=== PATIENT | male | born 1960 | race Caucasian/White ===

== ENCOUNTER 2016-12-08 10:52 | Observation (INO) ==
--- NOTE | 2016-12-08 11:17 | Emergency Department Note ---
Disposition Clinical Impression: Atrial fibrillation with RVR Disposition: Admitted As Inpatient Condition: Good Referrals: NO,PCP [Primary Care Provider] - Forms: ED Satisfaction Letter Time of Disposition: 13:06 Arrhythmia/Palpitations HPI - General Chief Complaint: ED Arrhythmia/Palpitations Stated Complaint: in A-Fib Time Seen by Provider: 12/08/16 11:10 Source: patient, family Limitations: no limitations Nursing Notes Reviewed: Yes Vital Signs Reviewed: Yes - History of Present Illness HPI Narrative: Patient presents emergency room with palpitations and history of A. fib. Onset of symptoms yesterday. Did not see his cryogenics engineer this morning but was unable to do so. Came in emergency room for evaluation Pt Subjective Complaint: palpitations Onset (ago): day(s) Duration: constant Severity: moderate Context: occurred during rest Arrhythmia History: atrial fibrillation Associated symptoms: Reports: denies other symptoms Treatments prior to arrival: vagal maneuvers, beta-mar - Related Data Home Medications Medication Instructions Recorded Confirmed Tamsulosin [Flomax] 0.4 mg PO DAILY 04/13/16 07/01/16 Rivaroxaban [Xarelto] 20 mg PO DAILY 06/10/16 07/01/16 Metoprolol [Lopressor] 25 mg PO BID 07/01/16 07/01/16 Previous Rx's Medication Instructions Recorded Dofetilide [Tikosyn] 0.5 mg PO Q12H capsule 07/05/16 Allergies Allergy/AdvReac Type Severity Reaction Status Date / Time No Known Allergies Allergy Verified 12/08/16 11:02 All systems ED: reviewed and negative except as stated. Constitutional: Denies: fever, chills Cardiovascular: Denies: chest pain, dyspnea on exertion Respiratory: Denies: cough, dyspnea, wheezes Musculoskeletal: Denies: back pain, neck pain Past Medical History - Past Medical History Attestation: Yes The following information was validated with the patient. Source: patient Medical history: Reports: arthritis, atrial fibrillation, cancer, cardiomyopathy , COPD, coronary artery disease, GERD, hyperlipidemia, osteoporosis Surgical history: Reports: herniorrhaphy, orthopedic, other, other Psychiatric history: Reports: no psych history - Social History Smoking Status: Former smoker Smokeless Tobacco Status: No Alcohol use: Reports: none Drug use: Reports: none Physical Exam - General Limitations: no limitations General appearance: alert, in no apparent distress - Chest Chest inspection: Present: normal inspection, symmetric chest wall rise - Respiratory Respiratory exam: Present: normal lung sounds bilaterally. Absent: respiratory distress, wheezes, accessory muscle use - Cardiovascular Cardiovascular exam: Present: tachycardia, irregular rhythm, normal heart sounds - Extremities Exam Extremities exam: Present: normal inspection, full ROM. Absent: pedal edema - Back Exam Back exam: Present: normal inspection, full ROM - Neurological Exam Neurological exam: Present: alert, oriented X3, CN II-XII intact, normal gait - Psychiatric Psychiatric exam: Present: normal affect, normal mood Course Course Narrative: Patient seen and examined the time of arrival. See history of present illness. 56-year-old male presents emergency room for evaluation of A. fib with RVR. Long-standing history of this illness. He is on several medications for. He has been cardioverted 3 times in the past by the cryogenics engineer team here at this hospital. Patient denies any chest pain shortness of breath headache vision changes nausea vomiting or diarrhea. No recent illnesses fevers or chills. Patient said that he felt onset yesterday afternoon. They attempted to be seen at the cardiology office today and not able to be evaluated. Patient came to the emergency room at that time. Patient has been appears to be A. fib RVR on the monitor. Basic cardiac evaluation be completed. Cardizem drip to be ordered. Consultation placed to the cryogenics engineer Dr. Bob on arrival here just to make sure that they are aware the patient is here. He had no other recommendations except for hospital admission and then cardiac evaluation as an inpatient. Patient is followed by Dr. Jack Blount and was told to possibly get a ablation completed if he went back into A. fib. Patient otherwise has no acute findings. Lungs are clear heart is regular but stable. Patient has normal vital signs at this time except for tachycardia. Disposition pending treatment course and medication intervention. - Reevaluation(s) Reevaluation #1: Labs are within normal limits. Troponin is negative. Chest x-ray stable. Patient started on Cardizem drip with minimal change in the heart rate. He says that he never responsive medications appropriately. Patient otherwise has no other symptoms at this time. Admission process completed. and I reviewed the patient's presentation symptoms and medical history. No other recommendations from a hospitalist at this time. Patient will be admitted for further evaluation and definitive management. Patient stable resting comfortably in the bed with appropriate intervention provided. Vision is already on Cymbalta no further anticoagulation needed at this point. Time: 13:05 Vital Signs Temperature 98.3 F 12/08/16 10:57 Pulse Rate 112 12/08/16 10:57 Respiratory Rate 20 12/08/16 10:57 Blood Pressure 138/83 12/08/16 10:57 O2 Sat by Pulse Oximetry 96 12/08/16 10:57 Temperature 98.3 F 12/08/16 10:57 Pulse Rate 138 12/08/16 12:11 Respiratory Rate 18 12/08/16 12:11 Blood Pressure 130/45 12/08/16 12:11 O2 Sat by Pulse Oximetry 96 12/08/16 12:11 Oxygen Delivery Oxygen Delivery Room Air Arrhythmia/Palpitations - MDM Narrative Medical decision making narrative: Brett cedillo RVR - Medical Records Medical records reviewed: Yes I reviewed the patient's medical records. - Lab Data Lab results reviewed: Yes I reviewed the patient's lab results. Result diagrams: 12/08/16 11:25 12/08/16 11:25 Lab Results 12/08/16 12/08/16 12/08/16 Range/Units 11:25 11:25 11:25 WBC 24.1 H (4.3-11.1) K/mcL RBC 5.12 (4.19-5.50) M/mcL Hgb 14.2 (12.9-16.9) g/dL Hct 43.6 (37.5-50.1) % MCV 85.2 (83.0-100.0) fL MCH 27.7 L (28.0-33.3) pg MCHC 32.6 (31.6-35.5) g/dL RDW 13.4 (11.5-14.5) % Plt Count 259 (140-400) K/mcL MPV 10.3 (9.4-12.4) fL Immature Gran % 0.2 (0-4) % Seg Neutrophils % 19.7 % Lymphocytes % 75.1 % Monocytes % 3.0 % Eosinophils % 1.6 % Basophils % 0.4 % Neutrophils # 4.8 (1.6-8.9) K/mcL Lymphocytes # 18.1 H (0.6-4.6) K/mcL Monocytes # 0.7 (0.0-1.3) K/mcL Eosinophils # 0.4 (0.0-0.6) K/mcL Basophils # 0.1 (0.0-0.2) K/mcL Smudge Cells Present A (Not Present) Platelet Estimate Normal (Normal) PT (9.4-12.1) Seconds INR APTT (26.0-36.0) Seconds Sodium 142 (136-145) mEq/L Potassium 4.0 (3.5-4.5) mEq/L Chloride 109 (98-109) mEq/L Carbon Dioxide 22 (19-29) mEq/L BUN 18 (8-26) mg/dL Creatinine 0.92 (0.72-1.25) mg/dL Est GFR ( Amer) > 60 (> 60) Est GFR (Non-Af Amer) > 60 (> 60) BUN/Creatinine Ratio 20 (6-26) Glucose 144 H (70-99) mg/dL Calculated Osmolality 298 (280-300) Calcium 9.5 (8.6-10.8) mg/dL Troponin I 0.00 (0-0.03) ng/mL 12/08/16 Range/Units 11:25 WBC (4.3-11.1) K/mcL RBC (4.19-5.50) M/mcL Hgb (12.9-16.9) g/dL Hct (37.5-50.1) % MCV (83.0-100.0) fL MCH (28.0-33.3) pg MCHC (31.6-35.5) g/dL RDW (11.5-14.5) % Plt Count (140-400) K/mcL MPV (9.4-12.4) fL Immature Gran % (0-4) % Seg Neutrophils % % Lymphocytes % % Monocytes % % Eosinophils % % Basophils % % Neutrophils # (1.6-8.9) K/mcL Lymphocytes # (0.6-4.6) K/mcL Monocytes # (0.0-1.3) K/mcL Eosinophils # (0.0-0.6) K/mcL Basophils # (0.0-0.2) K/mcL Smudge Cells (Not Present) Platelet Estimate (Normal) PT 20.3 H (9.4-12.1) Seconds INR 1.8 APTT 40.9 H (26.0-36.0) Seconds Sodium (136-145) mEq/L Potassium (3.5-4.5) mEq/L Chloride (98-109) mEq/L Carbon Dioxide (19-29) mEq/L BUN (8-26) mg/dL Creatinine (0.72-1.25) mg/dL Est GFR ( Amer) (> 60) Est GFR (Non-Af Amer) (> 60) BUN/Creatinine Ratio (6-26) Glucose (70-99) mg/dL Calculated Osmolality (280-300) Calcium (8.6-10.8) mg/dL Troponin I (0-0.03) ng/mL - Radiology Data Radiology results reviewed: Yes I reviewed the patient's radiology results. Chest x-ray stable - EKG Data EKG attestation: Yes I reviewed and interpreted this EKG. Rate: tachycardia Rhythm: A.Fib Critical Care Time Critical Care Time: Yes Total Critical Care Time: 35 Attestation: Independent of procedures and medical intervention Attestation Statement - Attestation Attestation: I examined this patient and my medical decision-making was reviewed with the PHARMACY ORDER ENTRY TECHNICIAN/PA/Advanced Practice Nurse/Resident Physician. I agree with the documented findings, disposition and treatment plan as described except to the extent set forth below. Patient to the emergency department with a chief complaint of A. fib. He states his palpitations started yesterday. He tried to go to the cardiology office but there was not a cryogenics engineer in to see him. History of the same. Recently placed on Tikacin and has done well on that until this point. Patient states he was told he needed an ablation of happened again. On examination is awake alert no acute distress. Lungs clear. Heart tachycardia and irregularly irregular. Heart rate running 140s to 150s. Plan. Cardizem, cardiac workup, cardiac consultation and admission. Patient is anticoagulated on Xarelto.
[2016-12-08 11:39] LABS: Basophils # 0.1 K/mcL (0.0-0.2); Basophils % 0.4 %; Eosinophils # 0.4 K/mcL (0.0-0.6); Eosinophils % 1.6 %; Hematocrit 43.6 % (37.5-50.1); Hemoglobin 14.2 g/dL (12.9-16.9); Immature Granulocytes % 0.2 % (0-4); Lymphocytes # 18.1 K/mcL (0.6-4.6); Lymphocytes % 75.1 %; Mean Corpuscular HGB Conc 32.6 g/dL (31.6-35.5); Mean Corpuscular Hemoglobin 27.7 pg (28.0-33.3); Mean Corpuscular Volume 85.2 fL (83.0-100.0); Mean Platelet Volume 10.3 fL (9.4-12.4); Monocytes # 0.7 K/mcL (0.0-1.3); Platelet Count 259 K/mcL (140-400); Red Blood Count 5.12 M/mcL (4.19-5.50); Red Cell Distribution Width 13.4 % (11.5-14.5); Segmented Neutrophils % 19.7 %
[2016-12-08 11:43] LABS: Neutrophils # 4.8 K/mcL (1.6-8.9)
[2016-12-08 11:46] LABS: BUN/Creatinine Ratio 20 (6-26); Blood Urea Nitrogen 18 mg/dL (8-26); Calcium 9.5 mg/dL (8.6-10.8); Carbon Dioxide 22 mEq/L (19-29); Chloride 109 mEq/L (98-109); Glucose 144 mg/dL (70-99); Osmolality,Calculated 298 (280-300); Sodium 142 mEq/L (136-145); eGFR For African Americans > 60 (> 60); eGFR For Non-African Americans > 60 (> 60)
[2016-12-08 11:55] LABS: INR 1.8; Prothrombin Time 20.3 Seconds (9.4-12.1)
[2016-12-08 11:57] LABS: Activated Partial Thrombo Time 40.9 Seconds (26.0-36.0)
[2016-12-08 12:02] LABS: Platelet Estimate Normal (Normal); Smudge Cells Present (Not Present)
[2016-12-08 12:31] LABS: Thyroid Stimulating Hormone 1.636 mcIU/mL (0.350-4.840)
--- NOTE | 2016-12-08 13:58 | Cardiology Consult Note ---
Date of Encounter: 12/08/16 Time of Encounter: 13:55 Assessment and Plan (1) Atrial fibrillation with RVR Current Visit: No Status: Acute Per cardiology: -Known history of atrial fibrillation, had been controlled with tikosyn. -Presented today with a.fib RVR. Of note, patient's metoprolol had recently been stopped in outpatient setting for concerns of shortness of breath and fatigue. -On tikosyn, xarelto. Denies missed doses of xarelto. -Denies bleeding of blood loss. -Started on cardizem drip in ER. Titrate to keep HR less than 100 beats/min and BP greater than 100 systolic. -Per review of old records, it appears patient has had multiple cardioversions. -Mg 1.9. TSH within normal limits. -Recommend titration of cardizen drip as above for rate control. Continue Xarelto. -Will discuss with Dr. Bob regarding continuing current tikosyn dose ( anticipate may need to stop with failed therapy) and resuming BB. -Will make patient NPO after midnight-- will discuss with Dr. Jack Blount tomorrow potential need for ablation. -Will continue to monitor. (ESVIN) (2) Nonischemic cardiomyopathy Current Visit: No Status: Chronic Per cardiology: -Known history of [id number] cardiomyopathy. -Most recent echo 03/20/16 with LVEF 60%. -ANDIE 02/11/2016 with LVEF 30%. -Beta mar recently stopped. -Patient states 40 pound weight gain since June. -Weight June 236lbs, 239lbs July, and 253.2lbs November. -Chest x-ray with no acute process. Mild pedal edema that states about baseline. Otherwise, euvolemic on exam. -Will check echocardiogram for history of cardiomyopathy. -Will continue to monitor. (ESVIN) (3) Chronic lymphocytic leukemia Current Visit: No Status: Chronic Per cardiology: -KNown CLL. -WBC today 24.51. -WBC June 2016. -Management per primary service. (ESVIN) Discussion w patient/family: The assessment and plan as outlined above was discussed with the patient and/or family members who expressed understanding and agreement. All questions were answered. Thank you for involving us in the care of your patient. Please call with any questions. Patient seen and examined with CANDACE Jarquin Discussed and reviewed with Dr. Bob. History of Present Illness Consult date: 12/08/16 Requesting physician: Rylan Cantor Consult reason: a.fib RVR Chief complaint: a.fib History of present illness: Mr. Smith is a 56 year old male with a relevant past medical history of VIDA with CPAP, CLL, atrial fibrillation status post multiple cardioversions, non- ischemic cardiomyopathy, CHF. Patient has long standing history of atrial fibrillation with RVR. Patient states he felt ok until yesterday afternoon when he could tell he was out of rhythm again. Patient denies recent illness. Patient admits to gaining 40 pounds since June. Patient states was blaming weight gain on metoprolol so it was discontinued approximately 2 weeks ago. Patient states that mentioned possible a.fib ablation. Patient presented to our office, requesting ECG, however there were no providers in office today so patient decided to come to ER. Patient was noted to be in a.fib with RVR and cardiology was consulted. Patient reports compliance with Tikosyn and has not missed any doses. Also compliance with Xarelto and has not missed any doses and denies any active bleeding or blood loss. (ESVIN) Past Med Surg Social Fam HX - Past Medical History Attestation: Yes The following information was validated with the patient. Source: patient, old records reviewed, obtained from family Medical history: arthritis, atrial fibrillation, cancer, cardiomyopathy, COPD, coronary artery disease, GERD, hyperlipidemia, osteoporosis Psychiatric history: no psych history - Past Surgical History Surgical History: herniorrhaphy, orthopedic, other, other - Social History Smoking Status: Former smoker Smokeless Tobacco Status: No Alcohol use: none Drug use: none - Family History Mother Family Member Ethnicity: Non- Living Status: Hx Family Cardiac Disorders: Yes (CABG) Hx Family Respiratory Disorders: Yes (COPD) Hx Family Cancer: No Hx Family Endocrine Disorder: Yes (renal diease) Father Family Member Ethnicity: Non- Living Status: Still Living Hx Family Cardiac Disorders: Yes (bad valve, aneysum heart stents, [place]) Hx Family Respiratory Disorders: No Medications and Allergies Tamsulosin [Flomax] 0.4 mg PO DAILY 04/13/16 [History] Rivaroxaban [Xarelto] 20 mg PO DAILY 06/10/16 [History] Metoprolol [Lopressor] 25 mg PO BID 07/01/16 [History] Dofetilide [Tikosyn] 0.5 mg PO Q12H capsule 07/05/16 [Rx] Allergies No Known Allergies Allergy (Verified 12/08/16 13:31) All Systems Review: A 10-system review of systems was performed and is negative for pertinent findings except as documented above in the HPI. - Constitutional Constitutional: weight gain - Cardiovascular Cardiovascular: as per HPI, rapid heart rate Physical Examination Vital Signs, Last 4 Hours Temp Pulse Resp BP Pulse Ox 12/08/16 13:50 98.3 F 87 18 119/69 98 12/08/16 13:30 18 125/70 12/08/16 13:08 106 18 125/70 97 General: Conversant, No Apparent Distress HEENT: Atraumatic, Normocephaly, Mucus Membranes Moist Neck: No JVD, Normal carotid pulses Cardiac: Other (Irregularly, irregular. Tachycardic. ) Lungs: Normal Breath Sounds, No Wheeze, Rales, Rhonchi Neuro: Alert and responsive, No focal deficits noted Abdomen: Soft, Non-Tender Skin: No rashes noted on visualized skin Musculoskeletal: No Chest Wall Tenderness Extremities: No Clubbing, No Cyanosis, Normal Pulses, Other (Mild non-pitting pedal edema. ) Results 12/08/16 11:25 12/08/16 11:25 Impressions Chest X-Ray 12/08/16 11:24 IMPRESSION: No evidence of acute cardiopulmonary disease. D/ / Duncan Gould MD / Duncan Gould MD Interpreting Provider: Duncan Gould MD Active Medications Diltiazem HCl 125 mg/ Dextrose 125 mls @ 5 mls/hr IVC .Q24H SHIREEN; 5 MG/HR PRN Reason: Protocol Stop: 06/09/17 11:46 Last Admin: 12/08/16 12:11 Dose: 5 mg/hr, 5 mls/hr Laboratory Tests 06/10/16 06/19/16 07/04/16 11:27 00:38 09:08 WBC 24.5 H 21.5 H 23.0 H Potassium Creatinine Troponin I TSH 12/08/16 12/08/16 12/08/16 11:25 11:25 11:25 WBC 24.1 H Potassium 4.0 Creatinine 0.92 Troponin I 0.00 TSH 1.636 - Imaging and Cardiology Echo: report reviewed Cardiac cath: report reviewed - EKG Interpretation EKG results cardiology: personally reviewed (ECG with atrial fibrillation with RVR, HR 145. QT319, QTC 403.), other (Telemetry reviewed and currently atrial fibrillation RVR with HR 120s.) Consult Discharge Plan - Plan Referrals: Becky Davis MD [Primary Care Provider] -
[2016-12-08 14:27] LABS: Magnesium 1.9 mg/dL (1.6-2.6)
[2016-12-08] MEDS ORDERED: Acetaminophen 325 MG TABLET PO ONE (15:50)
[2016-12-08] MEDS ORDERED: Acetaminophen 325 MG TABLET PO PRN (16:08)
--- NOTE | 2016-12-08 16:16 | Internal Med History&Physical ---
Date of Encounter: 12/08/16 Time of Encounter: 16:14 Assessment and Plan (1) Atrial fibrillation with RVR Current visit: No Status: Acute We will restart Cardizem drip and titrate to maintain heart rate between 80 and 110 as long as blood pressure tolerates. Cardiology was consulted. 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 Trend troponin to rule out ACS. Continue with Xarelto, hold tikosyn for now - we will discuss with cardiology. He is at high risk for morbidity and complications due to IV Cardizem which requires continuous intensive cardiac monitoring and titration. (2) DVT prophylaxis Current visit: No Status: Acute on Xarelto (3) Cardiomyopathy Current visit: No Status: Acute No evidence of exacerbation. We will monitor for fluid overload Qualifiers: Cardiomyopathy type: unspecified Qualified Code(s): I42.9 - Cardiomyopathy , unspecified (4) BPH (benign prostatic hyperplasia) Current visit: No Status: Chronic Continue with Flomax. Qualifiers: Prostatic enlargement morphology: unspecified morphology Lower urinary tract symptom presence: symptoms absent Qualified Code(s): N40.0 - Benign prostatic hyperplasia without lower urinary tract symptoms (5) Obesity (BMI 30-39.9) Current visit: No Status: Chronic Outpatient follow-up. Outpatient weight loss regimen. (6) Chronic lymphocytic leukemia Current visit: No Status: Chronic We will monitor white blood cell count. He is not currently receiving treatment. Being monitored by PCP. Internal Medicine - H&P: HPI Chief complaint: Palpitations Admitted From: Emergency Dept Plans for Post Hospital Care: Home History of present illness: Mr. Smith is a 56 year old male with past medical history of paroxysmal atrial fibrillation and nonischemic cardiomyopathy, and multiple cardioversions for recurrent bouts of atrial ablation with rapid ventricular response. He presented to the hospital for palpitations that started last night and felt as fluttering in the middle of the chest, continuous through the night, with no aggravating or alleviating factors. Denies associated chest pain. Reports some dyspnea on exertion. In the emergency department he was found to be in atrial fibrillation with rapid ventricular response. He was started on IV diltiazem drip. A 10 point review of systems was negative except as above. Past Med Surg Social Fam HX - Past Medical History Medical history: arthritis, atrial fibrillation, cancer, cardiomyopathy, COPD, coronary artery disease, GERD, hyperlipidemia, osteoporosis Psychiatric history: no psych history - Past Surgical History Surgical History: herniorrhaphy, orthopedic, other, other - Social History Smoking Status: Former smoker Smokeless Tobacco Status: No Alcohol use: none Drug use: none - Family History Mother Family Member Ethnicity: Non- Living Status: Hx Family Cardiac Disorders: Yes (CABG) Hx Family Respiratory Disorders: Yes (COPD) Hx Family Cancer: No Hx Family Endocrine Disorder: Yes (renal diease) Father Family Member Ethnicity: Non- Living Status: Still Living Hx Family Cardiac Disorders: Yes (bad valve, aneysum heart stents, [place]) Hx Family Respiratory Disorders: No Internal Medicine - H&P: Meds Tamsulosin [Flomax] 0.4 mg PO DAILY 04/13/16 [History] Rivaroxaban [Xarelto] 20 mg PO DAILY 06/10/16 [History] Metoprolol [Lopressor] 25 mg PO BID 07/01/16 [History] Dofetilide [Tikosyn] 0.5 mg PO Q12H capsule 07/05/16 [Rx] Allergies No Known Allergies Allergy (Verified 12/08/16 13:31) All Systems PM: A 10-system review of systems was performed and is negative for pertinent findings except as documented above in the HPI. - Constitutional Vitals: Temp Pulse Resp BP Pulse Ox 98.4 F 120 16 121/85 94 12/08/16 15:31 12/08/16 15:31 12/08/16 15:31 12/08/16 15:31 12/08/16 15:31 General appearance: Present: A&O X 3 - Eye Eye exam: Present: PERRL, conjuntiva pink, sclera anicteric Pupils: Present: PERRL - Respiratory Respiratory exam: Present: CTAB. Absent: accessory muscle use, rales, rhonchi, wheezes - Cardiovascular Cardiovascular exam: Present: irregular rhythm, +S1, +S2, tachycardia. Absent: diastolic murmur, gallop, rubs, systolic murmur - GI/Abdominal GI/Abdominal exam: Present: normal bowel sounds, soft, no peritoneal signs. Absent: distended, tenderness - Extremities Exam Extremities exam: Present: warm, radial pulses palpable and symetrical. Absent : calf tenderness, cyanotic, pedal edema - Neurological Exam Neurological exam: Present: CN II-XII intact, oriented X3, no focal deficits. Absent: pronater drift, facial droop, speech deficit - Skin Skin exam: Present: dry, intact Internal Med - H&P Results - Labs CBC & Chem 7: 12/08/16 11:25 12/08/16 11:25 - EKG Data -: EKG Interpreted by Myself (Brett cedillo with RVR 145 bpm.)
--- NOTE | 2016-12-08 16:28 | Event Note ---
Date of Encounter: 12/08/16 Time of Encounter: 16:30 - Cardiology Event Note Discussed and reviewed with Dr. Bob, will resume home Tikosyn 0.5mg every 12 hrs (Dr. Arndt to order), continue Xarelto. NPO for possible DCCV in am ( will discuss with Dr. Jack Blount in am possible ablation).
--- NOTE | 2016-12-08 16:46 | Electrocardiograph Report ---
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
[2016-12-08] MEDS ORDERED: 0.9 % Sodium Chloride 1,000 ML ONE (19:53)
[2016-12-08] MEDS ORDERED: 0.9 % Sodium Chloride 1,000 ML IVC SCH (20:15)
[2016-12-09 01:44] LABS: Hematocrit 38.4 % (37.5-50.1); Hemoglobin 12.8 g/dL (12.9-16.9); Mean Corpuscular HGB Conc 33.3 g/dL (31.6-35.5); Mean Corpuscular Hemoglobin 28.6 pg (28.0-33.3); Mean Corpuscular Volume 85.9 fL (83.0-100.0); Mean Platelet Volume 10.6 fL (9.4-12.4); Platelet Count 242 K/mcL (140-400); Red Blood Count 4.47 M/mcL (4.19-5.50); Red Cell Distribution Width 13.6 % (11.5-14.5)
[2016-12-09 02:00] LABS: BUN/Creatinine Ratio 21 (6-26); Blood Urea Nitrogen 18 mg/dL (8-26); Carbon Dioxide 22 mEq/L (19-29); Chloride 109 mEq/L (98-109); Glucose 129 mg/dL (70-99); Osmolality,Calculated 298 (280-300); Potassium 3.7 mEq/L (3.5-4.5); Sodium 142 mEq/L (136-145); eGFR For African Americans > 60 (> 60); eGFR For Non-African Americans > 60 (> 60)
[2016-12-09 02:26] LABS: Eosinophils # 0.9 K/mcL (0.0-0.6); Monocytes # 1.3 K/mcL (0.0-1.3); Neutrophils # 2.1 K/mcL (1.6-8.9); Smudge Cells Present (Not Present)
[2016-12-09 02:27] LABS: Platelet Estimate Normal (Normal); Reactive Lymphocytes Present (Not Present)
[2016-12-09] MEDS ORDERED: *HR* Rivaroxaban 10 MG TABLET PO SCH (09:00)
--- NOTE | 2016-12-09 09:54 | ECHO - Doppler Report ---
Echocardiogram Name: Masood Smith Date of Study: 12/09/2016 Date: 1960 Ht: 70.0 in Medical Record#: [id number] Age: 56 Wt: 250.0 lb Gender: Male BSA: 2.29 Order #: [id number] Location: [facility] Room #: [id number] Reading Physician: Jose Arndt MD, [facility] Crusher Loader Operator: Jorge Souza RN Ordering Physician: Mikayla Arevalo CNP Primary Physician: Becky Davis MD Indications: Arrhythmia Impressions: Normal LV systolic function, LVEF 60%. Normal left ventricular diastolic function. Normal right ventricular size and function. Moderately dilated left atrium. Mild aortic regurgitation. Mild mitral regurgitation. Mild pulmonic regurgitation. No evidence of pulmonary hypertension. Left Ventricular Wall Motion: Rest Echo Findings All wall segments showed normal motion. Findings: Study Quality * Technically adequate exam. ECG Findings * Normal sinus rhythm. Left Ventricle * Normal LV systolic function, LVEF 60%. * Normal LV chamber size and wall thickness. * Normal left ventricular diastolic function. Right Ventricle * Normal right ventricular size and function. Left Atrium * Moderately dilated left atrium. Right Atrium * Mildly dilated right atrium. Aorta * Normally sized aortic root. Pericardium * There is no pericardial effusion present. IVC * The IVC is mildly dilated with normal inspiratory collapse. Aortic Valve * Trileaflet aortic valve. * Mildly sclerotic aortic valve leaflets. * No aortic stenosis. * Mild aortic regurgitation. Mitral Valve * Normal mitral valve structure. * No mitral stenosis. * Mild mitral regurgitation. Tricuspid Valve * Normal tricuspid valve structure. * No tricuspid stenosis. * Trace tricuspid regurgitation. * No evidence of pulmonary hypertension. Pulmonic Valve * Pulmonic valve not well visualized. * No pulmonic stenosis. * Mild pulmonic regurgitation. History Family History of CAD 03/20/2016 a Previous Echo was performed. Measurements: BP: 121/ 75 2D Normal Values RVIDd: 3.00 cm IVSd: .80 cm 0.6 - 1.0 cm LVIDd: 5.10 cm 3.7 - 5.6 cm LVPWd: .80 cm 0.6 - 1.1 cm LVIDs: 3.00 cm 1.5 - 3.6 cm AO: 3.00 cm < 4.0 cm %FS: 41.20 cm >25 % LA volume: 90 Mitral Valve Peak E:.99 m/sec Peak A:.78 m/sec E/A Ratio:1.3 Peak E' Lat Tolu:11.9 cm/s Peak E' Med Tolu:9.55 cm/s E/E' Lat Ratio:8.3 E/E' Med Ratio:10.4 Aortic Valve AI pressure Half-time: 625.00 msec Tricuspid Valve TV Regurg Peak Grad: 26.00mmHg TV Regurg Peak Tolu: 2.55m/sec Updated by Jose Arndt MD, [facility] on 12/09/2016 9:49:57 AM electronically signed on 12/09/2016 9:50:27 AM with status of Final Wall Motion Alanis: 1=Normal, 2=Hypokinesis, 3=Akinesis, 4=Dyskinesis, 5=Aneurysmal, 6=Hyperkinetic, X=Not Visualized (Blank)=Missing
[2016-12-09] MEDS ORDERED: Diltiazem CD (24hr) 120 MG CAPSULE PO SCH (10:15)
[2016-12-09 10:39] VITALS: BP 136/84
--- NOTE | 2016-12-09 10:39 | Cardiology Progress Note ---
Date of Encounter: 12/09/16 Time of Encounter: 08:30 Assessment and Plan (1) Atrial fibrillation with RVR Current Visit: No Status: Acute Per cardiology: -Known history of atrial fibrillation, had been controlled with tikosyn. -Presented yesterday with sally RVR. Of note, patient's metoprolol had recently been stopped in outpatient setting for concerns of shortness of breath and fatigue. -On tikosyn, xarelto, and cardizem drip. Denies missed doses of xarelto. Patient and family educated on importance of medication compliance. Patient and family state understanding. -Denies bleeding or blood loss. -Per review of old records, it appears patient has had multiple cardioversions. -Mg 1.9. TSH within normal limits. -Patient converted to SR at 2322. Patient currently SR with HR 63. -Echo 12/09/16 with LVEF 60%, moderately dilated left atrium, mild aortic regurgiatation, mild mitral regurgitation, mild pulmonic regurgitation, no evidence of pulmonary hypertension, all wall segments with normal motion. -ECG today with sinus rhythm, HR 64. Qt 439ms, Qtc 448ms, QRS 97ms. Baseline ECG with Qt 468, Qtc 485. -Will start cardizem CD 120mg po daily. Continue Tikosyn-- kidney fxn stable. -Will discontinue cardizem drip. -Will start cardiac diet. -Cardiology will sign off and will set up follow up appointment with Dr.John Blount. -Will schedule patient for nurse visit in cardiology office on Thursday for ECG to check Qt/Qtc with addition of CCB to Tikosyn (per discussion with Dr. Bob ). -Patient and state understanding and agree with plan. (ESVIN) (2) Nonischemic cardiomyopathy Current Visit: No Status: Chronic Per cardiology: -Known history of non-ischemic cardiomyopathy. -Previous echo 03/20/16 with LVEF 60%. -ANDIE 02/11/2016 with LVEF 30%. -Beta mar recently stopped. -Patient states 40 pound weight gain since June. -Weight June 236lbs, 239lbs July, and 253.2lbs November. -Chest x-ray with no acute process. No edema and euvolemic on exam. -Echo 12/09/16 with LVEF 60%. -Will continue to monitor in outpatient setting. (ESVIN) (3) Chronic lymphocytic leukemia Current Visit: No Status: Chronic Per cardiology: -Known history of CLL. -WBC about baseline. -Has been seen by oncology previously. -Afebrile -Management per primary service. (ESVIN) Discussion w patient/family: The assessment and plan as outlined above was discussed with the patient and/or family members who expressed understanding and agreement. All questions were answered. Thank you for involving us in the care of your patient. Please call with any questions. Patient seen and examined with CANDACE Jarquin Discussed and reviewed with Dr. Bob. Subjective Principal diagnosis: atrial fibrillation Interval history: Patient states he feels he is back in sinus rhythm now. Again, has not missed any doses of xarelto or tikosyn. Patient states he would like to go home today. (ESVIN) Objective Vital Signs Temp Pulse Resp BP Pulse Ox 12/09/16 06:24 98.3 F 65 15 121/75 97 12/09/16 04:13 98 F 73 18 102/61 99 12/09/16 00:00 97.6 F 62 18 107/71 98 12/08/16 22:37 85 109/82 12/08/16 22:00 120 104/74 12/08/16 21:30 97 114/87 12/08/16 21:15 117 129/74 12/08/16 21:00 119 112/57 12/08/16 19:15 97.6 F 107 16 125/94 95 12/08/16 18:00 128 122/95 12/08/16 17:45 86 115/89 12/08/16 17:30 115 141/88 12/08/16 17:15 126 116/94 12/08/16 17:00 140 135/82 12/08/16 15:31 98.4 F 120 16 121/85 94 12/08/16 13:51 98 12/08/16 13:50 98.3 F 87 18 119/69 98 12/08/16 13:30 18 125/70 12/08/16 13:08 106 18 125/70 97 12/08/16 12:11 138 18 130/45 96 12/08/16 11:32 95 12/08/16 11:10 127 18 118/67 95 12/08/16 10:57 98.3 F 112 20 138/83 96 General: Conversant, No Apparent Distress HEENT: Atraumatic, Normocephaly, Mucus Membranes Moist Neck: No JVD, Normal carotid pulses Cardiac: Reg Rate and Rhythm, Normal S1 and S2, No Murmur Lungs: Normal Breath Sounds, No Wheeze, Rales, Rhonchi Neuro: Alert and responsive, No focal deficits noted Abdomen: Soft, Non-Tender Skin: No rashes noted on visualized skin Musculoskeletal: No Chest Wall Tenderness Extremities: No Clubbing, No Cyanosis, No Edema, Normal Pulses Results 12/09/16 00:46 12/09/16 00:46 Lab Results Impressions Chest X-Ray 12/08/16 11:24 IMPRESSION: No evidence of acute cardiopulmonary disease. D/ / Duncan Gould MD / Duncan Gould MD Interpreting Provider: Duncan Gould MD Active Medications Acetaminophen (Tylenol) 650 mg PO Q6HR PRN PRN Reason: Mild Pain (1-3) Stop: 06/09/17 16:09 Diltiazem HCl (Cardizem Cd) 120 mg PO DAILY SHIREEN Stop: 06/10/17 10:16 Last Admin: 12/09/16 10:31 Dose: 120 mg Dofetilide (Tikosyn) 0.5 mg PO BID SHIREEN PRN Reason: Protocol Stop: 06/09/17 21:01 Last Admin: 12/09/16 09:29 Dose: 0.5 mg Diltiazem HCl 125 mg/ Dextrose 125 mls @ 5 mls/hr IVC .Q24H SHIREEN; 5 MG/HR PRN Reason: Protocol Stop: 06/09/17 11:46 Last Titration: 12/08/16 16:04 Dose: 7.5 mg/hr, 7.5 mls/hr Rivaroxaban (Xarelto) 20 mg PO DAILY SHIREEN Stop: 06/10/17 09:01 Last Admin: 12/09/16 09:25 Dose: 20 mg Tamsulosin HCl (Flomax) 0.4 mg PO HS SHIREEN PRN Reason: Protocol Stop: 06/09/17 21:01 Last Admin: 12/08/16 19:57 Dose: 0.4 mg Laboratory Tests 12/08/16 12/08/16 12/08/16 11:25 11:25 11:25 WBC 24.1 H Hgb Potassium 4.0 Creatinine Magnesium 1.9 Troponin I 0.00 TSH 1.636 12/08/16 12/09/16 12/09/16 17:29 00:46 00:46 WBC 21.3 H Hgb 12.8 L Potassium Creatinine Magnesium Troponin I 0.00 0.00 TSH 12/09/16 00:46 WBC Hgb Potassium 3.7 Creatinine 0.86 Magnesium Troponin I TSH - Imaging and Cardiology Chest Xray: report reviewed Echo: report reviewed - EKG Interpretation EKG results cardiology: personally reviewed (ECG today with SR, HR 64. Qt 439ms , Qtc 448ms, QRS 97ms.), other (Telemetry reviewed. Pateint converted to sinus rhythm around 2322. Patient currently SR with HR 63. Longest pause noted to be 2.1 seconds. Occasional PVCs.) Consult Discharge Plan - Plan Referrals: Becky Davis MD [Primary Care Provider] -
--- NOTE | 2016-12-09 14:28 | Discharge Summary ---
Date of Encounter: 12/09/16 Time of Encounter: 14:25 - Discharge Diagnosis (1) Atrial fibrillation with RVR Priority: Primary Status: Acute (2) Nonischemic cardiomyopathy Priority: Secondary Status: Chronic (3) Chronic lymphocytic leukemia Priority: Secondary Status: Chronic - Discharge Medications Prescriptions: Diltiazem CD (24hr) [Cardizem CD] 120 mg PO DAILY #120 cap.er.24h Home Medications: Tamsulosin [Flomax] 0.4 mg PO DAILY 04/13/16 [History] Rivaroxaban [Xarelto] 20 mg PO DAILY 06/10/16 [History] Metoprolol [Lopressor] 25 mg PO BID 07/01/16 [History] Dofetilide [Tikosyn] 0.5 mg PO Q12H capsule 07/05/16 [Rx] Diltiazem CD (24hr) [Cardizem CD] 120 mg PO DAILY #120 cap.er.24h 12/09/16 [Rx] Allergies/Adverse Reactions: Allergies No Known Allergies Allergy (Verified 12/08/16 13:31) Procedures/tests Complete & Pending: Procedures Performed prior 72 hours Category Date Time Status EKG [ECG 12 lead ECG] [ECG] AM 0600 Y 12/09/16 06:00 Completed Date of admission: 12/08/16 16:09 Primary care physician: Becky Kaur Discharging clinician: Tarik Laguna - Patient Status Disposition: Home, Self-Care Condition: Good Overall status at discharge: patient is progressing back to baseline - Discharge Instructions Instructions: Diltiazem (By mouth), Dofetilide (By mouth), Atrial Fibrillation (DC) Follow Up With: Becky Davis MD [Primary Care Provider] - Jack Blount MD [Partnered Physician] - 12/30/16 9:45 am (you will have a EKG on 12/11 @9am in the cardio office) - Diet and Activity Activity: increase activity as tolerated Diet: low fat, low cholesterol, low salt diet Interval History: Mr. Smith is a 56 year old male with past medical history of paroxysmal atrial fibrillation and nonischemic cardiomyopathy, and multiple cardioversions for recurrent bouts of atrial ablation with rapid ventricular response. He presented to the hospital for palpitations that started last night and felt as fluttering in the middle of the chest, continuous through the night, with no aggravating or alleviating factors. Denies associated chest pain. Reports some dyspnea on exertion. In the emergency department he was found to be in atrial fibrillation with rapid ventricular response. He was started on IV diltiazem drip. Hospital course: cardiology was consulted. Plan was to get a cardioversion this morning. patient was converted to sinus rhythum. Cardiology recommended Cardizem extended release 120 mg every day. I am copying a part of cardiology progress note. This will help to understand the thought process during the follow-up. This is a copy and paste part of a progress report only for purposes of better understanding of her thought processes of cardiology. "Per cardiology: -Known history of atrial fibrillation, had been controlled with tikosyn. -Presented yesterday with sally YAÑEZ. Of note, patient's metoprolol had recently been stopped in outpatient setting for concerns of shortness of breath and fatigue. -On tikosyn, xarelto, and cardizem drip. Denies missed doses of xarelto. Patient and family educated on importance of medication compliance. Patient and family state understanding. -Denies bleeding or blood loss. -Per review of old records, it appears patient has had multiple cardioversions. -Mg 1.9. TSH within normal limits. -Patient converted to SR at 2322. Patient currently SR with HR 63. -Echo 12/09/16 with LVEF 60%, moderately dilated left atrium, mild aortic regurgiatation, mild mitral regurgitation, mild pulmonic regurgitation, no evidence of pulmonary hypertension, all wall segments with normal motion. -ECG today with sinus rhythm, HR 64. Qt 439ms, Qtc 448ms, QRS 97ms. Baseline ECG with Qt 468, Qtc 485. -Will start cardizem CD 120mg po daily. Continue Tikosyn-- kidney fxn stable. -Will discontinue cardizem drip. -Will start cardiac diet. -Cardiology will sign off and will set up follow up appointment with Dr.John Blount. -Will schedule patient for nurse visit in cardiology office on Thursday for ECG to check Qt/Qtc with addition of CCB to Tikosyn (per discussion with Dr. Bob ). -Patient and state understanding and agree with plan." Plan: Patient can go home today. Cardiology will provide prescription for controlled medication which his antiarrhythmic drug. Patient can follow up with primary care doctor in 1-2 weeks. Patient will follow up with cardiology in 1-2 weeks. QUESTIONS answered. - Time Spent with Patient Total time spent providing and/or coordinating discharge services: - Constitutional Vitals: Temp Pulse Resp BP Pulse Ox 97.9 F 73 14 136/84 96 12/09/16 10:34 12/09/16 10:34 12/09/16 10:34 12/09/16 10:34 12/09/16 10:34 General appearance: Present: A&O X 3 - Head Head exam: Present: atraumatic, normocephalic - Eye Eye exam: Present: PERRL, conjuntiva pink, sclera anicteric Pupils: Present: PERRL - Neck Neck exam general surgery: Present: supple, trachea midline. Absent: lymphadenopathy - Respiratory Respiratory exam: Present: CTAB. Absent: accessory muscle use, rales, rhonchi, wheezes - Cardiovascular Cardiovascular exam: Present: RRR, +S1, +S2. Absent: diastolic murmur, gallop, rubs, systolic murmur - GI/Abdominal GI/Abdominal exam: Present: normal bowel sounds, soft, no peritoneal signs. Absent: distended, tenderness - Extremities Exam Extremities exam: Present: warm, radial pulses palpable and symetrical. Absent : calf tenderness, cyanotic, pedal edema - Neurological Exam Neurological exam: Present: CN II-XII intact, oriented X3, no focal deficits. Absent: pronater drift, facial droop, speech deficit - Skin Skin exam: Present: dry, intact
--- NOTE | 2016-12-09 17:38 | Electrocardiograph Report ---
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
== END 2016-12-09 15:30 | disposition home or self-care (01) | DRG 309 ==
LOC: EMEROO 10:52 → 2NENU 10:52
PROVIDERS: ADMIT Internal Medicine; ATTEND Internal Medicine

== ENCOUNTER 2016-12-18 22:44 | Inpatient (IN) ==
--- NOTE | 2016-12-18 23:08 | Emergency Department Note ---
Disposition Clinical Impression: Atrial fibrillation with RVR, Chronic lymphocytic leukemia Disposition: Admitted As Inpatient Condition: Good Referrals: NO,PCP [Primary Care Provider] - Forms: ED Satisfaction Letter Time of Disposition: 00:59 Arrhythmia/Palpitations HPI - General Chief Complaint: ED Arrhythmia/Palpitations Stated Complaint: afib Time Seen by Provider: 12/18/16 22:52 Source: patient Mode of arrival: ambulatory Limitations: no limitations Nursing Notes Reviewed: Yes Vital Signs Reviewed: Yes - History of Present Illness HPI Narrative: 56-year-old male presenting with palpitations. Patient has a long-standing history of atrial fibrillation. He has been cardioverted 7 times. Reports that he was admitted to the hospital here last week and was going to be cardioverted but converted back to normal sinus rhythm on Cardizem. Was placed on by mouth Cardizem and discharged home. Patient reports that at approximately 9:00 this morning, he started noticing palpitations again. He also felt some difficulty breathing and developed a headache which is typical for his atrial fibrillation. He denies any changes in vision, chest pain, abdominal pain, nausea, vomiting, diarrhea, rash, fever, pain or swelling in his legs. No history of DVT or PE. He is on Xarelto for anticoagulation. He takes diltiazem and Tikosyn . After failing multiple other antiarrhythmics. He mainly sees Dr. Blount, however, is followed by most of the cardiology team. They have discussed ablation at length that patient was wanting to wait until he retired soon and is actually scheduled for consultation in the month. - Related Data Home Medications Medication Instructions Recorded Confirmed Tamsulosin [Flomax] 0.4 mg PO DAILY 04/13/16 12/08/16 Rivaroxaban [Xarelto] 20 mg PO DAILY 06/10/16 12/08/16 Metoprolol [Lopressor] 25 mg PO BID 07/01/16 12/08/16 Previous Rx's Medication Instructions Recorded Dofetilide [Tikosyn] 0.5 mg PO Q12H capsule 07/05/16 Diltiazem CD (24hr) [Cardizem CD] 120 mg PO DAILY #120 cap.er.24h 12/09/16 Allergies Allergy/AdvReac Type Severity Reaction Status Date / Time No Known Allergies Allergy Verified 12/18/16 22:58 All systems ED: reviewed and negative except as stated. Eyes: Denies: vision change Cardiovascular: Reports: palpitations, dyspnea on exertion. Denies: chest pain , syncope Respiratory: Reports: dyspnea. Denies: cough, sputum production Gastrointestinal: Denies: abdominal pain, nausea, vomiting Musculoskeletal: Denies: neck pain Integumentary: Denies: rash Neurological: Reports: headache. Denies: weakness, numbness, paresthesias, confusion, abnormal gait, vertigo Endocrine: Reports: fatigue Hematological/Lymphatic: Reports: easy bruising Past Medical History - Past Medical History Attestation: Yes The following information was validated with the patient. Source: patient Medical history: Reports: arthritis, atrial fibrillation, cancer, cardiomyopathy , COPD, coronary artery disease, GERD, hyperlipidemia, osteoporosis Surgical history: Reports: herniorrhaphy, orthopedic, other, other Psychiatric history: Reports: no psych history - Social History Smoking Status: Former smoker Smokeless Tobacco Status: No Alcohol use: Reports: none Drug use: Reports: none Physical Exam - General Limitations: no limitations General appearance: alert, in no apparent distress - Head Head exam: atraumatic, normocephalic, normal inspection - Eye Eye exam: Present: normal appearance, PERRL, EOMI - ENT ENT exam: normal exam, normal oropharynx, mucous membranes moist - Neck Neck exam: Present: normal inspection, full ROM, trachea midline - Chest Chest inspection: Present: normal inspection, symmetric chest wall rise - Respiratory Respiratory exam: Present: normal lung sounds bilaterally. Absent: respiratory distress - Cardiovascular Cardiovascular exam: Present: tachycardia, irregular rhythm, systolic murmur ( very faint murmur) - Abdominal Exam Abdominal exam: Present: soft, Non-Tender. Absent: tenderness, distention, guarding, rebound, rigidity - Extremities Exam Extremities exam: Present: normal inspection, full ROM, normal capillary refill. Absent: tenderness, pedal edema, calf tenderness - Neurological Exam Neurological exam: Present: alert, oriented X3 - Psychiatric Psychiatric exam: Present: normal affect, normal mood - Skin Skin exam: Present: warm, dry, intact, normal color Course Course Narrative: 56 male male presenting with A. fib with RVR. Extensive history of A. fib with multiple cardioversions. Seen by cardiology here. He is on antiarrhythmic anticoagulation and Cardizem. Will get CBC, BMP, troponin, coags, chest x-ray, EKG, Cardizem bolus, Cardizem drip and admit. Patient does report that he missed a dose of his Tikosyn this morning, so he took it at noon and was going to take it again at 11 PM, but decided to come in to be evaluated. - Reevaluation(s) Reevaluation #1: Labs within normal limits for patient's baseline, however, does have new onset renal insufficiency. Rate is coming down after starting Cardizem drip. We will admit for A. fib and new renal insufficiency. Patient is agreeable. chest pain-free. Symptoms improving. Vital Signs Temperature 98.5 F 12/18/16 22:56 Pulse Rate 148 12/18/16 22:56 Respiratory Rate 18 12/18/16 22:56 Blood Pressure 123/110 12/18/16 22:56 O2 Sat by Pulse Oximetry 97 12/18/16 22:56 Temperature 98.5 F 12/18/16 22:56 Pulse Rate 104 12/19/16 00:52 Respiratory Rate 16 12/19/16 00:52 Blood Pressure 104/81 12/19/16 00:52 O2 Sat by Pulse Oximetry 97 12/19/16 00:52 Oxygen Delivery Oxygen Delivery Room Air Arrhythmia/Palpitations - Medical Records Medical records reviewed: Yes I reviewed the patient's medical records. - Lab Data Lab results reviewed: Yes I reviewed the patient's lab results. Result diagrams: 12/18/16 23:14 12/18/16 23:14 Lab Results 12/18/16 12/18/16 12/18/16 Range/Units 23:14 23:14 23:14 WBC 22.2 H (4.3-11.1) K/mcL RBC 4.70 (4.19-5.50) M/mcL Hgb 13.6 (12.9-16.9) g/dL Hct 40.0 (37.5-50.1) % MCV 85.1 (83.0-100.0) fL MCH 28.9 (28.0-33.3) pg MCHC 34.0 (31.6-35.5) g/dL RDW 13.4 (11.5-14.5) % Plt Count 228 (140-400) K/mcL MPV 10.1 (9.4-12.4) fL Immature Gran % 0.3 (0-4) % Seg Neutrophils % 19.7 % Lymphocytes % 73.0 % Monocytes % 4.3 % Eosinophils % 2.2 % Basophils % 0.5 % Neutrophils # 4.4 (1.6-8.9) K/mcL Lymphocytes # 16.2 H (0.6-4.6) K/mcL Monocytes # 1.0 (0.0-1.3) K/mcL Eosinophils # 0.5 (0.0-0.6) K/mcL Basophils # 0.1 (0.0-0.2) K/mcL Smudge Cells Present A (Not Present) Platelet Estimate Normal (Normal) PT 17.6 H (9.4-12.1) Seconds INR 1.6 APTT 41.3 H (26.0-36.0) Seconds Sodium 140 (136-145) mEq/L Potassium 3.8 (3.5-4.5) mEq/L Chloride 108 (98-109) mEq/L Carbon Dioxide 25 (19-29) mEq/L BUN 13 (8-26) mg/dL Creatinine 1.35 H (0.72-1.25) mg/dL Est GFR ( Amer) > 60 (> 60) Est GFR (Non-Af Amer) 54 L (> 60) BUN/Creatinine Ratio 10 (6-26) Glucose 122 H (70-99) mg/dL Calculated Osmolality 291 (280-300) Calcium 8.9 (8.6-10.8) mg/dL Magnesium 2.2 (1.6-2.6) mg/dL Troponin I (0-0.03) ng/mL Urine Color (Yellow) Urine Clarity (Clear) Urine pH (5.0-8.0) pH Units Ur Specific [place] (1.010-1.025) Urine Protein (Neg-Trace) mg/dL Urine Glucose (UA) (Normal) mg/dL Urine Ketones (Negative) mg/dL Urine Blood (Negative) Urine Nitrite (Negative) Urine Bilirubin (Negative) Urine Urobilinogen (Normal) mg/dL Ur Leukocyte Esterase (Negative) Urine Microscopic RBC (0-3) per hpf Urine Microscopic WBC (0-3) per hpf Ur Squamous Epith Cells (None-Few) per lpf Urine Bacteria (None-Few) per hpf Hyaline Casts (None-Few) per lpf Ur Culture Indicated? (NO) 12/18/16 12/19/16 Range/Units 23:14 00:15 WBC (4.3-11.1) K/mcL RBC (4.19-5.50) M/mcL Hgb (12.9-16.9) g/dL Hct (37.5-50.1) % MCV (83.0-100.0) fL MCH (28.0-33.3) pg MCHC (31.6-35.5) g/dL RDW (11.5-14.5) % Plt Count (140-400) K/mcL MPV (9.4-12.4) fL Immature Gran % (0-4) % Seg Neutrophils % % Lymphocytes % % Monocytes % % Eosinophils % % Basophils % % Neutrophils # (1.6-8.9) K/mcL Lymphocytes # (0.6-4.6) K/mcL Monocytes # (0.0-1.3) K/mcL Eosinophils # (0.0-0.6) K/mcL Basophils # (0.0-0.2) K/mcL Smudge Cells (Not Present) Platelet Estimate (Normal) PT (9.4-12.1) Seconds INR APTT (26.0-36.0) Seconds Sodium (136-145) mEq/L Potassium (3.5-4.5) mEq/L Chloride (98-109) mEq/L Carbon Dioxide (19-29) mEq/L BUN (8-26) mg/dL Creatinine (0.72-1.25) mg/dL Est GFR ( Amer) (> 60) Est GFR (Non-Af Amer) (> 60) BUN/Creatinine Ratio (6-26) Glucose (70-99) mg/dL Calculated Osmolality (280-300) Calcium (8.6-10.8) mg/dL Magnesium (1.6-2.6) mg/dL Troponin I 0.00 (0-0.03) ng/mL Urine Color Yellow (Yellow) Urine Clarity Cloudy A (Clear) Urine pH 6.5 (5.0-8.0) pH Units Ur Specific [place] 1.019 (1.010-1.025) Urine Protein Negative (Neg-Trace) mg/dL Urine Glucose (UA) Normal (Normal) mg/dL Urine Ketones Negative (Negative) mg/dL Urine Blood Negative (Negative) Urine Nitrite Negative (Negative) Urine Bilirubin Negative (Negative) Urine Urobilinogen Normal (Normal) mg/dL Ur Leukocyte Esterase Negative (Negative) Urine Microscopic RBC 0-3 (0-3) per hpf Urine Microscopic WBC 0-3 (0-3) per hpf Ur Squamous Epith Cells Moderate H (None-Few) per lpf Urine Bacteria None Seen (None-Few) per hpf Hyaline Casts None Seen (None-Few) per lpf Ur Culture Indicated? NO (NO) - Radiology Data Radiology results reviewed: Yes I reviewed the patient's radiology results. - EKG Data EKG attestation: Yes I reviewed and interpreted this EKG. EKG results narrative: A. fib with RVR, rate 147, QTC 379, normal axis, nonspecific ST-T wave changes, no acute ischemic changes Critical Care Time Critical Care Time: Yes Total Critical Care Time: 45 Attestation: Critical care performed: Time is exclusive of separately billable procedures. Time includes: direct patient care, patient reassessment, coordination of patient care, interpretation of data (laboratory data, radiology data, and respiratory data), review of patient's medical records, medical consultation and documentation of patient care. Procedures included in critical care time: Procedures excluded from critical care time: S.B.A.Yelitza. - S.B.AFallon Situation: Demographics, MOA Background: Presenting Complaint, Relevant PMH, Meds, & Allergies Assessment: Vital Signs, Course and respsone to treatment, Exam Concerns, Patient/Family Expectation, Pertinant Lab Results, Outstanding Labs Recommendation: Recommendation based on pending studies, treatments, or consults S.B.A.RDeshaun Report Given to: Dr. Aaron Nguyen Repor Time: 00:59 Attestation Statement - Attestation Attestation: I, Dandy Evans MD, personally performed a history and physical exam of the patient and discussed their management with the resident. I reviewed the resident's note and agree with the documented findings, medical decision making , and plan of care. 56-year-old male presented to the emergency department with a complaint of atrial fibrillation with RVR which started about 9:30 this evening. He complains of palpitations with some mild shortness of breath and feels a little weak. No chest pain. He has had multiple recurrent episodes and been on multiple medications for his atrial fibrillation. He is currently on Xarelto. On arrival here the patient is in atrial fibrillation with RVR with a heart rate in the 130s to 140s. On examination patient is a well-developed obese male in no acute distress. He is alert and oriented 3. There is no cyanosis or diaphoresis. Chest is nontender to palpation. Breath sounds are clear and equal bilaterally. Heart is tachycardic and irregularly irregular. Abdomen soft and nontender with normal bowel sounds. EKG shows atrial fibrillation with RVR. The chest x-ray negative. Labs reviewed. The patient received a Cardizem bolus and placed on a Cardizem infusion. Heart rate improved but continues atrial fib with RVR. The hospitalist, Dr. Walker, was consulted and accepted admission of the patient.
[2016-12-18 23:21] LABS: Basophils # 0.1 K/mcL (0.0-0.2); Basophils % 0.5 %; Eosinophils # 0.5 K/mcL (0.0-0.6); Eosinophils % 2.2 %; Hemoglobin 13.6 g/dL (12.9-16.9); Immature Granulocytes % 0.3 % (0-4); Lymphocytes # 16.2 K/mcL (0.6-4.6); Mean Corpuscular Hemoglobin 28.9 pg (28.0-33.3); Mean Corpuscular Volume 85.1 fL (83.0-100.0); Mean Platelet Volume 10.1 fL (9.4-12.4); Monocytes % 4.3 %; Neutrophils # 4.4 K/mcL (1.6-8.9); Platelet Count 228 K/mcL (140-400); Red Cell Distribution Width 13.4 % (11.5-14.5); Segmented Neutrophils % 19.7 %
[2016-12-18 23:26] LABS: INR 1.6; Prothrombin Time 17.6 Seconds (9.4-12.1)
[2016-12-18 23:29] LABS: Activated Partial Thrombo Time 41.3 Seconds (26.0-36.0)
[2016-12-18 23:34] LABS: BUN/Creatinine Ratio 10 (6-26); Blood Urea Nitrogen 13 mg/dL (8-26); Calcium 8.9 mg/dL (8.6-10.8); Carbon Dioxide 25 mEq/L (19-29); Chloride 108 mEq/L (98-109); Glucose 122 mg/dL (70-99); Magnesium 2.2 mg/dL (1.6-2.6); Osmolality,Calculated 291 (280-300); Potassium 3.8 mEq/L (3.5-4.5); Sodium 140 mEq/L (136-145); eGFR For African Americans > 60 (> 60); eGFR For Non-African Americans 54 (> 60)
[2016-12-18] MEDS ORDERED: 0.9 % Sodium Chloride 500 ML ONE (23:35)
[2016-12-19 00:18] LABS: Platelet Estimate Normal (Normal); Smudge Cells Present (Not Present)
[2016-12-19 00:43] LABS: Bilirubin,Urine Negative (Negative); Blood,Urine Negative (Negative); Clarity,Urine Cloudy (Clear); Color,Urine Yellow (Yellow); Glucose,Urine (UA) Normal (Normal); Ketones,Urine Negative (Negative); Leukocyte Esterase,Urine Negative (Negative); Nitrite,Urine Negative (Negative); PH,Urine 6.5 pH Units (5.0-8.0); Protein,Urine Negative (Neg-Trace); Specific Gravity,Urine 1.019 (1.010-1.025); Urobilinogen,Urine Normal (Normal)
[2016-12-19 00:45] LABS: Bacteria,Urine None Seen per hpf (None-Few); Hyaline Casts,Urine None Seen per lpf (None-Few); RBC,Urine 0-3 per hpf (0-3); Squamous Epithelial Cell,Urine Moderate per lpf (None-Few); WBC,Urine 0-3 per hpf (0-3)
[2016-12-19] MEDS ORDERED: Naloxone 0.4 MG/ML INJ IVP PRN (01:31)
--- NOTE | 2016-12-19 02:11 | Internal Med History&Physical ---
Date of Encounter: 12/19/16 Time of Encounter: 01:50 Assessment and Plan (1) Atrial fibrillation with RVR Current visit: Yes Status: Acute patient has a history of paroxysmal AFIB for which he has had 3 prior cardioversions, he was started on Tikosyn in June last year wIth good results and has already been planned for atrial ablation consideration, he has an appt with his welt sole layer Dr Blount on 01/02/17 for discussion concerning the procedure, he was here about 2 weeks ago with same condition but spontaneously converted ths avoiding a cardioversion, he is already on systemic anticoagulation, we will consult cardiology for consideration of cardioversion as patient is unable to tolerate his symptoms when in RVR (2) ANTON (acute kidney injury) Current visit: Yes Status: Acute his creatinine is almost twice his baseline, this could be related to his medications vs dehydration, we will avoid nephrotoxins, encourage oral intake of fluids, renallly dose all medications and follow BMP (3) Chronic lymphocytic leukemia Current visit: Yes Status: Chronic we will defer to outpatient management with oncologist (4) COPD (chronic obstructive pulmonary disease) Current visit: Yes Status: Chronic not in exacerbation, we will do PRN nebs Qualifiers: COPD type: chronic bronchitis Chronic bronchitis type: simple Qualified Code(s): J41.0 - Simple chronic bronchitis (5) Obesity (BMI 30-39.9) Current visit: Yes Status: Chronic will need diet education (6) Obstructive sleep apnea Current visit: Yes Status: Chronic he uses CPAP at night, reports compliance, Internal Medicine - H&P: HPI Chief complaint: heart racing Admitted From: Emergency Dept Plans for Post Hospital Care: Home History of present illness: Mr. Smith is a 56 year old male patient with a history of paroxysmal AFIB on systemic anticoagulation and an antiarrhythmic comes in with sensation of heart racing. He reports that he missed his morning dose of Tikosyn on 12/18/16 and remembered to take it in the afternoon. In the evening at around 9:30pm whilst he was preparing to go to bed he had sudden onset sensation of heart racing, this was associated with shortness of breath, easy fatigability when he moved around his room. He also had diaphoresis, lightheadedness and dyspnea on exertion. He quickly popped the evening dose of his Tikosyn into his mouth but his symptoms persisted so he called EMS and was brought to the ER of [place]. Of note he had AFIB RVR about 2 weeks ago and was seen here but he spontaneously converted. He was started on Tikosyn in June last year with good response until recently. In the ER of [place] his EKG reported AFIB with RVR of 147, so he was started on cardizem drip and is being admitted for cardiology consideration of cardioversion, he has had 3 prior cardioversions so far and about 7 admissions for AFIB RVRV. Past Med Surg Social Fam HX - Past Medical History Medical history: arthritis, atrial fibrillation, cancer, cardiomyopathy, COPD, coronary artery disease, GERD, hyperlipidemia, other (VIDA on CPAP, leukemia) Psychiatric history: no psych history - Past Surgical History Surgical History: herniorrhaphy, orthopedic, other, other - Social History Smoking Status: Former smoker Smokeless Tobacco Status: No Alcohol use: none Drug use: none - Family History Brother Living Status: Still Living Hx Family Cardiac Disorders: No Hx Family Respiratory Disorders: No Hx Family Cancer: Yes (CLL) Hx Family GI Disorders: No Hx Family Genitourinary Disorders: No Hx Family Endocrine Disorder: No Hx Family Musculoskeletal Disorders: No Hx Family Neuromuscular Disorders: No Hx Family Neurologic Disorders: No Hx Family HEENT Disorders: No Hx Family Autoimmune Disorders: No Hx Family Reproductive Disorders: No Hx Family Psychosocial Disorders: No Hx Family Medical Disorders: No Mother Family Member Ethnicity: Non- Living Status: Hx Family Cardiac Disorders: Yes (CABG, AFIB) Hx Family Respiratory Disorders: Yes (COPD) Hx Family Cancer: No Hx Family GI Disorders: No Hx Family Genitourinary Disorders: No Hx Family Endocrine Disorder: Yes (renal diease) Hx Family Musculoskeletal Disorders: No Hx Family Neuromuscular Disorders: No Hx Family Neurologic Disorders: No Hx Family HEENT Disorders: No Hx Family Autoimmune Disorders: No Hx Family Reproductive Disorders: No Hx Family Psychosocial Disorders: No Hx Family Medical Disorders: No Father Family Member Ethnicity: Non- Living Status: Still Living Hx Family Cardiac Disorders: Yes (bad valve, aneysum heart stents, [place]) Hx Family Respiratory Disorders: No Hx Family Cancer: No Hx Family GI Disorders: No Hx Family Genitourinary Disorders: No Hx Family Endocrine Disorder: No Hx Family Musculoskeletal Disorders: No Hx Family Neuromuscular Disorders: No Hx Family Neurologic Disorders: No Hx Family HEENT Disorders: No Hx Family Autoimmune Disorders: No Hx Family Reproductive Disorders: No Hx Family Psychosocial Disorders: No Hx Family Medical Disorders: No Internal Medicine - H&P: Meds Tamsulosin [Flomax] 0.4 mg PO DAILY 04/13/16 [History] Rivaroxaban [Xarelto] 20 mg PO DAILY 06/10/16 [History] Metoprolol [Lopressor] 25 mg PO BID 07/01/16 [History] Dofetilide [Tikosyn] 0.5 mg PO Q12H capsule 07/05/16 [Rx] Diltiazem CD (24hr) [Cardizem CD] 120 mg PO DAILY #120 cap.er.24h 12/09/16 [Rx] Allergies No Known Allergies Allergy (Verified 12/18/16 22:58) All Systems PM: A 10-system review of systems was performed and is negative for pertinent findings except as documented above in the HPI. - Constitutional Vitals: Temp Pulse Resp BP Pulse Ox 97.5 F L 112 18 117/89 97 12/19/16 01:32 12/19/16 01:32 12/19/16 01:32 12/19/16 01:32 12/19/16 01:32 - General General appearance: Adult male, sitting up in bed with no sign of distress, alert, - Head Head exam: atraumatic, normocephalic, normal inspection - Eye Eye exam: normal appearance, PERRL, EOMI, anicteric sclera, normal conjunctiva - ENT ENT exam: normal exam, normal oropharynx, mucous membranes moist - Neck Neck exam: Present: normal inspection, full ROM, trachea midline - Chest Chest inspection: Present: normal inspection, symmetric chest wall rise - Respiratory Respiratory exam: Present: normal lung sounds bilaterally. Absent: respiratory distress - Cardiovascular Cardiovascular exam: Present: tachycardia, irregularly irregular rhythm, systolic murmur (very faint murmur), no ankle edema - Abdominal Exam Abdominal exam: Present: soft, Non-Tender. Absent: tenderness, distention, guarding, rebound, rigidity - Extremities Exam Extremities exam: Present: normal inspection, full ROM, normal capillary refill. Absent: tenderness, pedal edema, calf tenderness - Neurological Exam Neurological exam: Present: alert, oriented X3, CN 2-12 grossly intact with no gross motor or sensory deficits - Psychiatric Psychiatric exam: Present: normal affect, normal mood - Skin Skin exam: Present: warm, dry, intact, normal color Internal Med - H&P Results - Labs CBC & Chem 7: 12/18/16 23:14 12/18/16 23:14 - EKG Data -: EKG Interpreted by Myself (AFIB with RVR of 147) - Diagnostic Studies Chest x-ray Status: image reviewed by me
[2016-12-19 05:44] LABS: BUN/Creatinine Ratio 14 (6-26); Blood Urea Nitrogen 14 mg/dL (8-26); Calcium 8.6 mg/dL (8.6-10.8); Carbon Dioxide 24 mEq/L (19-29); Chloride 108 mEq/L (98-109); Glucose 117 mg/dL (70-99); Magnesium 1.9 mg/dL (1.6-2.6); Osmolality,Calculated 292 (280-300); Phosphorous 3.4 mg/dL (2.3-4.7); Potassium 3.9 mEq/L (3.5-4.5); Sodium 140 mEq/L (136-145); eGFR For African Americans > 60 (> 60); eGFR For Non-African Americans > 60 (> 60)
--- NOTE | 2016-12-19 08:36 | Cardiology Consult Note ---
Date of Encounter: 12/19/16 Time of Encounter: 09:00 Assessment and Plan (1) ANTON (acute kidney injury) Current Visit: Yes Status: Acute Per Cardiology: Presented with mild ANTON with creat 1.35 and GFR 54, no hx of CKD. Patient reports he did not drink much fluids yesterday upon review Improved. (2) Atrial fibrillation with RVR Current Visit: Yes Status: Acute Per Cardiology: Known history of paroxysmal atrial fibrillation with current medical regimen of Tikosyn 0.5 mg by mouth every 12 hours and Cardizem CD 120 mg by mouth daily. Remains A. fib with RVR 90s to 100s currently. On IV Cardizem drip. Discussed and reviewed to Dr. Lim, will attempt to wean off IV Cardizem drip, will give cardizem 60mg x 1, increase cardizem CD 180mg PO daily, plans for DC Cardioversion today around 1pm, and continue with current Tikosyn regimen-- dose may need adjusted if kidney function continues to fluctuate. 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 Left heart catheterization from February 2016 showed mild nonobstructive CAD. (3) Chronic lymphocytic leukemia Current Visit: Yes Status: Chronic Per Cardiology: Has CLL, follows as outpatient. Discussion w patient/family: The assessment and plan as outlined above was discussed with the patient and/or family members who expressed understanding and agreement. All questions were answered. Thank you for involving us in the care of your patient. Please call with any questions. History of Present Illness Consult date: 12/19/16 Requesting physician: Rick Walker Consult reason: Afib Chief complaint: Afib, Palps History of present illness: Mr. Smith is a 56 year old male with a relevant past medical history of obstructive sleep apnea with CPAP compliance, CLL, atrial fibrillation with history of multiple cardioversions and failed antiarrhythmic therapy currently on Tikosyn and Xarelto for anticoagulation, history of nonischemic cardiopathy. Patient well known to cardiology. Patient reports compliance with medications other than yesterday morning he did take his Tikosyn morning dose a few hours late. He denies any change in his medical condition with no recent fever, chills, cough or infectious process. Reports yesterday evening awakened with palpitations and racing heart rate. Past Med Surg Social Fam HX - Past Medical History Attestation: Yes The following information was validated with the patient. Source: patient, old records reviewed, obtained from family Medical history: arthritis, atrial fibrillation, cancer, cardiomyopathy, COPD, coronary artery disease, GERD, hyperlipidemia, other (VIDA on CPAP, leukemia) Psychiatric history: no psych history - Past Surgical History Surgical History: herniorrhaphy, orthopedic, other, other - Social History Smoking Status: Former smoker Smokeless Tobacco Status: No Alcohol use: none Drug use: none - Family History Brother Living Status: Still Living Hx Family Cardiac Disorders: No Hx Family Respiratory Disorders: No Hx Family Cancer: Yes (CLL) Hx Family GI Disorders: No Hx Family Genitourinary Disorders: No Hx Family Endocrine Disorder: No Hx Family Musculoskeletal Disorders: No Hx Family Neuromuscular Disorders: No Hx Family Neurologic Disorders: No Hx Family HEENT Disorders: No Hx Family Autoimmune Disorders: No Hx Family Reproductive Disorders: No Hx Family Psychosocial Disorders: No Hx Family Medical Disorders: No Mother Family Member Ethnicity: Non- Living Status: Hx Family Cardiac Disorders: Yes (CABG, AFIB) Hx Family Respiratory Disorders: Yes (COPD) Hx Family Cancer: No Hx Family GI Disorders: No Hx Family Genitourinary Disorders: No Hx Family Endocrine Disorder: Yes (renal diease) Hx Family Musculoskeletal Disorders: No Hx Family Neuromuscular Disorders: No Hx Family Neurologic Disorders: No Hx Family HEENT Disorders: No Hx Family Autoimmune Disorders: No Hx Family Reproductive Disorders: No Hx Family Psychosocial Disorders: No Hx Family Medical Disorders: No Father Family Member Ethnicity: Non- Living Status: Still Living Hx Family Cardiac Disorders: Yes (bad valve, aneysum heart stents, [place]) Hx Family Respiratory Disorders: No Hx Family Cancer: No Hx Family GI Disorders: No Hx Family Genitourinary Disorders: No Hx Family Endocrine Disorder: No Hx Family Musculoskeletal Disorders: No Hx Family Neuromuscular Disorders: No Hx Family Neurologic Disorders: No Hx Family HEENT Disorders: No Hx Family Autoimmune Disorders: No Hx Family Reproductive Disorders: No Hx Family Psychosocial Disorders: No Hx Family Medical Disorders: No Medications and Allergies Tamsulosin [Flomax] 0.4 mg PO DAILY 04/13/16 [History] Rivaroxaban [Xarelto] 20 mg PO DAILY 06/10/16 [History] Metoprolol [Lopressor] 25 mg PO BID 07/01/16 [History] Dofetilide [Tikosyn] 0.5 mg PO Q12H capsule 07/05/16 [Rx] Diltiazem CD (24hr) [Cardizem CD] 120 mg PO DAILY #120 cap.er.24h 12/09/16 [Rx] Allergies No Known Allergies Allergy (Verified 12/18/16 22:58) All Systems Review: A 10-system review of systems was performed and is negative for pertinent findings except as documented above in the HPI. - Cardiovascular Cardiovascular: as per HPI, palpitations, rapid heart rate Physical Examination Vital Signs, Last 4 Hours Temp Pulse Resp BP Pulse Ox 12/19/16 07:00 97.5 F L 68 15 116/99 98 12/19/16 05:04 97.7 F 86 15 126/87 97 General: Conversant, No Apparent Distress HEENT: Atraumatic, Normocephaly, Mucus Membranes Moist Cardiac: No Murmur, Other (Irregularly irregular) Lungs: Normal Breath Sounds, No Wheeze, Rales, Rhonchi Neuro: Alert and responsive, No focal deficits noted Abdomen: Non-Tender Skin: No rashes noted on visualized skin Musculoskeletal: No Chest Wall Tenderness Extremities: No Edema, Normal Pulses Results 12/18/16 23:14 12/19/16 04:32 Lab Results Laboratory Tests 12/09/16 12/18/16 12/18/16 00:46 23:14 23:14 WBC 22.2 H INR 1.6 Creatinine 0.86 Est GFR (Non-Af Amer) > 60 Magnesium Troponin I 12/18/16 12/18/16 12/19/16 23:14 23:14 04:32 WBC INR Creatinine 1.35 H 0.97 Est GFR (Non-Af Amer) 54 L > 60 Magnesium 2.2 1.9 Troponin I 0.00 12/19/16 04:32 WBC INR Creatinine Est GFR (Non-Af Amer) Magnesium Troponin I 0.00 ITS Impressions Chest X-Ray 12/18/16 23:00 IMPRESSION: No acute cardiopulmonary process. D/ / Ritu Maldonado MD / Ritu Maldonado MD Interpreting Provider: Ritu Maldonado MD Active Medications Diltiazem HCl (Cardizem Cd) 120 mg PO DAILY [facility] Stop: 06/20/17 09:01 Dofetilide (Tikosyn) 0.5 mg PO Q12H SHIREEN PRN Reason: Protocol Stop: 06/20/17 09:01 Diltiazem HCl 125 mg/ Dextrose 125 mls @ 0 mls/hr IVC .Q0M SHIREEN PRN Reason: Per Protocol Stop: 06/20/17 04:16 Naloxone HCl (Narcan) 0.4 mg IVP Q2MIN PRN PRN Reason: Opioid Reversal Stop: 06/20/17 01:32 Rivaroxaban (Xarelto) 20 mg PO DAILY [facility] Stop: 06/20/17 09:01 Tamsulosin HCl (Flomax) 0.4 mg PO DAILY SHIREEN PRN Reason: Protocol Stop: 06/20/17 09:01 - Imaging and Cardiology Chest Xray: report reviewed - EKG Interpretation EKG results cardiology: personally reviewed (atrial fibrillation with RVR in the 140s), other (24 hour telemetry reviewed with average heart rate 96, atrial fibrillation, episodes of nonsustained VT with longest being 4 beats) Consult Discharge Plan - Plan Referrals: Becky Davis MD [Primary Care Provider] -
[2016-12-19] MEDS ORDERED: Diltiazem CD (24hr) 120 MG CAPSULE PO SCH (09:00)
--- NOTE | 2016-12-19 09:30 | Internal Med Progress Note ---
<Shereen Tang - Last Filed: 12/19/16 15:47> Date of Encounter: 12/19/16 Time of Encounter: 09:00 - Assessment and plan (1) Atrial fibrillation with RVR Current Visit: Yes Status: Acute Assessment and plan: Documented pAF with multiple prior cardioversions. Has been on cardizem, tikosyn therapy. Xarelto for A/C. He was scheduled to have ablation therapy to be done as outpatient. He reports compliance with medication regimen. Currently on cardizem gtt, hemodynamically stable. Patient would undergo DC Cardioversion in the afternoon, resulting EKG disclosing junctional rhythm 50's. Update by Cardiology team, to lower cardizem PO dose and monitor overnight. Patient is agreeable. (2) ANTON (acute kidney injury) Current Visit: Yes Status: Acute Assessment and plan: Likely 2* Afib per above, improved to baseline, from 1.38 to 1. (3) Chronic lymphocytic leukemia Current Visit: Yes Status: Chronic Assessment and plan: With baseline leukocytosis 20,000. Denies any infectious prodrome. Cont to monitor. (4) Obstructive sleep apnea Current Visit: Yes Status: Chronic Assessment and plan: Cont CPAP QHS - Subjective Interval history: Pt seen/eval, briefly history of pAF, was on tikosyn, cardizem for rate/rhythm control, Xarelto for A/C. History CLL, with leukocytosis 20,[address] Nieto. He affirms events prompting hospitalization, spouse at bedside. Episode of AF last night with sensation of palpitations, flushing. No visual changes/lightheadedness. Denies fever, chills, dyspnea, sick contacts. Remote night sweats over 1 year ago, none recently. - Constitutional Vitals: Temp Pulse Resp BP Pulse Ox 97.5 F L 68 15 116/99 98 12/19/16 07:00 12/19/16 07:00 12/19/16 07:00 12/19/16 07:00 12/19/16 07:00 General appearance: Present: A&O X 3, obese, answers questions appropriately - Head Head exam: Present: atraumatic, normocephalic - Eye Eye exam: Present: EOMI, sclera anicteric - ENT ENT exam: Present: mucous membranes moist - Neck Neck exam general surgery: Present: supple, trachea midline - Respiratory Respiratory exam: Absent: rhonchi, tachypnea - Cardiovascular Cardiovascular exam: Present: irregular rhythm (c/w AF), +S1, +S2 - GI/Abdominal GI/Abdominal exam: Present: soft, no peritoneal signs. Absent: tenderness - Extremities Exam Extremities exam: Present: warm, radial pulses palpable and symetrical. Absent : pedal edema Internal Medicine: Result - Labs CBC & Chem 7: 12/18/16 23:14 12/19/16 04:32 Labs: BMP 12/19/16 04:32 Sodium 140 Potassium 3.9 Chloride 108 Carbon Dioxide 24 BUN 14 Creatinine 0.97 Glucose 117 H Calcium 8.6 Cardiac Enzymes 12/19/16 Range/Units 04:32 Troponin I 0.00 (0-0.03) ng/mL - ABG Interpretation ABG results: PT/INR, D-dimer PT 17.6 Seconds (9.4-12.1) H 12/18/16 23:14 Consult Discharge Plan - Plan Referrals: Becky Davsi MD [Primary Care Provider] - <Geo Clayton - Last Filed: 12/19/16 19:37> Date of Encounter: 12/19/16 - Assessment and plan (1) Paroxysmal atrial fibrillation Current Visit: Yes Status: Acute (2) COPD (chronic obstructive pulmonary disease) Current Visit: Yes Status: Chronic Qualifiers: COPD type: chronic bronchitis Chronic bronchitis type: simple Qualified Code(s): J41.0 - Simple chronic bronchitis (3) Chronic lymphocytic leukemia Current Visit: Yes Status: Chronic (4) Obstructive sleep apnea Current Visit: Yes Status: Chronic - Constitutional Vitals: Temp Pulse Resp BP Pulse Ox 97.5 F L 76 20 102/85 98 12/19/16 07:00 12/19/16 15:25 12/19/16 15:25 12/19/16 15:25 12/19/16 07:00 Internal Medicine: Result - Labs CBC & Chem 7: 12/18/16 23:14 12/19/16 04:32 Labs: BMP 12/19/16 04:32 Sodium 140 Potassium 3.9 Chloride 108 Carbon Dioxide 24 BUN 14 Creatinine 0.97 Glucose 117 H Calcium 8.6 Cardiac Enzymes 12/19/16 Range/Units 04:32 Troponin I 0.00 (0-0.03) ng/mL - ABG Interpretation ABG results: PT/INR, D-dimer PT 17.6 Seconds (9.4-12.1) H 12/18/16 23:14 - Attending Attestation I examined this patient and my medical decision-making was reviewed with the Resident Physician on 12/19/16. I agree with the documented findings, disposition and treatment plan as described except to the extent set forth below. Mr. Smith is currently admitted for parox a fib. He is moderate to high risk due to potential for worsening cardiac status. Mr. Smith is awaiting cardioversion. He has no other acute issues or complaints. Exam Alert Comfortable Heart irreg Lungs clear I/P 1. Parox a fib Further diagnoses and plan as above.
[2016-12-19] MEDS: *HR* Rivaroxaban 10 MG TABLET PO SCH (11:01)
--- NOTE | 2016-12-19 11:42 | Electrocardiograph Report ---
[place] [address] Test Date: 2016-12-18 Pat Name: Masood Smith Department: 104 Room: 2N6 Gender: M Driver/Guide: [facility] : 1960 Requested By: Tee Mercado Order Number: [id number] Reading MD: Maksim Lim MD Measurements Intervals [place] Rate: 147 P: ME: 0 QRS: 22 QRSD: 98 T: -7 QT: 295 QTc: 379 Interpretive Statements ATRIAL FIBRILLATION WITH RAPID VENTRICULAR RESPONSE Electronically Signed On 12-19-2016 11:41:01 EDT by Maksim Lim MD
[2016-12-19] MEDS ORDERED: *HR* FentaNYL (PF) 100 MCG/2 ML VIAL ONE (14:31)
[2016-12-19] MEDS ORDERED: 0.9 % Sodium Chloride 1,000 ML ONE (15:21)
[2016-12-19] MEDS: *HR* Midazolam HCl 2 MG/2 ML VIAL ONE ×2 (15:27→15:30)
[2016-12-19] MEDS ORDERED: 0.9 % Sodium Chloride 1,000 ML IVC SCH (15:30)
--- NOTE | 2016-12-19 15:53 | Event Note ---
Date of Encounter: 12/19/16 Time of Encounter: 15:30 - Cardiology Event Note Status post synchronized DC cardioversion at [address] Lim at bedside with conversion to junctional rhythm in the 50's. Cardizem drip now off. Discussed with Dr. Lim with recommendations to discontinue long-acting Cardizem and converted to Cardizem 30 mg every 6 hours. Continue Tikosyn. Recommend patient to remain inpatient overnight for monitoring. Cardiology will continue to follow. Patient and agreeable to plan. Primary service notified.
--- NOTE | 2016-12-19 16:58 | Pre-Sedation Evaluation ---
Pre-sedation evaluation - Pre-sedation checklist Date of procedure: 12/19/16 Procedure: Cardioversion Recent Vitals: Last Vital Signs Temp 97.5 F L 12/19/16 07:00 Pulse 76 12/19/16 15:25 Resp 20 12/19/16 15:25 BP 102/85 12/19/16 15:25 Pulse Ox 98 12/19/16 07:00 H&P (including ROS) documented in medical record: Yes Previous reaction to sedatives/anesthetics: No Dietary Status: NPO after Midnight Dentition: No loose teeth or bridges ASA Classification *see protocol: CLASS II-Mild systemic disease Plan of Care: Pt appropriate candidate for procedure/moderate/conscious sedation , Risks/benefits of procedure/sedation discussed w/ patient/family
--- NOTE | 2016-12-19 17:01 | Procedure Note ---
Date of procedure: 12/19/16 Pre-op diagnosis: af Post-op diagnosis: same Procedure: Elective cardioversion for atrial fibrillation. Patient conscious sedation with 4mg versed 100mcg fentanyl. Pads placed in the AP position. 200 J of synchronized energy was successful in cardioverting him from AF to junctional rhythm of HR high 50s with normal BP. Anesthesia: IV sedation Surgeon: Maksim Lim Estimated blood loss (cc): 0 Pathology: none sent Condition: stable Disposition: no change
[2016-12-20 07:26] VITALS: BP 115/76
--- NOTE | 2016-12-20 08:47 | Discharge Summary ---
<Letty Cornejo - Last Filed: 12/20/16 09:47> Date of Encounter: 12/20/16 Time of Encounter: 09:47 - Discharge Diagnosis (1) Atrial fibrillation with RVR Priority: Primary Status: Resolved (2) ANTON (acute kidney injury) Priority: Primary Status: Resolved (3) Chronic lymphocytic leukemia Priority: Secondary Status: Chronic (4) Obstructive sleep apnea Priority: Secondary Status: Chronic - Discharge Medications Prescriptions: Diltiazem [Cardizem] 30 mg PO Q6HR #120 tablet Diltiazem CD (24hr) [Cardizem CD] 180 mg PO DAILY #30 cap.er.24h Home Medications: Tamsulosin [Flomax] 0.4 mg PO DAILY 04/13/16 [History] Rivaroxaban [Xarelto] 20 mg PO DAILY 06/10/16 [History] Metoprolol [Lopressor] 25 mg PO BID 07/01/16 [History] Dofetilide [Tikosyn] 0.5 mg PO Q12H capsule 07/05/16 [Rx] Diltiazem CD (24hr) [Cardizem CD] 180 mg PO DAILY #30 cap.er.24h 12/20/16 [Rx] Diltiazem [Cardizem] 30 mg PO Q6HR #120 tablet 12/20/16 [Rx] Allergies/Adverse Reactions: Allergies No Known Allergies Allergy (Verified 12/18/16 22:58) Procedures/tests Complete & Pending: Procedures Performed prior 72 hours Category Date Time Status EV cardioversion Routine Y 12/19/16 11:21 Completed Date of admission: 12/19/16 01:31 Primary care physician: Becky Kuar Consults: 12/19/16 02:12 Consult to Cardiology [CONS] Routine Comment: Consulting Provider: Cardiology Abigail Reason for Consult: pls assist in managing this pt with AFIB RVR for cardioversion consideration, he is well known to Dr Blount and Lisbeth,thanks Call Completed: No Discharging clinician: Letty Cornejo Anticipated date of discharge: 12/20/16 - Patient Status Disposition: Home, Self-Care Condition: Good Functional capacity at discharge: independent ambulation Overall status at discharge: patient is back to baseline - Discharge Instructions Instructions: Diltiazem (By mouth), Atrial Fibrillation (DC), Sleep Apnea Syndrome (DC), Sleep Apnea Syndrome (GEN), Acute Kidney Injury (DC), Acute Kidney Injury (GEN), Chronic Obstructive Pulmonary Disease (DC), Sleep Apnea Syndrome, Glove Cutter (GEN), Acute Kidney Injury, Glove Cutter (GEN) Follow Up With: Becky Davis MD [Primary Care Provider] - (Appt has been requested. Please make sure follow up is within 7-10days of discharge. ) Carlos Bob DO [Partnered Physician] - (THE OFFICE WILL CALL YOU WITH THE TIME AND DATE FOR YOUR APPOINTMENT) Forms: Work/School Release - Diet and Activity Diet: low fat, low cholesterol Interval History: Patient seen and examined. Denies chest pain, shortness of breath, nausea. Ready for discharge. Hospital course: Mr. Smith is a 56 year old male with past medical history of recurrent A. fib RVR. He has previously had 3 prior cardioversions and 7 admissions for A. fib RVR. He missed his morning dose of Tikosyn on 12/18 remember to take it in the afternoon. At around 9:30 PM he had sudden onset of heart racing associated with shortness of breath, easy fatigability, diaphoresis, lightheadedness, and dyspnea on exertion. He took his evening dose of Tikosyn but his symptoms persisted so he came to the ER and was subsequently admitted for A. fib RVR. Patient was started on a Cardizem drip in the ER this was converted to oral Cardizem and then discontinued prior to cardioversion. The patient was cardioverted and status post cardioversion was in a junctional rhythm with a heart rate in the 50s. The patient remained inpatient overnight to allow his heart to come into normal sinus rhythm. On the day of discharge his heart is in normal sinus rhythm with heart rate in low 60s. He denies chest pain, palpitations, shortness of breath, nausea. He is agreeable to the discharge plan. - Time Spent with Patient Total time spent providing and/or coordinating discharge services: - Constitutional Vitals: Temp Pulse Resp BP Pulse Ox 97.8 F 64 14 115/76 97 12/20/16 07:21 12/20/16 07:21 12/20/16 07:21 12/20/16 07:21 12/20/16 04:07 General appearance: Present: A&O X 3, obese, answers questions appropriately - Head Head exam: Present: atraumatic, normocephalic - Eye Eye exam: Present: PERRL, conjuntiva pink, sclera anicteric Pupils: Present: PERRL - Neck Neck exam general surgery: Present: supple - Respiratory Respiratory exam: Present: CTAB. Absent: accessory muscle use, rales, rhonchi, wheezes - Cardiovascular Cardiovascular exam: Present: RRR, +S1, +S2. Absent: diastolic murmur, gallop, rubs, systolic murmur - GI/Abdominal GI/Abdominal exam: Present: normal bowel sounds, soft, no peritoneal signs. Absent: distended, tenderness - Extremities Exam Extremities exam: Present: warm. Absent: calf tenderness, cyanotic, pedal edema - Neurological Exam Neurological exam: Present: CN II-XII intact, oriented X3, no focal deficits. Absent: pronater drift, facial droop, speech deficit - Skin Skin exam: Present: dry, intact <Geo Clayton - Last Filed: 12/20/16 16:54> Date of Encounter: 12/20/16 - Discharge Diagnosis (1) Paroxysmal atrial fibrillation Priority: Primary Status: Acute (2) COPD (chronic obstructive pulmonary disease) Priority: Secondary Status: Chronic Qualifiers: COPD type: chronic bronchitis Chronic bronchitis type: simple Qualified Code(s): J41.0 - Simple chronic bronchitis (3) Chronic lymphocytic leukemia Status: Chronic (4) Obstructive sleep apnea Status: Chronic Procedures/tests Complete & Pending: Procedures Performed prior 72 hours Category Date Time Status EV cardioversion Routine Y 12/19/16 11:21 Completed Date of admission: 12/19/16 01:31 Primary care physician: Becky Pantoja[facility] Consults: 12/19/16 02:12 Consult to Cardiology [CONS] Routine Comment: Consulting Provider: Cardiology Abigail Reason for Consult: pls assist in managing this pt with AFIB RVR for cardioversion consideration, he is well known to Dr Blount and Lisbeth,thanks Call Completed: No Hospital course: Mr. Smith is a 56 year old male - Time Spent with Patient Total time spent providing and/or coordinating discharge services: 22min - Constitutional Vitals: Temp Pulse Resp BP Pulse Ox 97.8 F 64 14 115/76 97 04/15/17 07:21 12/20/16 07:21 12/20/16 07:21 12/20/16 07:21 12/20/16 09:20 - Attending Attestation I examined this patient and my medical decision-making was reviewed with the Resident Physician on 12/20/16. I agree with the documented findings, disposition and treatment plan as described except to the extent set forth below. Mr. Smith feels OK today. He is in normal sinus rhythm at this time. Vitals are stable and he is afebrile. He is ready for discharge. Exam Alert. Comfortable Heart reg No wheeze Plan D/C today Return to work Thursday.
[2016-12-20] MEDS ORDERED: Diltiazem CD (24hr) 180 MG CAPSULE PO SCH ×2 (09:00→10:15)
[2016-12-20] MEDS: *HR* Rivaroxaban 10 MG TABLET PO SCH (09:17)
--- NOTE | 2016-12-20 10:08 | Event Note ---
Date of Encounter: 12/20/16 Time of Encounter: 10:06 - Cardiology Event Note S/P DCCV yesterday, was initially junctional with HR 50s, now SR, HR 60s. No acute complaints this AM. 12 hour tele AVG HR 63, SR, no evidence of A-Fib. ANTON resolved. Transition to long acting Cardizem 180mg daily. Continue Tikosyn. Pst DCCV EKG QRS 90, QT/QTc 465/461ms. Anticoagulated on Xarelto. Cardiology signing off. Pt already being discharged. Follow-up as outpt this week.
--- NOTE | 2016-12-20 10:17 | ECHO - Doppler Report ---
Cardioversion Name: Masood Smith Date of Study: 12/19/2016 Date: 1960 Ht: 60.0in Medical Record#: [id number] Age: 56 Wt: 252.0lb Gender: Male BSA: 2.06 Order #: [id number] Location: [facility] Room #: 2NE26 Reading Physician: Maksim Lim MD, [facility] Trailhead Maintenance Worker: Ordering Physician: Bernardo Murray CNP Primary Physician: Becky Davis MD Indications: Arrhythmia Impression: Uncomplicated cardioversion Plan: Continue chronic anticoagulation and referral to EP for further evaluation of ablation Medication Given: Time Medication Dose Units Route Medication per floor RN Following informed consent , the patient was sedated with . After adequate sedation was achieved, cardioversion in the AP approach was using 200 Joules of biphasic energy. Normal sinus rhythm was restored after 1 attempt(s). The patient was monitored for the standard 30 minutes post procedure. History: Years 40 Packs 1 Family History of CAD Previous Echo12/09/2016 BP 111 / 78 Updated by Maksim Lim MD, [facility] on 12/20/2016 10:12:06 AM electronically signed on 12/20/2016 10:12:52 AM with status of [employer] Alanis: 1=Normal, 2=Hypokinesis, 3=Akinesis, 4=Dyskinesis, 5=Aneurysmal, 6=Hyperkinetic, X=Not Visualized (Blank)=Missing
--- NOTE | 2016-12-22 19:45 | Electrocardiograph Report ---
[address] [place], [place] [address] Test Date: 2016-12-19 Pat Name: Masood Smith Department: 111 Room: 2N6 Gender: M [employer]: : 1960 Requested By: Geo Clayton Order Number: [id number] Reading MD: Maksim Lim MD Measurements Intervals [place] Rate: 58 P: NM: 0 QRS: 23 QRSD: 90 T: 55 QT: 465 QTc: 461 Interpretive Statements JUNCTIONAL RHYTHM PROLONGED QT INTERVAL Electronically Signed On 12-22-2016 19:44:07 EDT by Maksim Lim MD
== END 2016-12-20 11:22 | disposition home or self-care (01) | DRG 309 ==
LOC: EMEROO 22:44 → 2NENU 22:44
PROVIDERS: ADMIT Internal Medicine; ATTEND Internal Medicine

== ENCOUNTER 2017-11-27 18:11 | Inpatient (IN) ==
[2017-11-27] MEDS ORDERED: 0.9 % Sodium Chloride 1,000 ML IVC ONE (18:31)
[2017-11-27] MEDS ORDERED: Aspirin 325 MG TABLET PO ONE (18:31)
--- NOTE | 2017-11-27 19:14 | Emergency Department Note ---
Disposition Clinical Impression: Atrial fibrillation with RVR, Diverticulitis Disposition: Admitted As Inpatient Condition: Good Time of Disposition: 20:26 Arrhythmia/Palpitations HPI - General Chief Complaint: ED Arrhythmia/Palpitations Stated Complaint: A-fib Time Seen by Provider: 11/27/17 18:26 Source: patient Mode of arrival: ambulatory Limitations: no limitations Nursing Notes Reviewed: Yes Vital Signs Reviewed: Yes - History of Present Illness HPI Narrative: 57-year-old male presents emergency Department with concerns of palpitations. Patient has a history of paroxysmal intrafibrillation. He states he felt his heart racing last night at 10 PM. He woke this morning and had continuation of his symptoms. He called his balance screwhead polisher, Dr. Jack Blount, who advised taking an extra dose of his Cardizem and then waiting for reevaluation. Patient took the medication however he did not have improvement of his palpitations and thus reported to the emergency department for further evaluation. Patient takes Xarelto for anticoagulation and denies recent trauma, fever, chills, nausea, vomiting, diarrhea. He does however report mild left lower quadrant abdominal pain and has a history of diverticulitis associated with his A. fib with RVR in the past. - Related Data Home Medications Medication Instructions Recorded Confirmed Tamsulosin [Flomax] 0.4 mg PO DAILY 04/13/16 11/27/17 Rivaroxaban [Xarelto] 20 mg PO DAILY 06/10/16 11/27/17 Diltiazem CD (24hr) [Cardizem CD] 120 mg PO DAILY 05/15/17 11/27/17 Gabapentin [Neurontin] 600 mg PO BID 11/13/17 11/27/17 Previous Rx's Medication Instructions Recorded Dofetilide [Tikosyn] 0.5 mg PO Q12H capsule 07/05/16 Allergies Allergy/AdvReac Type Severity Reaction Status Date / Time No Known Allergies Allergy Verified 11/13/17 10:20 All systems ED: reviewed and negative except as stated. Review of Systems: As Per HPI Constitutional: Denies: fever, chills, weakness ENT ED: Denies: ear pain, throat pain Cardiovascular: Denies: chest pain, palpitations Respiratory: Denies: cough, dyspnea, wheezes Gastrointestinal: Reports: abdominal pain. Denies: nausea, vomiting, diarrhea Genitourinary: Denies: urgency, dysuria Musculoskeletal: Denies: back pain, neck pain Past Medical History - Past Medical History Attestation: Yes The following information was validated with the patient. Source: patient Medical history: Reports: arthritis, atrial fibrillation, cancer, cardiomyopathy , COPD, coronary artery disease, hyperlipidemia, other Surgical history: Reports: herniorrhaphy, orthopedic, other, other Psychiatric history: Reports: no psych history - Social History Smoking Status: Former smoker Smokeless Tobacco Status: No Alcohol use: Reports: none Drug use: Reports: none Physical Exam General: Alert and in no acute distress Skin: Warm, dry, intact Head: Normocephalic and atraumatic Neck: Supple, trachea midline and no tenderness Cardiovascular: Tachycardic, irregularly irregular rhythm, no murmur, normal perfusion Respiratory: CTAB, no wheezing, cough, or respiratory distress Musculoskeletal: Normal strength, no tenderness, swelling or deformity GI: Soft, mild tenderness to palpation of the left lower quadrant without evidence of rigidity, guarding, or rebound. nondistended. Bowel sounds present Neuro: A&O to person, place, time and situation. No focal deficits noted on exam Psychiatric: cooperative and appropriate mood and affect. - General Limitations: no limitations General appearance: alert Course Vital Signs Temperature 98.5 F 11/27/17 18:15 Pulse Rate 111 11/27/17 18:15 Respiratory Rate 18 11/27/17 18:15 Blood Pressure 125/86 11/27/17 18:15 O2 Sat by Pulse Oximetry 98 11/27/17 18:15 Temperature 98.4 F 11/28/17 11:22 Pulse Rate 75 11/28/17 11:23 Respiratory Rate 16 11/28/17 07:47 Blood Pressure 115/82 11/28/17 11:22 O2 Sat by Pulse Oximetry 94 11/28/17 07:47 Oxygen Delivery Oxygen Delivery Room Air Arrhythmia/Palpitations - MDM Narrative Medical decision making narrative: Patient CT of the abdomen and pelvis returned with evidence of diverticulitis. Patient started on antibiotics in the emergency department and admitted to the hospitalist. - Medical Records Medical records reviewed: Yes I reviewed the patient's medical records. - Lab Data Lab results reviewed: Yes I reviewed the patient's lab results. Result diagrams: 11/28/17 05:37 11/28/17 05:37 Lab Results 11/27/17 11/27/17 11/27/17 Range/Units 18:43 18:43 18:43 WBC 28.4 H (4.3-11.1) K/mcL RBC 5.18 (4.19-5.50) M/mcL Hgb 14.5 (12.9-16.9) g/dL Hct 43.6 (37.5-50.1) % MCV 84.2 (83.0-100.0) fL MCH 28.0 (28.0-33.3) pg MCHC 33.3 (31.6-35.5) g/dL RDW 13.6 (11.5-14.5) % Plt Count 209 (140-400) K/mcL MPV 10.2 (9.4-12.4) fL Immature Gran % 0.3 (0-4) % Seg Neutrophils % 29.9 % Lymphocytes % 64.8 % Monocytes % 3.3 % Eosinophils % 1.3 % Basophils % 0.4 % Neutrophils # 8.5 (1.6-8.9) K/mcL Lymphocytes # 18.4 H (0.6-4.6) K/mcL Monocytes # 0.9 (0.0-1.3) K/mcL Eosinophils # 0.4 (0.0-0.6) K/mcL Basophils # 0.1 (0.0-0.2) K/mcL Nucleated RBCs/100 WBC 0.3 H (0) /100 WBC Reactive Lymphocytes Present A (Not Present) Platelet Estimate Normal (Normal) PT 15.1 H (9.4-12.1) Seconds INR 1.4 APTT 36.4 H (26.0-36.0) Seconds Sodium 141 (136-145) mEq/L Potassium 3.9 (3.5-5.1) mEq/L Chloride 109 H (98-107) mEq/L Carbon Dioxide 24 (23-29) mEq/L BUN 19 (6-20) mg/dL Creatinine 0.86 (0.70-1.30) mg/dL Est GFR ( Amer) > 60 (> 60) Est GFR (Non-Af Amer) > 60 (> 60) BUN/Creatinine Ratio 22 (6-26) Glucose 137 H (70-105) mg/dL Calculated Osmolality 296 (280-300) Calcium 9.0 (8.6-10.3) mg/dL Magnesium 1.8 (1.6-2.6) mg/dL Troponin I < 0.03 (< 0.04) ng/mL TSH 1.416 (0.340-5.600) mcIU/mL - Radiology Data Radiology results reviewed: Yes I reviewed the patient's radiology results. - EKG Data EKG attestation: Yes I reviewed and interpreted this EKG. EKG results narrative: Atrial fibrillation with a rapid ventricular response with a ventricular rate of 146 without evidence of STEMI. Critical Care Time Critical Care Time: Yes Total Critical Care Time: 35 Attestation: The high probability of a clinically significant, sudden or life threatening deterioration of the avascular system(s) required my full and direct attention, intervention and personal management. The aggregate critical care time was 35 minutes. This time is in addition to time spent performing reported procedures but includes the following: x Data Review and interpretation x Patient assessment and monitoring of vital signs x Documentation x Medication orders and management
[2017-11-27 19:36] LABS: Hemoglobin 14.5 g/dL (12.9-16.9)
[2017-11-27 19:38] LABS: Basophils # 0.1 K/mcL (0.0-0.2); Basophils % 0.4 %; Eosinophils # 0.4 K/mcL (0.0-0.6); Eosinophils % 1.3 %; Hematocrit 43.6 % (37.5-50.1); Immature Granulocytes % 0.3 % (0-4); Lymphocytes # 18.4 K/mcL (0.6-4.6); Lymphocytes % 64.8 %; Mean Corpuscular HGB Conc 33.3 g/dL (31.6-35.5); Mean Corpuscular Volume 84.2 fL (83.0-100.0); Mean Platelet Volume 10.2 fL (9.4-12.4); Monocytes # 0.9 K/mcL (0.0-1.3); Monocytes % 3.3 %; Neutrophils # 8.5 K/mcL (1.6-8.9); Nucleated Red Blood Cells 0.3 /100 WBC (0); Platelet Count 209 K/mcL (140-400); Red Blood Count 5.18 M/mcL (4.19-5.50); Red Cell Distribution Width 13.6 % (11.5-14.5); Segmented Neutrophils % 29.9 %
[2017-11-27 19:42] LABS: INR 1.4; Prothrombin Time 15.1 Seconds (9.4-12.1)
[2017-11-27 19:44] LABS: Activated Partial Thrombo Time 36.4 Seconds (26.0-36.0)
[2017-11-27 19:54] LABS: Platelet Estimate Normal (Normal)
[2017-11-27 19:55] LABS: Reactive Lymphocytes Present (Not Present)
[2017-11-27 19:58] LABS: BUN/Creatinine Ratio 22 (6-26); Blood Urea Nitrogen 19 mg/dL (6-20); Carbon Dioxide 24 mEq/L (23-29); Chloride 109 mEq/L (98-107); Glucose 137 mg/dL (70-105); Magnesium 1.8 mg/dL (1.6-2.6); Osmolality,Calculated 296 (280-300); Potassium 3.9 mEq/L (3.5-5.1); Sodium 141 mEq/L (136-145); Troponin I < 0.03 ng/mL (< 0.04); eGFR For African Americans > 60 (> 60); eGFR For Non-African Americans > 60 (> 60)
[2017-11-27 20:12] LABS: Thyroid Stimulating Hormone 1.416 mcIU/mL (0.340-5.600)
[2017-11-27] MEDS ORDERED: MetroNIDAZOLE 500 MG/100 ML 500 MG/100 ML BAG IVPB ONE (20:28)
[2017-11-27] MEDS ORDERED: Naloxone 0.4 MG/ML INJ IVP PRN (21:25)
--- NOTE | 2017-11-27 21:32 | Internal Med History&Physical ---
Date of Encounter: 11/27/17 Time of Encounter: 21:30 Assessment and Plan (1) Atrial fibrillation with RVR Current visit: Yes Status: Acute On Cardizem drip, telemetry, replace magnesium, check electrolytes, consult cardiology who is known to patient when rate better control would start by mouth Cardizem tomorrow And tikosyn Possibly provoked by early diverticulitis (2) Diverticulitis Current visit: No Status: Acute IV Zosyn for now Monitor symptoms clear diet for now Qualifiers: Diverticulitis site: large intestine Diverticulitis bleeding: without bleeding Qualified Code(s): K57.32 - Diverticulitis of large intestine without perforation or abscess without bleeding (3) Obesity (BMI 30-39.9) Current visit: No Status: Chronic Internal Medicine - H&P: HPI Chief complaint: Side abdominal pain, symptomatically atrial fibrillation History of present illness: Mr. Smith is a 57 year old male with history of P. atrial fibrillation on xarelto who presents with A. fib RVR and symptoms of acute early diverticulitis. Patient is under the care of Dr. Jack Blount and develops a dramatic A. fib since 10 PM last night's with symptoms of palpitations, depression and neck, headache. He has a history of ablation last March and had gone into proximal A. fib about 7 times since. Due to his recurrent atrial fibrillation he contacted Dr. Blount this morning in and was recommended to take extra dose of Cardizem and if did not get better presented to the ER for admission. He suspect that this A. fib could be provoked to early onset left lower quadrant diverticulitis where he had some pain rate 8 out of 10, no diarrhea, no fevers and chills. He reports that his atrial fibrillation may have been provoked by acute diverticulitis which he had prior. EKG personally reviewed with rate of 146, atrial fibrillation irregularly irregular, RVR CT/CT abd pelvis w iv no oral IMPRESSION: 1. Uncomplicated diverticulitis of the distal descending colon 2. Cholelithiasis XR/XR chest 1V portable IMPRESSION: No acute cardiopulmonary disease. Past Med Surg Social Fam HX - Past Medical History Medical history: arthritis, atrial fibrillation, cancer, cardiomyopathy, COPD, coronary artery disease, hyperlipidemia, other Psychiatric history: no psych history - Past Surgical History Surgical History: herniorrhaphy, orthopedic, other, other - Social History Smoking Status: Former smoker Smokeless Tobacco Status: No Alcohol use: none Drug use: none - Family History Brother Living Status: Still Living Hx Family Cardiac Disorders: No Hx Family Respiratory Disorders: No Hx Family Cancer: Yes (CLL) Hx Family GI Disorders: No Hx Family Endocrine Disorder: No Hx Family Neuromuscular Disorders: No Hx Family Neurologic Disorders: No Hx Family HEENT Disorders: No Hx Family Autoimmune Disorders: No Mother Family Member Ethnicity: Non- Living Status: Hx Family Cardiac Disorders: Yes (CABG, AFIB) Hx Family Respiratory Disorders: Yes (COPD) Hx Family Cancer: No Hx Family GI Disorders: No Hx Family Endocrine Disorder: Yes (renal diease) Hx Family Neuromuscular Disorders: No Hx Family Neurologic Disorders: No Hx Family HEENT Disorders: No Hx Family Autoimmune Disorders: No Father Family Member Ethnicity: Non- Living Status: Still Living Hx Family Cardiac Disorders: Yes (bad valve, aneysum heart stents, [place]) Hx Family Respiratory Disorders: No Hx Family Cancer: No Hx Family GI Disorders: No Hx Family Endocrine Disorder: No Hx Family Neuromuscular Disorders: No Hx Family Neurologic Disorders: No Hx Family HEENT Disorders: No Hx Family Autoimmune Disorders: No Internal Medicine - H&P: Meds Tamsulosin [Flomax] 0.4 mg PO DAILY 04/13/16 [History] Rivaroxaban [Xarelto] 20 mg PO DAILY 06/10/16 [History] Dofetilide [Tikosyn] 0.5 mg PO Q12H capsule 07/05/16 [Rx] Diltiazem CD (24hr) [Cardizem CD] 120 mg PO DAILY 05/15/17 [History] Gabapentin [Neurontin] 600 mg PO BID 11/13/17 [History] 3 Allergy/AdvReac Type Severity Reaction Status Date / Time No Known Allergies Allergy Verified 11/13/17 10:20 All Systems PM: A 10-system review of systems was performed and is negative for pertinent findings except as documented above in the HPI. Review of systems: ROS 14 point review of systems reviewed as best as possible given presentation. Pertinent positive or negative as per HPI or otherwise reviewed as negative - Constitutional Vitals: Temp Pulse Resp BP Pulse Ox 98.4 F 100 16 136/94 96 11/27/17 21:22 11/27/17 21:22 11/27/17 21:22 11/27/17 21:22 11/27/17 21:22 Exam: General - AAO x 3 Psych - Appropriate affect/speech. No agitation Eyes - JOSE. Eye lids intact. No scleral icterus Heart - irregularly irregular. S1 and S2 present. No added HS/murmurs appreciated. No elevated JVD appreciated. Lung - Adequate air entry b/l, No crackles/wheezes appreciated GI - left lower quadrant pain, Soft, non-tender, no guarding or rigidity, No hepatosplenomegaly/ascites. BS+ - No CVA/suprapubic tenderness or palpable bladder distension Skin - Intact. No rash/petechiae/ecchymosis. Trace bilateral edema Internal Med - H&P Results - Labs CBC & Chem 7: 11/27/17 18:43 11/27/17 18:43
[2017-11-27] MEDS: Piperacillin/Tazobactam 3.375 GM in 0.9 % Sodium Chloride Mini Bag 100 ML IVPB SCH (23:18)
[2017-11-28 05:58] LABS: Eosinophils % 1.3 %; Hemoglobin 13.9 g/dL (12.9-16.9)
[2017-11-28 05:59] LABS: Basophils # 0.1 K/mcL (0.0-0.2); Basophils % 0.4 %; Hematocrit 41.5 % (37.5-50.1); Immature Granulocytes % 0.3 % (0-4); Lymphocytes # 18.3 K/mcL (0.6-4.6); Lymphocytes % 68.5 %; Mean Corpuscular HGB Conc 33.5 g/dL (31.6-35.5); Mean Corpuscular Volume 83.7 fL (83.0-100.0); Monocytes # 0.9 K/mcL (0.0-1.3); Monocytes % 3.3 %; Platelet Count 192 K/mcL (140-400); Red Blood Count 4.96 M/mcL (4.19-5.50); Red Cell Distribution Width 13.7 % (11.5-14.5); Segmented Neutrophils % 26.2 %
[2017-11-28 06:01] LABS: Eosinophils # 0.4 K/mcL (0.0-0.6)
[2017-11-28 06:15] LABS: Platelet Estimate Normal (Normal)
[2017-11-28 06:16] LABS: Anisocytosis 1+ (Not Present); Reactive Lymphocytes Present (Not Present)
[2017-11-28 06:17] LABS: BUN/Creatinine Ratio 20 (6-26); Blood Urea Nitrogen 15 mg/dL (6-20); Calcium 8.8 mg/dL (8.6-10.3); Carbon Dioxide 24 mEq/L (23-29); Chloride 108 mEq/L (98-107); Glucose 132 mg/dL (70-105); Magnesium 1.8 mg/dL (1.6-2.6); Osmolality,Calculated 289 (280-300); Potassium 3.8 mEq/L (3.5-5.1); Sodium 138 mEq/L (136-145); eGFR For African Americans > 60 (> 60); eGFR For Non-African Americans > 60 (> 60)
[2017-11-28 06:18] LABS: Albumin 3.9 g/dL (3.5-5.7); Albumin/Globulin Ratio 1.5 (1.1-2.2); Bilirubin,Direct 0.1 mg/dL (0.0-0.2); Bilirubin,Indirect 0.8 mg/dL (0.0-1.2); Bilirubin,Total 0.9 mg/dL (0.3-1.0); Globulin 2.6 g/dL (2.4-3.5); Total Protein 6.5 g/dL (6.4-8.9)
[2017-11-28] MEDS: Piperacillin/Tazobactam 3.375 GM in 0.9 % Sodium Chloride Mini Bag 100 ML IVPB SCH (07:54)
[2017-11-28] MEDS: Gabapentin 300 MG CAPSULE PO SCH ×2 (07:54→21:51)
[2017-11-28] MEDS: *HR* Rivaroxaban 10 MG TABLET PO SCH (07:54)
[2017-11-28] MEDS ORDERED: *HR* OxyCODONE Immed Rel 5 MG TABLET PO PRN (08:17)
[2017-11-28] MEDS: *HR* OxyCODONE Immed Rel 5 MG TABLET PO PRN ×2 (09:32→21:54)
--- NOTE | 2017-11-28 10:34 | Internal Med Progress Note ---
Date of Encounter: 11/28/17 Time of Encounter: 10:33 - Assessment and plan (1) Sepsis Current Visit: Yes Status: Acute Assessment and plan: Sepsis secondary to acute diverticulitis Stop Zosyn Restart Rocephin and Flagyl IV Clear liquids, nothing by mouth if worse, continue IV fluids Protonix IV CT scan of the abdomen showed acute diverticulitis in the descending colon Qualifiers: Sepsis type: sepsis due to unspecified organism Qualified Code(s): A41.9 - Sepsis, unspecified organism (2) Acute diverticulitis Current Visit: Yes Status: Acute (3) Atrial fibrillation with RVR Current Visit: Yes Status: Acute Assessment and plan: A. fib with RVR triggered by sepsis due to acute diverticulitis Continue Tikosyn Continue Cardizem drip and titrate The patient requested to see his manager er, Dr. Blount Continue xarelto (4) Obstructive sleep apnea Current Visit: No Status: Chronic (5) Chronic lymphocytic leukemia Current Visit: No Status: Chronic Assessment and plan: Follow up as an outpatient (6) COPD (chronic obstructive pulmonary disease) Current Visit: No Status: Chronic Assessment and plan: No exacerbation Qualifiers: COPD type: chronic bronchitis Chronic bronchitis type: simple Qualified Code(s): J41.0 - Simple chronic bronchitis (7) S/P ablation of atrial fibrillation Current Visit: No Status: Acute - Subjective Interval history: Complains of persistent left-sided abdominal pain, heart rate is very irregular , denies any chest pain or shortness of breath, no dysuria or diarrhea, no fevers - Constitutional Vitals: Temp Pulse Resp BP Pulse Ox 97.8 F 59 16 156/80 94 11/28/17 07:47 11/28/17 10:21 11/28/17 07:47 11/28/17 07:47 11/28/17 07:47 General appearance: Present: A&O X 3 - Head Head exam: Present: atraumatic, normocephalic - Eye Eye exam: Present: PERRL, conjuntiva pink, sclera anicteric Pupils: Present: PERRL - Neck Neck exam general surgery: Present: supple, trachea midline. Absent: lymphadenopathy - Respiratory Respiratory exam: Present: CTAB. Absent: accessory muscle use, rales, rhonchi, wheezes - Cardiovascular Cardiovascular exam: Present: irregular rhythm, RRR, +S1, +S2. Absent: diastolic murmur, gallop, rubs, systolic murmur - GI/Abdominal GI/Abdominal exam: Present: normal bowel sounds, soft, tenderness (Left hemiabdomen tenderness), no peritoneal signs. Absent: distended - Extremities Exam Extremities exam: Present: warm, radial pulses palpable and symmetrical. Absent : calf tenderness, cyanotic, pedal edema - Neurological Exam Neurological exam: Present: CN II-XII intact, oriented X3, no focal deficits. Absent: pronater drift, facial droop, speech deficit - Skin Skin exam: Present: dry, intact Internal Medicine: Result - Labs CBC & Chem 7: 11/28/17 05:37 11/28/17 05:37 Labs: Short CBC 11/28/17 Range/Units 05:37 WBC 26.7 H (4.3-11.1) K/mcL Hgb 13.9 (12.9-16.9) g/dL Hct 41.5 (37.5-50.1) % Plt Count 192 (140-400) K/mcL Neutrophils # 7.0 (1.6-8.9) K/mcL BMP 11/28/17 05:37 Sodium 138 Potassium 3.8 Chloride 108 H Carbon Dioxide 24 BUN 15 Creatinine 0.75 Glucose 132 H Calcium 8.8 Liver Function 11/28/17 Range/Units 05:37 Total Bilirubin 0.9 (0.3-1.0) mg/dL Direct Bilirubin 0.1 (0.0-0.2) mg/dL AST 22 (13-39) Units/L ALT 43 (7-52) Units/L Alkaline Phosphatase 70 (34-104) Units/L Albumin 3.9 (3.5-5.7) g/dL - ABG Interpretation ABG results: PT/INR, D-dimer PT 15.1 Seconds (9.4-12.1) H 11/27/17 18:43 Consult Discharge Plan - Plan Referrals: Becky Davis MD [Primary Care Provider] -
[2017-11-28] MEDS ORDERED: cefTRIAXone 1,000 MG in Water for inj. (sterile) 20 ML 10 ML IVP SCH (11:00)
[2017-11-28] MEDS: MetroNIDAZOLE 500 MG/100 ML 500 MG/100 ML BAG IVPB SCH ×2 (11:26→17:42)
--- NOTE | 2017-11-28 15:45 | Cardiology Consult Note ---
Date of Encounter: 11/28/17 Time of Encounter: 14:30 Assessment and Plan (1) Acute diverticulitis Current Visit: Yes Status: Acute Per cardiology: -Being treated for acute diverticulitis per primary service. -May be contributing to a.fib RVR> -Management per primary service. (2) Atrial fibrillation with RVR Current Visit: Yes Status: Chronic Per cardiology: -Known history of a.fib s/p ablation 06/2017. -Now with recurrence of a.fib. -On cardizem drip at 5mg/hour. -On tikosyn 500mcg Q12 hours and cardizem cd 120mg daily at home. -Now in SR, HR 60s. -Will start cardizem CD 180mg daily. -Wean off cardizem drip after oral cardizem given. -Anticipate cardiology sign off. -WIll set up outpatient follow up. Discussion w patient/family: The assessment and plan as outlined above was discussed with the patient and/or family members who expressed understanding and agreement. All questions were answered. Thank you for involving us in the care of your patient. Please call with any questions. Discussed and reviewed with . History of Present Illness Consult date: 11/27/17 Requesting physician: Kelly Joy Consult reason: a.fib Chief complaint: a.fib History of present illness: Mr. Smith is a 57 year old male with a relevant past medical history of CLL, PAF s/p ablation 06/2017, diverticulitis. Patient presented to [facility] with complaints of a.fib. Patient states she can tell when he is in a.fib with fluttering. Patient was advised to come to ER per primary store protection specialist, Dr.John Blount. Patient reports he feels like he is in sinus rhythm now. Denies chest pain, shortness of breath. Past Med Surg Social Fam HX - Past Medical History Attestation: Yes The following information was validated with the patient. Source: patient, old records reviewed, obtained from family Medical history: arthritis, atrial fibrillation, cancer, cardiomyopathy, COPD, coronary artery disease, hyperlipidemia, other Psychiatric history: no psych history - Past Surgical History Surgical History: herniorrhaphy, orthopedic, other, other - Social History Smoking Status: Former smoker Smokeless Tobacco Status: No Alcohol use: none Drug use: none - Family History Brother Living Status: Still Living Hx Family Cardiac Disorders: No Hx Family Respiratory Disorders: No Hx Family Cancer: Yes (CLL) Hx Family GI Disorders: No Hx Family Endocrine Disorder: No Hx Family Neuromuscular Disorders: No Hx Family Neurologic Disorders: No Hx Family HEENT Disorders: No Hx Family Autoimmune Disorders: No Mother Family Member Ethnicity: Non- Living Status: Hx Family Cardiac Disorders: Yes (CABG, AFIB) Hx Family Respiratory Disorders: Yes (COPD) Hx Family Cancer: No Hx Family GI Disorders: No Hx Family Endocrine Disorder: Yes (renal diease) Hx Family Neuromuscular Disorders: No Hx Family Neurologic Disorders: No Hx Family HEENT Disorders: No Hx Family Autoimmune Disorders: No Father Family Member Ethnicity: Non- Living Status: Still Living Hx Family Cardiac Disorders: Yes (bad valve, aneysum heart stents, [place]) Hx Family Respiratory Disorders: No Hx Family Cancer: No Hx Family GI Disorders: No Hx Family Endocrine Disorder: No Hx Family Neuromuscular Disorders: No Hx Family Neurologic Disorders: No Hx Family HEENT Disorders: No Hx Family Autoimmune Disorders: No Medications and Allergies Tamsulosin [Flomax] 0.4 mg PO DAILY 04/13/16 [History] Rivaroxaban [Xarelto] 20 mg PO DAILY 06/10/16 [History] Dofetilide [Tikosyn] 0.5 mg PO Q12H capsule 07/05/16 [Rx] Diltiazem CD (24hr) [Cardizem CD] 120 mg PO DAILY 05/15/17 [History] Gabapentin [Neurontin] 600 mg PO BID 11/13/17 [History] 3 Allergy/AdvReac Type Severity Reaction Status Date / Time No Known Allergies Allergy Verified 11/13/17 10:20 All Systems Review: The remainder of the systems were reviewed and are negative - Cardiovascular Cardiovascular: as per HPI, palpitations Physical Examination Vital Signs Temperature 98.5 F 11/27/17 18:15 Pulse Rate 111 11/27/17 18:15 Respiratory Rate 18 11/27/17 18:15 Blood Pressure 125/86 11/27/17 18:15 O2 Sat by Pulse Oximetry 98 11/27/17 18:15 Temperature 98.4 F 11/28/17 11:22 Pulse Rate 75 11/28/17 11:23 Respiratory Rate 16 11/28/17 07:47 Blood Pressure 115/82 11/28/17 11:22 O2 Sat by Pulse Oximetry 94 11/28/17 07:47 Oxygen Delivery Oxygen Delivery Room Air General: Conversant, No Apparent Distress HEENT: Atraumatic, Normocephaly, Mucus Membranes Moist Neck: No JVD, Normal carotid pulses Cardiac: Reg Rate and Rhythm, Normal S1 and S2, No Murmur Lungs: Normal Breath Sounds, No Wheeze, Rales, Rhonchi Neuro: Alert and responsive, No focal deficits noted Abdomen: Soft, Non-Tender Skin: No rashes noted on visualized skin Musculoskeletal: No Chest Wall Tenderness Extremities: No Clubbing, No Cyanosis, Normal Pulses, Other (Mild bilateral non- pitting edema. ) Results 11/28/17 05:37 11/28/17 05:37 Lab Results Impressions Chest X-Ray 11/27/17 18:31 IMPRESSION: No acute cardiopulmonary disease. D/ / Saravanan Brito MD / Saravanan Brito MD Interpreting Provider: Saravanan Brito MD Abdomen/Pelvis CT 11/27/17 18:33 IMPRESSION: 1. Uncomplicated diverticulitis of the distal descending colon 2. Cholelithiasis D/ / Jon Alexander MD / Jon Alexander MD Interpreting Provider: Jon Alexander MD Active Medications Diltiazem HCl (Cardizem Cd) 180 mg PO DAILY [facility]IREEN Stop: 05/30/18 15:31 Dofetilide (Tikosyn) 0.5 mg PO Q12H [facility]EN Stop: 05/29/18 21:31 Last Admin: 11/28/17 09:32 Dose: 0.5 mg Gabapentin (Neurontin) 600 mg PO BID [facility]IREEN Stop: 05/30/18 09:01 Last Admin: 11/28/17 07:54 Dose: 600 mg Diltiazem HCl 125 mg/ Sodium (Chloride) 125 mls @ 5 mls/hr IVC .Q24H [facility]IREEN PRN Reason: 5 MG/HR Stop: 05/29/18 18:46 Last Infusion: 11/28/17 11:28 Dose: 5 mg/hr, 5 mls/hr Magnesium Sulfate (Magnesium Sulfate Premix 2gm/50ml) 2 gm in 50 mls @ 50 mls/ hr IVPB Q5H PRN PRN Reason: Magnesium less than 2.4 Stop: 05/29/18 21:28 Metronidazole (Flagyl Premix 500 Mg/100 Ml) 500 mg in 100 mls @ 100 mls/hr IVPB Q8HR [facility] Stop: 05/30/18 10:34 Last Infusion: 11/28/17 14:39 Dose: Infused Ceftriaxone Sodium 1,000 mg/ (Sterile Water) 10 mls @ 300 mls/hr IVP DAILY [facility] Stop: 05/30/18 11:01 Last Infusion: 11/28/17 11:34 Dose: Infused Naloxone HCl (Narcan) 0.4 mg IVP Q2MIN PRN PRN Reason: SEE COMMENTS Stop: 05/29/18 21:26 Omeprazole (Prilosec) 40 mg PO DAILY@0630 [facility] PRN Reason: Protocol Stop: 05/31/18 06:31 Oxycodone HCl (Roxicodone) 5 mg PO Q6HR PRN; Protocol PRN Reason: Pain Stop: 05/30/18 08:18 Oxycodone HCl (Roxicodone) 10 mg PO Q6HR PRN; Protocol PRN Reason: Severe Pain Stop: 05/30/18 08:18 Last Admin: 11/28/17 09:32 Dose: 10 mg Rivaroxaban (Xarelto) 20 mg PO DAILY [facility] Stop: 05/30/18 09:01 Last Admin: 11/28/17 07:54 Dose: 20 mg Tamsulosin HCl (Flomax) 0.4 mg PO HS [facility] PRN Reason: Protocol Stop: 05/30/18 21:01 Laboratory Tests 11/27/17 11/28/17 11/28/17 18:43 05:37 05:37 WBC 26.7 H Hgb 13.9 Potassium 3.8 Creatinine 0.75 Magnesium 1.8 Troponin I < 0.03 TSH 1.416 - Imaging and Cardiology Chest Xray: report reviewed Echo: report reviewed - EKG Interpretation EKG results cardiology: personally reviewed (ECG with sally RVR, HR 146.), other (Telemetry reviewed with average HR previous 12 hours noted to be 104. However, patient is now in SR, HR 60s.) Consult Discharge Plan - Plan Referrals: Becky Davis MD [Primary Care Provider] -
[2017-11-28] MEDS: Diltiazem CD (24hr) 180 MG CAPSULE PO SCH (15:46)
[2017-11-28] MEDS ORDERED: DILTIAZEM HCL 100 MG IVC SCH (16:00)
[2017-11-29] MEDS: MetroNIDAZOLE 500 MG/100 ML 500 MG/100 ML BAG IVPB SCH ×2 (00:14→08:50)
[2017-11-29 05:22] LABS: Hematocrit 41.4 % (37.5-50.1); Hemoglobin 13.5 g/dL (12.9-16.9); Mean Corpuscular HGB Conc 32.6 g/dL (31.6-35.5); Mean Corpuscular Hemoglobin 27.6 pg (28.0-33.3); Mean Corpuscular Volume 84.7 fL (83.0-100.0); Platelet Count 200 K/mcL (140-400); Red Blood Count 4.89 M/mcL (4.19-5.50); Red Cell Distribution Width 13.5 % (11.5-14.5)
[2017-11-29 06:25] LABS: BUN/Creatinine Ratio 15 (6-26); Blood Urea Nitrogen 15 mg/dL (6-20); Calcium 8.9 mg/dL (8.6-10.3); Carbon Dioxide 23 mEq/L (23-29); Chloride 106 mEq/L (98-107); Glucose 132 mg/dL (70-105); Osmolality,Calculated 287 (280-300); Potassium 3.7 mEq/L (3.5-5.1); Sodium 137 mEq/L (136-145); eGFR For African Americans > 60 (> 60); eGFR For Non-African Americans > 60 (> 60)
[2017-11-29 06:55] VITALS: BP 116/74
--- NOTE | 2017-11-29 08:26 | Discharge Summary ---
- NOTES TO OUTPATIENT PROVIDER Notes to Outpatient Provider: Follow-up with primary care physician within the next 7 days. Increase Cardizem dose up to 180 milligrams a day. Continue cefdinir and Flagyl for 6 more days. Follow-up with cardiology within the next 3 weeks Orders not resulted at time of discharge: Pending orders 11/30/17 04:00 Basic Metabolic Panel AM 0400 Complete Blood Count w/o Diff [HEME] AM 0400 Lactic Acid AM 0400 Date of Encounter: 11/29/17 Time of Encounter: 08:21 - Discharge Diagnosis (1) Sepsis Priority: Primary Status: Acute Comments: Sepsis secondary to acute diverticulitis Qualifiers: Sepsis type: sepsis due to unspecified organism Qualified Code(s): A41.9 - Sepsis, unspecified organism (2) Acute diverticulitis Priority: Primary Status: Acute (3) Atrial fibrillation with RVR Priority: Primary Status: Chronic Comments: A. fib with RVR triggered by sepsis due to acute diverticulitis (4) Obstructive sleep apnea Priority: Secondary Status: Chronic (5) Chronic lymphocytic leukemia Priority: Secondary Status: Chronic (6) COPD (chronic obstructive pulmonary disease) Priority: Secondary Status: Chronic Qualifiers: COPD type: chronic bronchitis Chronic bronchitis type: simple Qualified Code(s): J41.0 - Simple chronic bronchitis (7) S/P ablation of atrial fibrillation Priority: Secondary Status: Acute Hospital course: Mr. Smith is a 57 year old male with history of P. atrial fibrillation on xarelto, tikosyn and cardizem, CLL , acute diverticulitis, COPD not oxygen dependent, obstructive sleep apnea, history of ablation, percentage to the hospital with A. fib RVR and symptoms of acute early diverticulitis. Patient is under the care of Dr. Jack Blount, developed A. fib with RVR at 10 PM with symptoms of palpitations, chest pain, neck pain, headache. He has a history of ablation last March and had gone into proximal A. fib about 7 times since. Due to his recurrent atrial fibrillation he contacted Dr. Blount and was recommended to take extra dose of Cardizem and if did not get better presented to the ER for admission. Complained of abdominal pain rated 8 out of 10, no diarrhea, no fevers and chills. He reports that his atrial fibrillation may have been provoked by acute diverticulitis in the past. CT scan of the abdomen showed diverticulitis in the distal descending colon and cholelithiasis His white blood cell count has come down to 21.2 which is close to his baseline , on the day of his admission it was 28.4. Was started on a Cardizem drip, cardiology was consulted. His dose of Cardizem was increased to 180 mg daily. Initially, he received Zosyn and then switched to Rocephin and Flagyl. The patient feeling much better today, the abdominal pain is 1/10 and is requesting to be discharged. The patient is tolerating the clear liquid diet very well. He was given the option to stay another day but prefers to go home after having lunch and making sure he is tolerating the diet. - Time Spent with Patient Total time spent providing and/or coordinating discharge services: Greater than 30 minutes (40 min) - Discharge Medications Prescriptions: OxyCODONE Immed Rel [Roxicodone 5 MG] 5 mg PO Q6HR PRN 5 Days #20 tablet PRN Reason: Pain Cefdinir [Omnicef] 300 mg PO BID #12 capsule Diltiazem CD (24hr) [Cardizem CD] 180 mg PO DAILY #30 cap.er.24h metroNIDAZOLE [Flagyl] 500 mg PO TID #18 tablet Omeprazole [PriLOSEC] 40 mg PO DAILY@0630 #30 capsule. Home Medications: Tamsulosin [Flomax] 0.4 mg PO DAILY 04/13/16 [History] Rivaroxaban [Xarelto] 20 mg PO DAILY 06/10/16 [History] Dofetilide [Tikosyn] 0.5 mg PO Q12H capsule 07/05/16 [Rx] Gabapentin [Neurontin] 600 mg PO BID 11/13/17 [History] Cefdinir [Omnicef] 300 mg PO BID #12 capsule 11/29/17 [Rx] Diltiazem CD (24hr) [Cardizem CD] 180 mg PO DAILY #30 cap.er.24h 11/29/17 [Rx] Omeprazole [PriLOSEC] 40 mg PO DAILY@0630 #30 capsule. 11/29/17 [Rx] OxyCODONE Immed Rel [Roxicodone 5 MG] 5 mg PO Q6HR PRN 5 Days #20 tablet [Rx] metroNIDAZOLE [Flagyl] 500 mg PO TID #18 tablet 11/29/17 [Rx] Allergies/Adverse Reactions: 3 Allergy/AdvReac Type Severity Reaction Status Date / Time No Known Allergies Allergy Verified 11/13/17 10:20 Date of admission: 11/27/17 21:25 Primary care physician: Becky Kaur Consults: 11/27/17 21:27 Consult to Cardiology [CONS] Routine Comment: Consulting Provider: [facility] [place] Reason for Consult: afib Call Completed: No - Constitutional Vitals: Temp Pulse Resp BP Pulse Ox 97.5 F L 67 16 116/74 94 11/29/17 06:54 11/29/17 06:54 11/29/17 06:54 11/29/17 06:54 11/29/17 06:54 General appearance: Present: A&O X 3 - Head Head exam: Present: atraumatic, normocephalic - Eye Eye exam: Present: PERRL, conjuntiva pink, sclera anicteric Pupils: Present: PERRL - Neck Neck exam general surgery: Present: supple, trachea midline. Absent: lymphadenopathy - Respiratory Respiratory exam: Present: CTAB. Absent: accessory muscle use, rales, rhonchi, wheezes - Cardiovascular Cardiovascular exam: Present: RRR, +S1, +S2. Absent: diastolic murmur, gallop, rubs, systolic murmur - GI/Abdominal GI/Abdominal exam: Present: normal bowel sounds, soft, no peritoneal signs. Absent: distended, tenderness - Extremities Exam Extremities exam: Present: warm, radial pulses palpable and symmetrical. Absent : calf tenderness, cyanotic, pedal edema - Neurological Exam Neurological exam: Present: CN II-XII intact, oriented X3, no focal deficits. Absent: pronater drift, facial droop, speech deficit - Skin Skin exam: Present: dry, intact - Patient Status Disposition: Home, Self-Care Condition: Good Overall status at discharge: patient is back to baseline - Discharge Instructions Follow Up With: Becky Davis MD [Primary Care Provider] - Additional Instructions: Follow-up with primary care physician within the next 7 days. Increase Cardizem dose up to 180 milligrams a day. Continue cefdinir and Flagyl for 6 more days. Follow-up with cardiology within the next 3 weeks - Diet and Activity Activity: increase activity as tolerated Diet: low fat, low cholesterol
[2017-11-29] MEDS ORDERED: cefTRIAXone 1,000 MG in Water for inj. (sterile) 20 ML 10 ML IVP SCH (08:30)
[2017-11-29] MEDS: Gabapentin 300 MG CAPSULE PO SCH (08:51)
[2017-11-29] MEDS: Diltiazem CD (24hr) 180 MG CAPSULE PO SCH (08:51)
[2017-11-29] MEDS: *HR* Rivaroxaban 10 MG TABLET PO SCH (08:51)
--- NOTE | 2017-12-01 06:42 | Electrocardiograph Report ---
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
== END 2017-11-29 13:27 | disposition home or self-care (01) | DRG 872 ==
LOC: EMEROO 18:11 → 3BNU 18:11
PROVIDERS: ADMIT Internal Medicine Hematology & Oncology; ATTEND Internal Medicine

== ENCOUNTER 2019-01-31 08:43 | Inpatient (IN) ==
[2019-01-31] MEDS ORDERED: Ondansetron 4 MG/2 ML VIAL IVP ONE (08:58)
[2019-01-31] MEDS ORDERED: Isovue-370 500 ML BOTTLE IVP ONE (09:00)
[2019-01-31] MEDS ORDERED: *HR* FentaNYL (PF) 100 MCG/2 ML VIAL IVP ONE (09:00)
[2019-01-31] MEDS ORDERED: 0.9 % Sodium Chloride 1,000 ML IVC ONE (09:03)
--- NOTE | 2019-01-31 09:05 | Emergency Department Note ---
Disposition Clinical Impression: Acute cholecystitis, CLL (chronic lymphocytic leukemia) Chest pain Qualifiers: Chest pain type: unspecified Qualified Code(s): R07.9 - Chest pain, unspecified Disposition: Admitted As Inpatient Condition: Fair Time of Disposition: 12:50 General Adult HPI - General Chief complaint: ED Chest Pain Stated complaint: CP, N/V Time Seen by Provider: 01/31/19 08:58 Source: patient Mode of arrival: ambulatory Limitations: no limitations Nursing Notes Reviewed: Yes Vital Signs Reviewed: Yes - History of Present Illness HPI Narrative: 58-year-old male history of CAD, CHF and A. fib, CLL presents for evaluation of chest pain nausea vomiting. Patient is at his gallbladder is acting up. Patient's onset of symptoms was upon waking up this morning around 7:00. Patient notes anterior epigastric chest pain rating to his back. States is similar to his prior gallbladder attacks. Notes nausea vomiting and diaphoresis. Patient denies any notable aggravating or alleviating symptoms. Patient denies any fevers or cough. States he does have known gallstones. Patient also has a prior history of A. fib on Xarelto. Pain Scale: 10 - Related Data Home Medications Medication Instructions Recorded Confirmed Tamsulosin [Flomax] 0.4 mg PO DAILY 04/13/16 01/31/19 Rivaroxaban [Xarelto] 20 mg PO DAILY 06/10/16 01/31/19 Diltiazem CD (24hr) [Cardizem CD] 120 mg PO DAILY 05/17/18 01/31/19 Dofetilide [Tikosyn] 500 mcg PO BID 06/24/18 01/31/19 Allergies Allergy/AdvReac Type Severity Reaction Status Date / Time No Known Allergies Allergy Verified 11/15/18 11:20 All systems ED: reviewed and negative except as stated. Constitutional: Denies: fever Cardiovascular: Reports: chest pain Respiratory: Denies: cough, dyspnea Gastrointestinal: Reports: abdominal pain, nausea, vomiting Past Medical History - Past Medical History Source: patient Medical history: Reports: arthritis, atrial fibrillation, cancer, cardiomyopathy, COPD, coronary artery disease, hyperlipidemia, other Surgical history: Reports: herniorrhaphy, orthopedic, other, other Psychiatric history: Reports: no psych history - Social History Smoking Status: Former smoker Smokeless Tobacco Status: No Alcohol use: Reports: none Drug use: Reports: none Physical Exam - General Limitations: no limitations General appearance: alert, in distress - Head Head exam: atraumatic, normocephalic, normal inspection - Eye Eye exam: Present: normal appearance, PERRL, EOMI - ENT ENT exam: normal exam, normal oropharynx, mucous membranes moist - Neck Neck exam: Present: normal inspection - Chest Chest inspection: Present: normal inspection, symmetric chest wall rise - Respiratory Respiratory exam: Present: normal lung sounds bilaterally - Cardiovascular Cardiovascular exam: Present: regular rate, normal rhythm. Absent: normal heart sounds - Abdominal Exam Abdominal exam: Present: soft, tenderness (Epigastric). Absent: guarding, rebound - Extremities Exam Extremities exam: Present: normal inspection. Absent: pedal edema - Back Exam Back exam: Present: normal inspection - Neurological Exam Neurological exam: Present: alert, oriented X3, CN II-XII intact - Skin Skin exam: Present: warm, dry, intact, normal color Course Course Narrative: Patient will get basic cardiopulmonary screening labs. Patient also get CT of the chest and pelvis given the patient's location with concerns of pain in his back. - Reevaluation(s) Reevaluation #1: Patient still complaining of some pain. Patient CT report does not reveal any dissection. Will obtain color ultrasound given the amount of discomfort. Erik tapiant also be given a nitroglycerin to see if his pain is more cardiac related. Time: 10:23 Reevaluation #2: Patient did not get significant relief with the nitroglycerin. Patient will be given additional pain medicine. Time: 11:04 Reevaluation #3: Patient seen and examined. Patient's ED course discussed at bedside. Concerns for early cholecystitis. Time: 12:48 - Consultations Consultation #1: Discuss the ED course presentation and concerns for early cholecystitis with the on-call surgeon. Patient will be made nothing by mouth and be admitted. Antibiotics ordered in the ED. Surgery will consult the patient the patient will be admitted to the hospitalist. Time: 12:49 Vital Signs Temperature 97.7 F 01/31/19 08:45 Pulse Rate 85 01/31/19 08:45 Respiratory Rate 16 01/31/19 08:45 Blood Pressure 139/86 01/31/19 08:45 O2 Sat by Pulse Oximetry 98 01/31/19 08:45 Temperature 97.7 F 01/31/19 08:45 Pulse Rate 62 01/31/19 12:47 Respiratory Rate 16 01/31/19 12:47 Blood Pressure 153/88 01/31/19 12:47 O2 Sat by Pulse Oximetry 99 01/31/19 12:47 Oxygen Delivery Oxygen Delivery Room Air Medical Decision Making - MDM Narrative Medical decision making narrative: Patient seen and examined. Patient presented looking uncomfortable concerns initially for aortic dissection given his discomfort. Patient CT dissection study showed a normal aorta. Patient color ultrasound shows likely early cholecystitis patient does have known cholelithiasis. Patient does have a known history of CLL. Patient does have reversible tenderness the right upper quad rant. Discussed the case with the surgeon who recommends antibiotics nothing by mouth and admission. Patient will be admitted the hospital service given his comorbid condition as well as been on Xarelto. Surgery was consultED. - Lab Data Lab results reviewed: Yes I reviewed the patient's lab results. Result diagrams: 01/31/19 09:01 01/31/19 09:01 Lab Results 01/31/19 01/31/19 01/31/19 Range/Units 09:01 09:01 09:01 WBC 48.3 H* (4.3-11.1) K/mcL RBC 5.07 (4.19-5.50) M/mcL Hgb 14.1 (12.9-16.9) g/dL Hct 44.1 (37.5-50.1) % MCV 87.0 (83.0-100.0) fL MCH 27.8 L (28.0-33.3) pg MCHC 32.0 (31.6-35.5) g/dL RDW 13.9 (11.5-14.5) % Plt Count 231 (140-400) K/mcL MPV 9.8 (9.4-12.4) fL Immature Gran % 0.3 (0-4) % Seg Neutrophils % 14.3 % Lymphocytes % 83.6 % Monocytes % 1.2 % Eosinophils % 0.3 % Basophils % 0.3 % Neutrophils # 6.9 (1.6-8.9) K/mcL Lymphocytes # 40.4 H (0.6-4.6) K/mcL Monocytes # 0.6 (0.0-1.3) K/mcL Eosinophils # 0.1 (0.0-0.6) K/mcL Basophils # 0.1 (0.0-0.2) K/mcL PT 15.7 H (9.4-12.1) Seconds INR 1.4 APTT 40.3 H (26.0-36.0) Seconds Sodium 139 (136-145) mEq/L Potassium 4.2 (3.5-5.1) mEq/L Chloride 105 (98-107) mEq/L Carbon Dioxide 23 (23-29) mEq/L BUN 17 (6-20) mg/dL Creatinine 0.93 (0.70-1.30) mg/dL Est GFR ( Amer) > 60 (> 60) Est GFR (Non-Af Amer) > 60 (> 60) BUN/Creatinine Ratio 18 (6-26) Glucose 164 H (70-105) mg/dL Calculated Osmolality 293 (280-300) Calcium 9.3 (8.6-10.3) mg/dL Total Bilirubin 0.5 (0.3-1.0) mg/dL Direct Bilirubin 0.1 (0.0-0.2) mg/dL Indirect Bilirubin 0.4 (0.0-1.2) mg/dL AST 24 (13-39) Units/L ALT 34 (7-52) Units/L Alkaline Phosphatase 82 (34-104) Units/L Troponin I < 0.03 (< 0.04) ng/mL Serum Total Protein 7.4 (6.4-8.9) g/dL Albumin 4.6 (3.5-5.7) g/dL Globulin 2.8 (2.4-3.5) g/dL Albumin/Globulin Ratio 1.6 (1.1-2.2) Lipase 15 (11-82) Units/L - Radiology Data Radiology results reviewed: Yes I reviewed the patient's radiology results. Chest X-Ray 01/31/19 08:58 IMPRESSION: 1. No acute cardiopulmonary process. 2. Indeterminate nodular density involving the right upper lobe appears new or increased in size from prior exam. Chest CT correlation recommended. D/ / 01/31/2019 09:25:56 Rajesh Thomas MD / Maame Steele Interpreting Provider: Rajesh Thomas MD CT Dissection 01/31/19 09:00 IMPRESSION: No dissection identified in the chest abdomen or pelvis. A few very tiny punctate pulmonary nodules appear unchanged compared to prior Cholelithiasis and diverticulosis D/ / Emanuel Guerrero MD / Emanuel Guerrero MD Interpreting Provider: Emanuel Guerrero MD Chest X-Ray 01/31/19 08:58 IMPRESSION: 1. No acute cardiopulmonary process. 2. Indeterminate nodular density involving the right upper lobe appears new or increased in size from prior exam. Chest CT correlation recommended. D/ / 01/31/2019 09:25:56 Rajesh Thomas MD / Maame Steele Interpreting Provider: Rajesh Thomas MD CT Dissection 01/31/19 09:00 IMPRESSION: No dissection identified in the chest abdomen or pelvis. A few very tiny punctate pulmonary nodules appear unchanged compared to prior Cholelithiasis and diverticulosis D/ / Emanuel Guerrero MD / Emanuel Guerrero MD Interpreting Provider: Emanuel Guerrero MD Gallbladder Ultrasound 01/31/19 10:10 IMPRESSION: Cholelithiasis. There is equivocal trace pericholecystic fluid, and the patient was tender on sonographic exam of the gallbladder, raising the question of early cholecystitis Fatty liver D/ / Emanuel Guerrero MD / Emanuel Guerrero MD Interpreting Provider: Emanuel Guerrero MD - EKG Data EKG #1 EKG attestation: Yes I reviewed and interpreted this EKG. EKG shows normal: sinus rhythm Rate: bradycardia Rhythm: NSR [place]/QRS: normal T wave inversions noted in: aVR Interpretation: no acute changes Attestation Statement - Attestation Attestation: Patient was seen with resident physician. I reviewed the history, physical, assessment and plan, and agree with the findings. I also personally evaluated this patient and had [id number] time with this patient. 58-year-old male presents emergency Department with what he says is a gallbladder attack. Patient states around 7 AM he was woke with pain in his midepigastric right upper quadrant area. He said was similar to his last gallbladder attack. He recently had studies demonstrating gallstones. He had some nausea vomiting and diaphoresis with this which ultimately prompted his visit. He says the pain is not improved. Also radiates up into the lower portion of the chest as well as the back. Denies other symptoms. Review of systems as above remainder negative. Physical exam. Initial vital signs are stable. ENT is unremarkable. Heart regular rate. Lungs clear. Abdomen obese. Tender in the midepigastric area. No guarding rigidity. Extremity is unremarkable. Neurologically intact pre-and skin no rashes. Psych normal. ED course. We will do a cardiac and abdominal pain workup. Include CTAs of the chest abdomen and pelvis. He has no gallstones if this scan is negative for acute cholecystitis we will likely add an ultrasound to the testing. CT did not reveal any acute dissection. We did order an ultrasound which was indicative of early cholecystitis. Labs showed elevated white cell count not entirely inconsistent with his medical history. However with the findings of the ultrasound we wanted patient to be evaluated by surgery. Because the patient's on blood thinners they preferred the patient be admitted to the hospitalist service with surgical consultation. We spoke with the hospitalist and agreed to accept the patient. Symptomatically the patient was improved through stay. He modynamically he remained stable throughout his stay in the emergency department. I agree with resident physician assessment and plan.
[2019-01-31 09:19] LABS: Eosinophils % 0.3 %; Hematocrit 44.1 % (37.5-50.1); Lymphocytes % 83.6 %; Mean Platelet Volume 9.8 fL (9.4-12.4); Red Cell Distribution Width 13.9 % (11.5-14.5)
[2019-01-31 09:20] LABS: Basophils % 0.3 %; Eosinophils # 0.1 K/mcL (0.0-0.6); Hemoglobin 14.1 g/dL (12.9-16.9); Immature Granulocytes % 0.3 % (0-4); Lymphocytes # 40.4 K/mcL (0.6-4.6); Mean Corpuscular Hemoglobin 27.8 pg (28.0-33.3); Monocytes # 0.6 K/mcL (0.0-1.3); Monocytes % 1.2 %; Neutrophils # 6.9 K/mcL (1.6-8.9); Platelet Count 231 K/mcL (140-400); Red Blood Count 5.07 M/mcL (4.19-5.50); Segmented Neutrophils % 14.3 %
[2019-01-31 09:25] LABS: Basophils # 0.1 K/mcL (0.0-0.2)
[2019-01-31 09:26] LABS: INR 1.4; Prothrombin Time 15.7 Seconds (9.4-12.1)
[2019-01-31 09:29] LABS: Activated Partial Thrombo Time 40.3 Seconds (26.0-36.0)
[2019-01-31 09:53] LABS: BUN/Creatinine Ratio 18 (6-26); Blood Urea Nitrogen 17 mg/dL (6-20); Calcium 9.3 mg/dL (8.6-10.3); Carbon Dioxide 23 mEq/L (23-29); Chloride 105 mEq/L (98-107); Glucose 164 mg/dL (70-105); Lipase 15 Units/L (11-82); Osmolality,Calculated 293 (280-300); Potassium 4.2 mEq/L (3.5-5.1); Sodium 139 mEq/L (136-145); Troponin I < 0.03 ng/mL (< 0.04); eGFR For Non-African Americans > 60 (> 60)
[2019-01-31] MEDS ORDERED: *HR* Promethazine 25 MG/ML VIAL IVP ONE (10:10)
[2019-01-31] MEDS ORDERED: Aspirin 325 MG TABLET PO ONE (10:19)
[2019-01-31] MEDS ORDERED: Nitroglycerin 0.4 MG TAB.SUBL SL ONE (10:19)
[2019-01-31] MEDS ORDERED: *HR* HYDROmorphone (PF) 1 MG/ML SYRINGE IVP ONE ×2 (11:01→12:48)
[2019-01-31] MEDS ORDERED: Piperacillin/Tazobactam 3.375 GM in Water for inj. (sterile) 20 ML 20 ML IVP ONE (12:45)
[2019-01-31] MEDS: 0.9 % Sodium Chloride 1,000 ML IVC SCH ×2 (13:10→21:09)
[2019-01-31 13:22] LABS: Alanine Aminotransferase 34 Units/L (7-52); Albumin 4.6 g/dL (3.5-5.7); Albumin/Globulin Ratio 1.6 (1.1-2.2); Alkaline Phosphatase 82 Units/L (34-104); Aspartate Amino Transferase 24 Units/L (13-39); Bilirubin,Direct 0.1 mg/dL (0.0-0.2); Bilirubin,Indirect 0.4 mg/dL (0.0-1.2); Bilirubin,Total 0.5 mg/dL (0.3-1.0); Globulin 2.8 g/dL (2.4-3.5); Total Protein 7.4 g/dL (6.4-8.9)
[2019-01-31] MEDS ORDERED: Naloxone 0.4 MG/ML INJ IVP PRN (13:49)
[2019-01-31] MEDS ORDERED: OXYCODONE Oral CONC 10 MG/0.5 ML ORAL.SYG SL PRN (13:49)
--- NOTE | 2019-01-31 13:49 | Internal Med History&Physical ---
<Jose Whitley - Last Filed: 01/31/19 13:49> Date of Encounter: 01/31/19 Internal Medicine - H&P: HPI History of present illness: Mr. Smith is a 58 year old male Past Med Surg Social Fam HX - Past Medical History Medical history: arthritis, atrial fibrillation, cancer, cardiomyopathy, COPD, coronary artery disease, hyperlipidemia, other Additional medical history: Leukemia, CLL Psychiatric history: no psych history - Past Surgical History Surgical History: herniorrhaphy, orthopedic, other, other Additional surgical history: tendon and ankle repair - Social History Smoking Status: Former smoker Smokeless Tobacco Status: No Alcohol use: none Drug use: none - Family History Brother Living Status: Still Living Hx Family Cardiac Disorders: No Hx Family Respiratory Disorders: No Hx Family Cancer: Yes (CLL) Hx Family GI Disorders: No Hx Family Endocrine Disorder: No Hx Family Neuromuscular Disorders: No Hx Family Neurologic Disorders: No Hx Family HEENT Disorders: No Hx Family Autoimmune Disorders: No Mother Family Member Ethnicity: Non- Living Status: Hx Family Cardiac Disorders: Yes (CABG, AFIB) Hx Family Respiratory Disorders: Yes (COPD) Hx Family Cancer: No Hx Family GI Disorders: No Hx Family Endocrine Disorder: Yes (renal diease) Hx Family Neuromuscular Disorders: No Hx Family Neurologic Disorders: No Hx Family HEENT Disorders: No Hx Family Autoimmune Disorders: No Father Family Member Ethnicity: Non- Living Status: Still Living Hx Family Cardiac Disorders: Yes (bad valve, aneysum heart stents, [place]) Hx Family Respiratory Disorders: No Hx Family Cancer: No Hx Family GI Disorders: No Hx Family Endocrine Disorder: No Hx Family Neuromuscular Disorders: No Hx Family Neurologic Disorders: No Hx Family HEENT Disorders: No Hx Family Autoimmune Disorders: No Internal Medicine - H&P: Meds Tamsulosin [Flomax] 0.4 mg PO DAILY 04/13/16 [History] Rivaroxaban [Xarelto] 20 mg PO DAILY 06/10/16 [History] Diltiazem CD (24hr) [Cardizem CD] 120 mg PO DAILY 05/17/18 [History] Dofetilide [Tikosyn] 500 mcg PO BID 06/24/18 [History] Allergy/AdvReac Type Severity Reaction Status Date / Time No Known Allergies Allergy Verified 11/15/18 11:20 All Systems PM: A 10-system review of systems was performed and is negative for pertinent findings except as documented above in the HPI. - Constitutional Vitals: Temp Pulse Resp BP Pulse Ox 97.7 F 62 16 153/88 99 01/31/19 08:45 01/31/19 12:47 01/31/19 12:47 01/31/19 12:47 01/31/19 12:47 Internal Med - H&P Results - Labs CBC & Chem 7: 01/31/19 09:01 01/31/19 09:01 Labs: Short CBC 01/31/19 Range/Units 09:01 WBC 48.3 H* (4.3-11.1) K/mcL Hgb 14.1 (12.9-16.9) g/dL Hct 44.1 (37.5-50.1) % Plt Count 231 (140-400) K/mcL Neutrophils # 6.9 (1.6-8.9) K/mcL BMP 01/31/19 09:01 Sodium 139 Potassium 4.2 Chloride 105 Carbon Dioxide 23 BUN 17 Creatinine 0.93 Glucose 164 H Calcium 9.3 Cardiac Enzymes 01/31/19 Range/Units 09:01 Troponin I < 0.03 (< 0.04) ng/mL Liver Function 01/31/19 Range/Units 09:01 Total Bilirubin 0.5 (0.3-1.0) mg/dL Direct Bilirubin 0.1 (0.0-0.2) mg/dL AST 24 (13-39) Units/L ALT 34 (7-52) Units/L Alkaline Phosphatase 82 (34-104) Units/L Albumin 4.6 (3.5-5.7) g/dL - Impressions ITS Impressions Chest X-Ray 01/31/19 08:58 IMPRESSION: 1. No acute cardiopulmonary process. 2. Indeterminate nodular density involving the right upper lobe appears new or increased in size from prior exam. Chest CT correlation recommended. D/ / 01/31/2019 09:25:56 Rajesh Thomas MD / Maame Steele Interpreting Provider: Rajesh Thomas MD CT Dissection 01/31/19 09:00 IMPRESSION: No dissection identified in the chest abdomen or pelvis. A few very tiny punctate pulmonary nodules appear unchanged compared to prior Cholelithiasis and diverticulosis D/ / Emanuel Guerrero MD / Emanuel Guerrero MD Interpreting Provider: Emanuel Guerrero MD Gallbladder Ultrasound 01/31/19 10:10 IMPRESSION: Cholelithiasis. There is equivocal trace pericholecystic fluid, and the patient was tender on sonographic exam of the gallbladder, raising the question of early cholecystitis Fatty liver D/ / Emanuel Guerrero MD / Emanuel Guerrero MD Interpreting Provider: Emanuel Guerrero MD - Time Spent With Patient Total time spent is greater than 50% in coordination of care (as documented) at patient's floor/unit and/or counseling patient: <Geo Clayton - Last Filed: 01/31/19 16:53> Date of Encounter: 01/31/19 Time of Encounter: 16:00 Internal Medicine - H&P: HPI Chief complaint: abdominal pain Admitted From: Emergency Dept Plans for Post Hospital Care: Home History of present illness: Mr. Smith is a 58 year old male awoke this AM about 4:00 with some chest and abdominal pain. Symptoms worsened and he presented to ED. He stated the symptoms were similar to prior gallbladder attacks and that this one feels worse. He admits to nausea and sweating as well as vomiting. No diarrhea. No fever or chills. Symptoms improved some with treatment in the ED but have recurred. He is nausea and complaining of R upper abdominal pain. In ED he had ultrasound with some pericholecystic fluid and positive Vazquez's sign. He denies chest pain with exertion but does have exertional dyspnea. He has had two ablations for a fib and takes Cardizem, Tikosyn and Xarelto. No dizziness with exertion. Last echo in chart was in 2017. Prior LHC in 2016 with minimal one vessel disease. Also has hx of CLL and recently followed up with oncology. He is on no meds for this. Past Med Surg Social Fam HX - Past Medical History Source: patient, old records reviewed - Social History Occupational status: employed Current living situation: With Family Activity Level: Independent ambulation All Systems PM: A 10-system review of systems was performed and is negative for pertinent find ings except as documented above in the HPI. - Constitutional Constitutional: fatigue, malaise - EENT Eyes: no discharge, no pain Ears: no decreased hearing Nose, mouth and throat: no dry mouth, no mouth pain - Cardiovascular Cardiovascular ROS IM: dyspnea, dyspnea on exertion, irregular heart rhythm, no chest pain, no claudication, no diaphoresis, no lightheadedness, no palpitations, no paroxysmal nocturnal dyspnea - Respiratory Respiratory: dyspnea, dyspnea on exertion, no cough, no hemoptysis, no wheezing, no chest congestion - Gastrointestinal Gastrointestinal: nausea, vomiting, no change in bowel habits, no diarrhea - Genitourinary Genitourinary ROS male: no dysuria, no urinary hesitancy - Musculoskeletal Musculoskeletal ROS IM: no arthralgias, no muscle cramps - Integumentary Integumentary IM: no erythema, no rash - Neurological Neurological ROS: no confusion, no numbness, no tremor(s) - Endocrine Endocrine IM: no excessive sweating - Hematologic/Lymphatic Hematologic/Lymphatic: no easy bleeding - Allergic/Immunologic Allergic/Immunologic: no itchy eyes - Constitutional Vitals: Temp Pulse Resp BP Pulse Ox 99 F 70 16 125/68 97 01/31/19 15:09 01/31/19 15:09 01/31/19 15:09 01/31/19 15:09 01/31/19 15:09 General appearance: Present: A&O X 3, answers questions appropriately Exam: See below - Head Head exam: Present: atraumatic, normocephalic - Eye Eye exam: Present: EOMI, conjuntiva pink - ENT ENT exam: Present: mucous membranes dry - Neck Neck exam general surgery: Present: normal inspection. Absent: thyromegaly - Respiratory Respiratory exam: Present: CTAB. Absent: decreased breath sounds, rales, rhonchi, wheezes - Cardiovascular Cardiovascular exam: Present: RRR. Absent: tachycardia - GI/Abdominal GI/Abdominal exam: Present: distended, soft, tenderness (RUQ area. No peritoneal signs) - Extremities Exam Extremities exam: Present: warm. Absent: tenderness Additional comments: Edema present bilaterally. - Neurological Exam Neurological exam: Present: alert, oriented X3, no focal deficits - Skin Skin exam: Present: dry, warm. Absent: rash Internal Med - H&P Results - Labs CBC & Chem 7: 01/31/19 09:01 01/31/19 09:01 Labs: Short CBC 01/31/19 Range/Units 09:01 WBC 48.3 H* (4.3-11.1) K/mcL Hgb 14.1 (12.9-16.9) g/dL Hct 44.1 (37.5-50.1) % Plt Count 231 (140-400) K/mcL Neutrophils # 6.9 (1.6-8.9) K/mcL BMP 01/31/19 09:01 Sodium 139 Potassium 4.2 Chloride 105 Carbon Dioxide 23 BUN 17 Creatinine 0.93 Glucose 164 H Calcium 9.3 Cardiac Enzymes 01/31/19 Range/Units 09:01 Troponin I < 0.03 (< 0.04) ng/mL Liver Function 01/31/19 Range/Units 09:01 Total Bilirubin 0.5 (0.3-1.0) mg/dL Direct Bilirubin 0.1 (0.0-0.2) mg/dL AST 24 (13-39) Units/L ALT 34 (7-52) Units/L Alkaline Phosphatase 82 (34-104) Units/L Albumin 4.6 (3.5-5.7) g/dL - EKG Data -: EKG Interpreted by Myself EKG shows normal: sinus rhythm, ST-T waves (nonspecific) Rate: bradycardia - EKG Data Prior EKG available for review: no - Impressions ITS Impressions Chest X-Ray 01/31/19 08:58 IMPRESSION: 1. No acute cardiopulmonary process. 2. Indeterminate nodular density involving the right upper lobe appears new or increased in size from prior exam. Chest CT correlation recommended. D/ / 01/31/2019 09:25:56 Rajesh Thomas MD / Maame Steele Interpreting Provider: Rajesh Thomas MD CT Dissection 01/31/19 09:00 IMPRESSION: No dissection identified in the chest abdomen or pelvis. A few very tiny punctate pulmonary nodules appear unchanged compared to prior Cholelithiasis and diverticulosis D/ / Emanuel Guerrero MD / Emanuel Guerrero MD Interpreting Provider: Emanuel Guerrero MD Gallbladder Ultrasound 01/31/19 10:10 IMPRESSION: Cholelithiasis. There is equivocal trace pericholecystic fluid, and the patient was tender on sonographic exam of the gallbladder, raising the question of early cholecystitis Fatty liver D/ / Emanuel Guerrero MD / Emanuel Guerrero MD Interpreting Provider: Emanuel Guerrero MD - Assessment and Plan (1) Acute cholecystitis Current Visit: Yes Status: Acute Assessment and plan: Pt with known history of cholelithiasis. Presented to ED with abdominal pain similar to prior episodes of gallbladder "attacks" Admit to med surg Pain control with oxycodone and Toradol Surgical consult - NPO midnight Phenergan for nausea Currently on IV Zosyn. (2) Chronic lymphocytic leukemia Current Visit: Yes Status: Chronic Assessment and plan: Pt with hx of CLL and follows with oncology. Currently no symptoms. WBC elevat ed but stable Plan Follow. (3) Paroxysmal atrial fibrillation Current Visit: No Status: Chronic Assessment and plan: Pt has hx of Parox a fib s/p ablation x 2. Currently on Tikosyn, Cardizem and Xarelto. At this time will order echo to eval LV function Continue Cardizem and Tikosyn Consult cardiology for clearance and meds (4) Obstructive sleep apnea Current Visit: No Status: Chronic Assessment and plan: Continue home CPAP (5) COPD (chronic obstructive pulmonary disease) Current Visit: No Status: Chronic Assessment and plan: Currently no symptoms except chronic dyspnea. PRN aerosols ordered. Qualifiers: COPD type: chronic bronchitis Chronic bronchitis type: simple Qualified Code(s): J41.0 - Simple chronic bronchitis (6) Obesity (BMI 30-39.9) Current Visit: No Status: Chronic Assessment and plan: Chronic issue (7) BPH (benign prostatic hyperplasia) Current Visit: Yes Status: Chronic Assessment and plan: Continue Tamsulosin Qualifiers: Lower urinary tract symptom presence: symptoms absent Qualified Code(s): N40.0 - Benign prostatic hyperplasia without lower urinary tract symptoms - Time Spent With Patient Total time spent is greater than 50% in coordination of care (as documented) at patient's floor/unit and/or counseling patient:
--- NOTE | 2019-01-31 15:33 | AcuteCare Surgery Consult Note ---
Date of Encounter: 01/31/19 Time of Encounter: 15:30 Assessment and Plan (1) Acute cholecystitis Current Visit: Yes Status: Acute Pt diagnosis of early acute cholecystitis with symptomatic cholelithiasis is discussed. Laparoscopic Cholecystectomy is recommended. Procedure for the surgery, risks and benefits are discussed in detail. Possible known complications for Laparoscopic Cholecystectomy are bleeding, infection, bile duct injury, bile leak, small intestine or stomach injury, stroke, DVT/PE, [place] or . Pt understands these risks, which in this case are . Pt wishes to proceed with surgery as soon as possible. Informed consent is obtained. Pt condition is stable. Surgery is scheduled. Hold ASA and xarelto. Plan for OR tomorrow. (2) Atrial fibrillation Current Visit: No Status: Chronic Hold xarelto and aspirin Qualifiers: Qualified Code(s): I48.0 - Paroxysmal atrial fibrillation (3) Chronic lymphocytic leukemia Current Visit: Yes Status: Chronic Stable History of Present Illness Consult date: 01/31/19 Reason for consult: gallstones (with acute cholecystitis) Requesting physician: Zach Shah History of present illness: This 58 y/o male pt presents to [facility] c/o severe RUQ abdominal pain. Pt reports pain is severe and unrelenting. Pt c/o epigastric pain as well. Pt reports pain radiates into back. Pt reports intractible nausea and vomiting. Pt denies changes in BM. Pt denies CP or SOB. Pt denies fever. Past Med Surg Social Fam HX - Past Medical History Medical history: arthritis, atrial fibrillation, cancer, cardiomyopathy, COPD, coronary artery disease, hyperlipidemia, other Additional medical history: Leukemia, CLL Psychiatric history: no psych history - Past Surgical History Surgical History: herniorrhaphy, orthopedic, other, other Additional surgical history: tendon and ankle repair - Social History Smoking Status: Former smoker Smokeless Tobacco Status: No Alcohol use: none Drug use: none - Family History Brother Living Status: Still Living Hx Family Cardiac Disorders: No Hx Family Respiratory Disorders: No Hx Family Cancer: Yes (CLL) Hx Family GI Disorders: No Hx Family Endocrine Disorder: No Hx Family Neuromuscular Disorders: No Hx Family Neurologic Disorders: No Hx Family HEENT Disorders: No Hx Family Autoimmune Disorders: No Mother Family Member Ethnicity: Non- Living Status: Hx Family Cardiac Disorders: Yes (CABG, AFIB) Hx Family Respiratory Disorders: Yes (COPD) Hx Family Cancer: No Hx Family GI Disorders: No Hx Family Endocrine Disorder: Yes (renal diease) Hx Family Neuromuscular Disorders: No Hx Family Neurologic Disorders: No Hx Family HEENT Disorders: No Hx Family Autoimmune Disorders: No Father Family Member Ethnicity: Non- Living Status: Still Living Hx Family Cardiac Disorders: Yes (bad valve, aneysum heart stents, [place]) Hx Family Respiratory Disorders: No Hx Family Cancer: No Hx Family GI Disorders: No Hx Family Endocrine Disorder: No Hx Family Neuromuscular Disorders: No Hx Family Neurologic Disorders: No Hx Family HEENT Disorders: No Hx Family Autoimmune Disorders: No Medications and Allergies Tamsulosin [Flomax] 0.4 mg PO DAILY 04/13/16 [History] Rivaroxaban [Xarelto] 20 mg PO DAILY 06/10/16 [History] Diltiazem CD (24hr) [Cardizem CD] 120 mg PO DAILY 05/17/18 [History] Dofetilide [Tikosyn] 500 mcg PO BID 06/24/18 [History] Allergy/AdvReac Type Severity Reaction Status Date / Time No Known Allergies Allergy Verified 11/15/18 11:20 Review of Systems All systems PM: The remainder of the systems were reviewed and are negative - Constitutional as per HPI, no anorexia, no chills, no fatigue, no fever(s), no night sweats - EENT Nose, mouth and throat: no dry mouth, no dysphagia, no nasal congestion, no nasal discharge, no sinus pain, no sinus pressure, no sore throat - Cardiovascular no chest pain, no diaphoresis, no dyspnea, no edema - Respiratory no cough, no dyspnea, no wheezing - Gastrointestinal abdominal pain, belching, bloating, heartburn, nausea, no constipation, no diar terra, no vomiting - Genitourinary no dysuria, no flank pain, no urinary frequency - Musculoskeletal back pain, no joint swelling, no limited range of motion, no neck pain - Integumentary no dry skin, no pruritus, no rash, no wounds, no jaundice - Neurological no dizziness, no focal weakness, no weakness - Psychiatric no anxiety, no depression - Hematologic/Lymphatic other (+hx CLL), no easy bleeding, no easy bruising General Surgery Exam Initial Vital Signs Temp Pulse Resp BP Pulse Ox 97.7 F 85 16 139/86 98 01/31/19 08:45 01/31/19 08:45 01/31/19 08:45 01/31/19 08:45 01/31/19 08:45 - General physical appearance well developed, well nourished, no distress, moderate pain - Eyes PERRL, normal ocular movement. negative: icteric - ENT normal mucosa, no congestion. negative: nasal discharge - Neck no masses, no lymphadectomy, no venous distension - Respiratory normal respiratory effort, clear to auscultation - Cardiovascular Cardiovascular exam: Present: RRR. Absent: murmurs - Abdomen Abdomen general surgery: Present: bowel sounds present, soft, tender, guarding. Absent: rebound Abdominal Tenderness: Present: RUQ - Genitourinary Present: normal penis with no external lesions - Integumentary Integumentary general surgery: Present: warm and dry - Neurologic Present: CN 2-12 grossly intact, normal coordination - Musculoskeletal Present: normal posture - Psychiatric Psychiatric general surgery: Present: A&Ox3, appropriate Exam Initial Vital Signs Temp Pulse Resp BP Pulse Ox 97.7 F 85 16 139/86 98 01/31/19 08:45 01/31/19 08:45 01/31/19 08:45 01/31/19 08:45 01/31/19 08:45 Results - Labs 01/31/19 09:01 01/31/19 09:01 Abnormal lab results WBC 48.3 K/mcL (4.3-11.1) H* 01/31/19 09:01 MCH 27.8 pg (28.0-33.3) L 01/31/19 09:01 40.4 K/mcL (0.6-4.6) H 01/31/19 09:01 PT 15.7 Seconds (9.4-12.1) H 01/31/19 09:01 APTT 40.3 Seconds (26.0-36.0) H 01/31/19 09:01 Glucose 164 mg/dL (70-105) H 01/31/19 09:01 Diabetes panel 01/31/19 Range/Units 09:01 Sodium 139 (136-145) mEq/L Potassium 4.2 (3.5-5.1) mEq/L Chloride 105 (98-107) mEq/L Carbon Dioxide 23 (23-29) mEq/L BUN 17 (6-20) mg/dL Creatinine 0.93 (0.70-1.30) mg/dL Glucose 164 H (70-105) mg/dL Calcium 9.3 (8.6-10.3) mg/dL AST 24 (13-39) Units/L ALT 34 (7-52) Units/L Alkaline Phosphatase 82 (34-104) Units/L Albumin 4.6 (3.5-5.7) g/dL Calcium panel 01/31/19 Range/Units 09:01 Calcium 9.3 (8.6-10.3) mg/dL Albumin 4.6 (3.5-5.7) g/dL Pituitary panel 01/31/19 Range/Units 09:01 Sodium 139 (136-145) mEq/L Potassium 4.2 (3.5-5.1) mEq/L Chloride 105 (98-107) mEq/L Carbon Dioxide 23 (23-29) mEq/L BUN 17 (6-20) mg/dL Creatinine 0.93 (0.70-1.30) mg/dL Glucose 164 H (70-105) mg/dL Calcium 9.3 (8.6-10.3) mg/dL Adrenal panel 01/31/19 Range/Units 09:01 Sodium 139 (136-145) mEq/L Potassium 4.2 (3.5-5.1) mEq/L Chloride 105 (98-107) mEq/L Carbon Dioxide 23 (23-29) mEq/L BUN 17 (6-20) mg/dL Creatinine 0.93 (0.70-1.30) mg/dL Glucose 164 H (70-105) mg/dL Calcium 9.3 (8.6-10.3) mg/dL Total Bilirubin 0.5 (0.3-1.0) mg/dL AST 24 (13-39) Units/L ALT 34 (7-52) Units/L Alkaline Phosphatase 82 (34-104) Units/L Albumin 4.6 (3.5-5.7) g/dL All other labs normal. - Imaging CT scan - chest: image reviewed (+gallstones) US - abdomen: image reviewed (+Vazquez's sign, +cholelithiasis, equivocal pericholecystic fluid) Consult Discharge Plan - Plan Referrals: Becky Davis MD [Primary Care Provider] -
[2019-01-31] MEDS ORDERED: Ketorolac 30 MG/ML VIAL IVP ONE (16:01)
[2019-01-31] MEDS ORDERED: *HR* Promethazine 25 MG/ML VIAL IVP PRN (16:01)
[2019-01-31] MEDS: OXYCODONE Oral CONC 10 MG/0.5 ML ORAL.SYG SL PRN ×2 (16:37→21:10)
[2019-01-31] MEDS: Acetaminophen IV 1,000 MG/100 ML INFUS..BTL IVPB SCH ×2 (18:48→23:21)
[2019-01-31] MEDS: Piperacillin/Tazobactam 3.375 GM in 0.9 % Sodium Chloride Mini Bag 100 ML IVPB SCH (21:09)
--- NOTE | 2019-02-01 02:51 | Event Note ---
Date of Encounter: 02/01/19 Time of Encounter: 01:22 Alerted by pts. nurse GURVINDER eRyes that the pt. was reporting suprapubic discomfort and urinary retention. Reports he has hx of this. Pt. is admitted w/gallbladder sx and plan is for laparoscopic cholecystectomy today. Bladder scans ordered PRN which showed >848. Juarez catheter ordered w/remove w/provider order. Once Juarez placed, 1200 out. Pt. reports discomfort has now resolved. Juarez to remain in place for now d/t acute urinary retention and hx. Strict I&O ordered. Nurse instructed to continue monitoring the pt. closely and alert me immediately of any adverse changes.
[2019-02-01 03:50] LABS: Mean Corpuscular HGB Conc 32.1 g/dL (31.6-35.5); Red Cell Distribution Width 13.9 % (11.5-14.5)
[2019-02-01 03:51] LABS: Basophils # 0.1 K/mcL (0.0-0.2); Basophils % 0.1 %; Eosinophils # 0.2 K/mcL (0.0-0.6); Eosinophils % 0.3 %; Hematocrit 39.3 % (37.5-50.1); Hemoglobin 12.6 g/dL (12.9-16.9); Immature Granulocytes % 0.3 % (0-4); Lymphocytes # 38.4 K/mcL (0.6-4.6); Lymphocytes % 78.3 %; Mean Corpuscular Volume 87.3 fL (83.0-100.0); Monocytes # 1.1 K/mcL (0.0-1.3); Monocytes % 2.2 %; Neutrophils # 9.2 K/mcL (1.6-8.9); Nucleated Red Blood Cells 0.2 /100 WBC (0); Platelet Count 203 K/mcL (140-400); Segmented Neutrophils % 18.8 %
[2019-02-01 03:58] LABS: INR 1.8; Prothrombin Time 20.2 Seconds (9.4-12.1)
[2019-02-01 04:04] LABS: Alanine Aminotransferase 26 Units/L (7-52); Albumin 3.9 g/dL (3.5-5.7); Albumin/Globulin Ratio 1.8 (1.1-2.2); Alkaline Phosphatase 69 Units/L (34-104); Aspartate Amino Transferase 16 Units/L (13-39); BUN/Creatinine Ratio 12 (6-26); Bilirubin,Total 0.7 mg/dL (0.3-1.0); Blood Urea Nitrogen 11 mg/dL (6-20); Calcium 8.4 mg/dL (8.6-10.3); Carbon Dioxide 26 mEq/L (23-29); Chloride 104 mEq/L (98-107); Chol/HDL Ratio 5.9 (0-4.9); Cholesterol 164 mg/dL (< 200); Globulin 2.2 g/dL (2.4-3.5); Glucose 116 mg/dL (70-105); HDL Cholesterol 28 mg/dL (40-59); LDL Cholesterol,Calculated 117 mg/dL (0-99); Magnesium 1.7 mg/dL (1.6-2.6); Osmolality,Calculated 282 (280-300); Potassium 3.6 mEq/L (3.5-5.1); Sodium 136 mEq/L (136-145); Total Protein 6.1 g/dL (6.4-8.9); Triglycerides 95 mg/dL (< 150); eGFR For Non-African Americans > 60 (> 60)
[2019-02-01 04:16] LABS: Platelet Estimate Normal (Normal); Reactive Lymphocytes Present (Not Present); Smudge Cells Present (Not Present)
[2019-02-01] MEDS: Acetaminophen IV 1,000 MG/100 ML INFUS..BTL IVPB SCH ×4 (05:05→23:35)
[2019-02-01] MEDS: 0.9 % Sodium Chloride 1,000 ML IVC SCH ×3 (05:06→21:27)
[2019-02-01] MEDS: Piperacillin/Tazobactam 3.375 GM in 0.9 % Sodium Chloride Mini Bag 100 ML IVPB SCH ×2 (05:06→21:28)
--- NOTE | 2019-02-01 08:14 | Internal Med Progress Note ---
<Geo Clayton - Last Filed: 02/01/19 16:59> Hospitalist Progress Note - Encounter Date of Encounter: 02/01/19 - Exam Vitals: Temp Pulse Resp BP Pulse Ox 99.0 F 68 16 126/68 94 02/01/19 16:43 02/01/19 16:43 02/01/19 16:43 02/01/19 16:43 02/01/19 16:43 - Assessment and Plan (1) Acute cholecystitis Current Visit: Yes Status: Acute (2) Chronic lymphocytic leukemia Current Visit: Yes Status: Chronic (3) Paroxysmal atrial fibrillation Current Visit: No Status: Chronic (4) Obstructive sleep apnea Current Visit: No Status: Chronic (5) COPD (chronic obstructive pulmonary disease) Current Visit: No Status: Chronic (6) Obesity (BMI 30-39.9) Current Visit: No Status: Chronic (7) BPH (benign prostatic hyperplasia) Current Visit: Yes Status: Chronic - Time Spent with Patient Total time spent is greater than 50% in coordination of care (as documented) at patient's floor/unit and/or counseling patient: Internal Medicine: Result - Labs CBC & Chem 7: 02/01/19 03:10 02/01/19 03:10 Labs: Short CBC 02/01/19 Range/Units 03:10 WBC 49.0 H* (4.3-11.1) K/mcL Hgb 12.6 L D (12.9-16.9) g/dL Hct 39.3 (37.5-50.1) % Plt Count 203 (140-400) K/mcL Neutrophils # 9.2 H (1.6-8.9) K/mcL BMP 02/01/19 03:10 Sodium 136 Potassium 3.6 Chloride 104 Carbon Dioxide 26 BUN 11 Creatinine 0.91 Glucose 116 H Calcium 8.4 L Liver Function 02/01/19 Range/Units 03:10 Total Bilirubin 0.7 (0.3-1.0) mg/dL AST 16 (13-39) Units/L ALT 26 (7-52) Units/L Alkaline Phosphatase 69 (34-104) Units/L Albumin 3.9 (3.5-5.7) g/dL - ABG Interpretation ABG results: PT/INR, D-dimer PT 20.2 Seconds (9.4-12.1) H 02/01/19 03:10 - Impressions Impressions Chest X-Ray 01/31/19 08:58 IMPRESSION: 1. No acute cardiopulmonary process. 2. Indeterminate nodular density involving the right upper lobe appears new or increased in size from prior exam. Chest CT correlation recommended. D/ / 01/31/2019 09:25:56 Rajesh Thomas MD / Maame Steele Interpreting Provider: Rajesh Thomas MD Consult Discharge Plan - Plan Referrals: Becky Davis MD [Primary Care Provider] - - Attending Attestation I examined this patient and my medical decision-making was reviewed with the Resident Physician on 02/01/19. I agree with the documented findings, disposition and treatment plan as described except to the extent set forth below. Mr Smith is currently admitted for acute cholecystitis. He is now s/p lap yimi. He remains moderate to high risk due to potential for worsening clinical status. Mr Smith has returned from surgery. He says he feels well. Wants mild pain med and stool softener. Exam alert Comfortable Mucus membranes dry Heart not tachy at this time No wheeze abd soft I/P 1. Acute cholecystitis - s/p lap yimi. Doing well post op 2. Parox a fib - stable. Will resume Xarelto when OK with surgery 3. CLL - WBC at baseline. Further diagnoses and plan as above Anticipate d/c tomorrow. <Jose Whitley - Last Filed: 02/01/19 20:15> Hospitalist Progress Note - Encounter Date of Encounter: 02/01/19 Time of Encounter: 08:45 - Subjective Interval History: The patient is resting in bed at time of examination. He is lying on his left side and remains uncomfortable. He says that his abdomen still hurts. It is colicky in nature, however there is a constant pain. He says that he does have gas, however he has not been having diarrhea. There is a smell in the room that does resemble infectious diarrhea. - Exam Vitals: Temp Pulse Resp BP Pulse Ox 98.6 F 55 19 158/80 97 02/01/19 07:18 02/01/19 07:18 02/01/19 07:18 02/01/19 07:18 02/01/19 07:18 Exam: Gen: Vitals noted. No acute distress. Eyes: anicteric sclerae, moist conjunctivae; no lid-lag; Pupils equal and reactive to light HENT: Atraumatic; oropharynx clear with moist mucous membranes and no mucosal ulcerations; normal hard and soft palate Neck: Trachea midline; supple, no thyromegaly or lymphadenopathy Cardiac: RRR, no murmur, +S1/S2 Pulmonary: CTA bilaterally, no wheezes, rales or rhonchi, equal chest expansion Abdomen: soft, mild tenderness to palpation in the right upper quadrant, voluntary guarding. No masses or hepatosplenomegaly MSK: ROM intact, no joint swelling noted Extremities: no BLE edema, nontender calf, no cyanosis or clubbing Skin: Normal temperature, turgor and texture; no rash, ulcers or subcutaneous nodules Neuro: moves all extremities, no focal deficits. Psych: Appropriate mood and behavior. A&Ox3 - Assessment and Plan (1) Acute cholecystitis Current Visit: Yes Status: Acute Assessment and Plan: Pt with known history of cholelithiasis. Presented to ED with abdominal pain similar to prior episodes of gallbladder "attacks" Pain control with oxycodone and Toradol Surgical consult - NPO, plan for surgery today Phenergan for nausea Currently on IV Zosyn. (2) Obstructive sleep apnea Current Visit: No Status: Chronic Assessment and Plan: Continue home CPAP (3) Obesity (BMI 30-39.9) Current Visit: No Status: Chronic Assessment and Plan: Chronic issue (4) Paroxysmal atrial fibrillation Current Visit: No Status: Chronic Assessment and Plan: Pt has hx of Parox a fib s/p ablation x 2. Currently on Tikosyn, Cardizem and Xarelto. Plan for cardiac evaluation prior to surgery however his surgery was rescheduled and he will be taken now. Patient has been bradycardic, hold Tikosyn and cardizem for surgery, resume following. (5) Chronic lymphocytic leukemia Current Visit: Yes Status: Chronic Assessment and Plan: Pt with hx of CLL and follows with oncology. Currently no symptoms. WBC elevated but stable Plan Follow. (6) COPD (chronic obstructive pulmonary disease) Current Visit: No Status: Chronic Assessment and Plan: Currently no symptoms except chronic dyspnea. PRN aerosols ordered. (7) BPH (benign prostatic hyperplasia) Current Visit: Yes Status: Chronic Assessment and Plan: Continue Tamsulosin DVT Prophylaxis: SCDs - Time Spent with Patient Total time spent is greater than 50% in coordination of care (as documented) at patient's floor/unit and/or counseling patient: Internal Medicine: Result - Labs CBC & Chem 7: 02/01/19 03:10 02/01/19 03:10 Labs: Short CBC 01/31/19 02/01/19 Range/Units 09:01 03:10 WBC 48.3 H* 49.0 H* (4.3-11.1) K/mcL Hgb 14.1 12.6 L D (12.9-16.9) g/dL Hct 44.1 39.3 (37.5-50.1) % Plt Count 231 203 (140-400) K/mcL Neutrophils # 6.9 9.2 H (1.6-8.9) K/mcL BMP 01/31/19 02/01/19 09:01 03:10 Sodium 139 136 Potassium 4.2 3.6 Chloride 105 104 Carbon Dioxide 23 26 BUN 17 11 Creatinine 0.93 0.91 Glucose 164 H 116 H Calcium 9.3 8.4 L Cardiac Enzymes 01/31/19 Range/Units 09:01 Troponin I < 0.03 (< 0.04) ng/mL Liver Function 01/31/19 02/01/19 Range/Units 09:01 03:10 Total Bilirubin 0.5 0.7 (0.3-1.0) mg/dL Direct Bilirubin 0.1 (0.0-0.2) mg/dL AST 24 16 (13-39) Units/L ALT 34 26 (7-52) Units/L Alkaline Phosphatase 82 69 (34-104) Units/L Albumin 4.6 3.9 (3.5-5.7) g/dL - ABG Interpretation ABG results: PT/INR, D-dimer PT 20.2 Seconds (9.4-12.1) H 02/01/19 03:10 - Impressions Impressions Chest X-Ray 01/31/19 08:58 IMPRESSION: 1. No acute cardiopulmonary process. 2. Indeterminate nodular density involving the right upper lobe appears new or increased in size from prior exam. Chest CT correlation recommended. D/ / 01/31/2019 09:25:56 Rajesh Thomas MD / Maame Steele Interpreting Provider: Rajesh Thomas MD CT Dissection 01/31/19 09:00 IMPRESSION: No dissection identified in the chest abdomen or pelvis. A few very tiny punctate pulmonary nodules appear unchanged compared to prior Cholelithiasis and diverticulosis D/ / Emanuel Guerrero MD / Emanuel Guerrero MD Interpreting Provider: Emanuel Guerrero MD Gallbladder Ultrasound 01/31/19 10:10 IMPRESSION: Cholelithiasis. There is equivocal trace pericholecystic fluid, and the patient was tender on sonographic exam of the gallbladder, raising the question of early cholecystitis Fatty liver D/ / Emanuel Guerrero MD / Emanuel Guerrero MD Interpreting Provider: Emanuel Guerrero MD <Geo Clayton - Last Filed: 02/01/19 16:59> (5) COPD (chronic obstructive pulmonary disease) Qualifiers: COPD type: chronic bronchitis Chronic bronchitis type: simple Qualified Code(s): J41.0 - Simple chronic bronchitis (7) BPH (benign prostatic hyperplasia) Qualifiers: Lower urinary tract symptom presence: symptoms absent Qualified Code(s): N40.0 - Benign prostatic hyperplasia without lower urinary tract symptoms <Jose Whitley - Last Filed: 02/01/19 20:15> (6) COPD (chronic obstructive pulmonary disease) Qualifiers: COPD type: chronic bronchitis Chronic bronchitis type: simple Qualified Code(s): J41.0 - Simple chronic bronchitis (7) BPH (benign prostatic hyperplasia) Qualifiers: Lower urinary tract symptom presence: symptoms absent Qualified Code(s): N40.0 - Benign prostatic hyperplasia without lower urinary tract symptoms
[2019-02-01] MEDS ORDERED: Diltiazem CD (24hr) 120 MG CAPSULE PO SCH (09:00)
[2019-02-01] MEDS: OXYCODONE Oral CONC 10 MG/0.5 ML ORAL.SYG SL PRN (09:16)
--- NOTE | 2019-02-01 10:40 | Anesthesia Evaluation PreOp ---
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: Denies Any Significant HX Other Medical History: Other (Obese) Anesthesia History: No Prior Anesthetic Complications Alcohol Use: none Drug use: none Medications and Allergies Tamsulosin [Flomax] 0.4 mg PO DAILY 04/13/16 [History] Rivaroxaban [Xarelto] 20 mg PO DAILY 06/10/16 [History] Diltiazem CD (24hr) [Cardizem CD] 120 mg PO DAILY 05/17/18 [History] Dofetilide [Tikosyn] 500 mcg PO BID 06/24/18 [History] Allergy/AdvReac Type Severity Reaction Status Date / Time No Known Allergies Allergy Verified 11/15/18 11:20 - Meds/Allergy Pre-op Review Medications Reviewed: Yes Allergies Reviewed: Yes Beta Blockers on Current Med List: No Anesthesia Results - Labs 02/01/19 03:10 02/01/19 03:10 Laboratory Tests 01/31/19 02/01/19 02/01/19 09:01 03:10 03:10 Hgb 12.6 L D Hct 39.3 Plt Count 203 PT 20.2 H INR 1.8 APTT 40.3 H Sodium Potassium BUN Creatinine 02/01/19 03:10 Hgb Hct Plt Count PT INR APTT Sodium 136 Potassium 3.6 BUN 11 Creatinine 0.91 - Imaging EKG: report reviewed (SR) Additional studies: ECHO 2017 EF 60%, no pulm htn Anesthesia Exam Vital Signs/O2 Sat/Glucose, Most Current Temp Pulse Resp BP Pulse Ox 02/01/19 07:18 98.6 F 55 19 158/80 97 Height: 5'8 Weight: 257 lbs NPO (# of Hours): MN Pain Scale: 0 - HEENT Pupil (Motor): Pupils equal, EOMI Mallampati: III Teeth: Normal Oral Opening: Less than or equal to 3 - JUMPBASTING FACING BASTER LOC: Oriented JUMPBASTING FACING BASTER Motor: Normal RUE, Normal LUE, Normal RLE, Normal LLE, Normal Face JUMPBASTING FACING BASTER Sensory: Normal: RUE, LUE, RLE, LLE, Face - Cardiac Rhythm: Regular Murmur: None JVD: No Carotid Bruit: No - Pulmonary Breath Sounds: bilateral Clear Respiratory Effort: Symmetrical Anesthesia Assess/Plan ASA Score: 3 (HTN Arrhythmia VIDA Obesity) Level of consciousness: Cooperative, Oriented Anesthetic Plan: General Autologous Blood: No Monitoring Plan: Standard Monitors Recovery Plan: PACU (Discussed GA, agrees to proceed)
[2019-02-01] MEDS ORDERED: *HR* HYDROmorphone (PF) 1 MG/ML SYRINGE IVP PRN (10:45)
[2019-02-01] MEDS ORDERED: Dexamethasone 4 MG/ML VIAL IVP ONE ×2 (10:45→14:42)
[2019-02-01] MEDS ORDERED: Ondansetron 4 MG/2 ML VIAL IVP ONE (10:45)
[2019-02-01] MEDS ORDERED: *HR* OxyCODONE Immed Rel 5 MG TABLET PO PRN (10:45)
[2019-02-01] MEDS ORDERED: *HR* Metoprolol 5 MG/5 ML VIAL IVP PRN (10:45)
[2019-02-01] MEDS ORDERED: Acetaminophen IV 1,000 MG/100 ML INFUS..BTL ONE (10:48)
[2019-02-01] MEDS ORDERED: Famotidine 20 MG/2 ML VIAL ONE (10:48)
--- NOTE | 2019-02-01 11:56 | Operative Note ---
Date of procedure: 02/01/19 Pre-op diagnosis: acute cholecystitis with cholelithiasis Post-op diagnosis: same Procedure: Laparoscopic Cholecystectomy Complications: None Surgeon: Marbella Cox Was there an anesthetic assistant present: No Estimated blood loss (cc): 75 Specimen: gallbladder Condition: stable Disposition: PACU Procedure in Detail: This 58 year-old was taken to the operating room and placed in the supine position. The anterior abdominal wall is prepped and draped in the usual sterile fashion. A 1-2 cm curvilinear incision is made in the infraumbilical area and subcutaneous tissue was dissected down to anterior rectus fascia. Fascia is grasped with a Kvng clamp, stay sutures were placed in the fascia is divided. Posterior rectus fascia and peritoneum were elevated and divided in the same manner. A Sasha port was inserted. Exploration of the intraabdominal contents reveals acutelly inflammed gallbladderUnder direct visualization after the injection of 0.5% Marcaine the x3 5 mm ports are inserted in the right subcostal space under direct visualization. The patient is placed in reverse Trendelenburg position and rotated to the left. The gallbladder is grasped and retracted in cephalad direction. It is also grasped and retracted in the late ral direction. The cystic duct was carefully identified circumferentially dissected doubly clipped and divided between clips. The cystic artery is carefully identified and circumferentially dissected and divided between clips. The gallbladder is dissected off the liver bed using electrocautery. Hemostasis was perfected using electrocautery and 3g of Hafsa. The gallbladder is removed from the intra-abdominal cavity using an Endo Catch bag. Copious irrigation is carried out in the intra-abdominal cavity, Pack's pouch and the gallbladder fossa. The pneumoperitoneum was allowed to escape under direct visualization. The ports were removed also under direct visualization. The fascia at the infraumbilical incision is closed using 0 Vicryl sutures. All skin incisions are closed using 4-0 Monocryl subcuticular stitches. Steri-Strips are placed. Sterile dressing is placed. Patient tolerated procedure well was taken to the PACU in good condition.
[2019-02-01] MEDS ORDERED: *HR* Propofol 200 MG/20 ML VIAL IVP ONE (11:59)
[2019-02-01] MEDS ORDERED: *HR* FentaNYL (PF) 100 MCG/2 ML VIAL ONE (11:59)
[2019-02-01] MEDS ORDERED: Lidocaine -MPF 2% 2 ML VIAL ONE (12:03)
[2019-02-01] MEDS ORDERED: *HR* Succinylcholine 200 MG/10 ML VIAL IVP ONE (12:04)
[2019-02-01] MEDS ORDERED: Lidocaine -MPF 4% 5 ML AMPUL ONE (12:04)
[2019-02-01] MEDS ORDERED: Ondansetron 4 MG/2 ML VIAL ONE (12:10)
[2019-02-01] MEDS ORDERED: Dexamethasone 4 MG/ML VIAL ONE (12:10)
[2019-02-01] MEDS ORDERED: *HR* Rocuronium Bromide 50 MG/5 ML VIAL ONE (12:10)
[2019-02-01] MEDS ORDERED: Ketorolac 30 MG/ML VIAL ONE (13:21)
[2019-02-01] MEDS ORDERED: Neostigmine Methylsulfate 3 MG/3 ML SYRINGE ONE (13:22)
--- NOTE | 2019-02-01 13:56 | Event Note ---
Date of Encounter: 02/01/19 Time of Encounter: 14:00 - Cardiology Event Note Consult for preop evaluation, patient currently in surgery. From chart, appears to be acceptable risk. Minimal CAD on previous LHC, has AF on Tikosyn and rate control which would not preclude him undergoing lap yimi. Please call with any questions, thanks.
--- NOTE | 2019-02-01 14:27 | Anesthesia Evaluation Post Op ---
Date of Encounter: 02/01/19 Time of Encounter: 14:27 - Vital Signs Vital Signs: Vital Signs/O2 Sat, Most Current Temp Pulse Resp BP Pulse Ox 98.2 F 62 16 138/77 95 02/01/19 13:53 02/01/19 14:13 02/01/19 14:13 02/01/19 14:13 02/01/19 14:13 - Lungs Lungs: Clear Ascult./Percussion - Airway Airway: Non-obstructed - Cardiovascular Regular Rate - Mental Status Mental Status: Alert & Oriented, Answers Appropriately - Pain Pain Scale: 0 Pain Scale used: Numeric (1 - 10) - Nausea Vomiting Nausea Vomiting: Not Present - Hydration Hydration: Ice chips, Juarez catheter - Discharge PostOp Status: Transfer Patient to floor
[2019-02-01] MEDS ORDERED: Naloxone 0.4 MG/ML INJ IVP PRN (14:42)
[2019-02-01] MEDS ORDERED: OXYCODONE Oral CONC 10 MG/0.5 ML ORAL.SYG SL PRN ×2 (14:42)
[2019-02-01] MEDS ORDERED: *HR* HYDROcodone/Acet 5/325 mg TABLET PO PRN (16:17)
[2019-02-01] MEDS ORDERED: *HR* OxyCODONE/APAP 5/325 TABLET PO PRN (16:41)
[2019-02-01] MEDS ORDERED: Ondansetron 4 MG/2 ML VIAL IVP SCH (18:00)
[2019-02-01] MEDS: Ondansetron 4 MG/2 ML VIAL IVP SCH ×2 (18:12→23:36)
--- NOTE | 2019-02-01 23:00 | Electrocardiograph Report ---
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
[2019-02-02] MEDS: 0.9 % Sodium Chloride 1,000 ML IVC SCH (05:30)
[2019-02-02] MEDS: Piperacillin/Tazobactam 3.375 GM in 0.9 % Sodium Chloride Mini Bag 100 ML IVPB SCH (05:30)
[2019-02-02] MEDS: Acetaminophen IV 1,000 MG/100 ML INFUS..BTL IVPB SCH (05:30)
[2019-02-02] MEDS: Ondansetron 4 MG/2 ML VIAL IVP SCH (05:50)
--- NOTE | 2019-02-02 08:28 | AcuteCareSurgery Progress Note ---
Date of Encounter: 02/02/19 Time of Encounter: 06:30 - Assessment and Plan (1) Acute cholecystitis Current Visit: Yes Status: Acute S/P lap yimi. No heavy lifting or straining >25 lbs for 2 weeks. Follow-up with Acute Care Surgery in 2 weeks. May return to work in 3 days with compliance of physical restrictions. Regular diet. May shower. Remove Band-aids prior to shower. Leave steri-strips in place. Resume Xarelto 02/03/19. (2) Atrial fibrillation Current Visit: No Status: Chronic Qualifiers: Atrial fibrillation type: paroxysmal Qualified Code(s): I48.0 - Paroxysmal atrial fibrillation (3) Chronic lymphocytic leukemia Current Visit: Yes Status: Chronic (4) S/P laparoscopic cholecystectomy Current Visit: Yes Status: Acute Subjective Patient reports: no new complaints, feels better, pain is less, tolerating a regular diet, flatus, afebrile Narrative: POD#1 lap yimi. Objective Vital Signs - Last 8 Hours Temp Pulse Resp BP Pulse Ox 02/02/19 06:50 98.7 F 63 18 118/69 95 02/02/19 03:19 98.9 F 63 18 150/84 95 Intake and Output 02/01/19 02/02/19 02/02/19 23:59 07:59 15:59 Intake Total 1200 / 3125 1200 / 1200 Output Total 400 / 3125 1525 / 1525 Balance 800 / 0 -325 / -325 Intake: IV Fluids 1200 / 3125 1200 / 1200 0.9 % Sodium Chloride 1,000 ML 1000 / 1000 1000 / 1000 @ 125 mls/hr IVC .Q8H SHIREEN Rx#: [id number] Ofirmev 1,000 mg/100 ml 1,000 200 / 200 100 / 100 mg In 100 ml @ 400 mls/hr IVPB Q6HR SHIREEN Rx#:[id number] Zosyn 3.375 GM In 0.9 % Sodium 100 / 100 Chloride (Mini-Bag +) 100 ML @ 25 mls/hr IVPB Q8H SHIREEN Rx#: [id number] Output: Catheter 400 / 2300 1525 / 1525 - General physical appearance no distress, no pain - Eyes PERRL, normal ocular movement - ENT normal mucosa, no congestion - Neck Neck exam: trachea midline, no lymphadectomy, no venous distension - Respiratory normal respiratory effort, clear to auscultation - Cardiovascular Cardiovascular exam: Present: RRR - Abdomen Abdomen: Present: bowel sounds present, soft, tender (as expected post-op) - Incision Incision: Present: clean and dry, intact - Integumentary no rash - Neurologic CN 2-12 grossly intact, normal coordination - Musculoskeletal normal posture - Psychiatric oriented to time, oriented to person, oriented to place - Labs 02/01/19 03:10 02/01/19 03:10 Consult Discharge Plan - Plan Additional Instructions: No heavy lifting or straining >25 lbs for 2 weeks. Follow-up with Acute Care Surgery in 2 weeks. May return to work in 3 days with compliance of physical restrictions. Regular diet. May shower. Remove Band-aids prior to shower. Leave steri-strips in place. Resume Xarelto 02/03/19. Referrals: Becky Davis MD [Primary Care Provider] - Marbella Moraes [Partnered Physician] -
--- NOTE | 2019-02-02 08:29 | Discharge Summary ---
<Jose Whitley - Last Filed: 02/02/19 10:27> - NOTES TO OUTPATIENT PROVIDER Notes to Outpatient Provider: Status post laparoscopic cholecystectomy, continues to have elevated WBC. Hemoglobin had small drop. Will likely need recheck. Orders not resulted at time of discharge: Pending orders 01/31/19 09:01 Culture,Blood [BC] Stat 02/01/19 13:38 Surgical Pathology [PTH] Routine 02/02/19 04:00 Basic Metabolic Panel AM 0400 Complete Blood Count [HEME] AM 0400 Date of Encounter: 02/02/19 Time of Encounter: 09:20 - Discharge Diagnosis (1) Acute cholecystitis Priority: Primary Status: Acute (2) Obstructive sleep apnea Priority: Secondary Status: Chronic (3) Obesity (BMI 30-39.9) Priority: Secondary Status: Chronic (4) Paroxysmal atrial fibrillation Priority: Secondary Status: Chronic (5) Chronic lymphocytic leukemia Priority: Secondary Status: Chronic (6) COPD (chronic obstructive pulmonary disease) Priority: Secondary Status: Chronic Qualifiers: COPD type: chronic bronchitis Chronic bronchitis type: simple Qualified Code(s): J41.0 - Simple chronic bronchitis (7) BPH (benign prostatic hyperplasia) Priority: Secondary Status: Chronic Qualifiers: Lower urinary tract symptom presence: symptoms absent Qualified Code(s): N40.0 - Benign prostatic hyperplasia without lower urinary tract symptoms Hospital course: Mr. Smith is a 58 year old male with history of atrial fibrillation on Xarel, [facility] who presented to the ED with abdominal pain. The patient apparently has had significant abdominal pain the past and typically calls them gallbladder attacks. He did have an ultrasound which demonstrated her cholecystic fluid and a positive Vazquez sign and was considered to have acute cholecystitis. He was admitted to medicine and was taken to the OR the following day by acute care surgery who did a laparoscopic cholecystectomy. He was watched overnight and had no acute problems. The patient does have a chronically elevated WBC secon raquel to his CLL, however he showed no signs of active serious infection. He did receive IV Zosyn while he was in the hospital due to concern for possible infection of gallbladder, however following removal he improved. He will be discharged without antibiotics, and 3 days of pain control with narcotics. The patient has been advised to resume anticoagulation on 02/03/19. Discharge discussed with: patient, family, nurse, lifestyle consultant - Time Spent with Patient Total time spent providing and/or coordinating discharge services: - Discharge Medications Prescriptions: New Docusate [Colace] 100 mg PO BID #30 capsule HYDROcodone/Acet 5/325 mg [[place] 5-325 mg] 1 tab PO Q6HR PRN 3 Days #9 tablet PRN Reason: Analgesia Continued Dofetilide [Tikosyn] 500 mcg PO Q12H No Action Diltiazem CD (24hr) [Cardizem CD] 120 mg PO QAM DiphenhydraMINE [Benadryl] 25 - 50 mg PO HS PRN PRN Reason: Sleep Rivaroxaban [Xarelto] 20 mg PO QAM Tamsulosin [Flomax] 0.4 mg PO HS Home Medications: Dofetilide [Tikosyn] 500 mcg PO Q12H 06/24/18 [History] Diltiazem CD (24hr) [Cardizem CD] 120 mg PO QAM 02/02/19 [History] DiphenhydraMINE [Benadryl] 25 - 50 mg PO HS PRN 02/02/19 [History] Docusate [Colace] 100 mg PO BID #30 capsule 02/02/19 [Rx] HYDROcodone/Acet 5/325 mg [[place] 5-325 mg] 1 tab PO Q6HR PRN 3 Days #9 tablet 02/02/19 [Rx] Rivaroxaban [Xarelto] 20 mg PO QAM 02/02/19 [History] Tamsulosin [Flomax] 0.4 mg PO HS 02/02/19 [History] Allergies/Adverse Reactions: Allergy/AdvReac Type Severity Reaction Status Date / Time No Known Allergies Allergy Verified 02/02/19 11:53 Date of admission: 01/31/19 14:07 Primary care physician: Becky Davis MD Consults: 01/31/19 13:06 Consult to Surgery [CONS] Stat Consulting Provider: Acute Care Surgery Reason for Consult: Acute cholecystitis Call Completed: Yes 01/31/19 16:04 Consult to Respiratory Therapy [CONS] Routine Reason for Consult: Patient wears CPAP at night Call Completed: Yes Discharging clinician: Jose Whitley Anticipated date of discharge: 02/02/19 - Constitutional Vitals: Temp Pulse Resp BP Pulse Ox 98.7 F 63 18 118/69 95 02/02/19 06:50 02/02/19 06:50 02/02/19 06:50 02/02/19 06:50 02/02/19 06:50 General appearance: Present: A&O X 3, answers questions appropriately Exam: Gen: Vitals noted. No acute distress. Eyes: anicteric sclerae, moist conjunctivae; no lid-lag; Pupils equal and reactive to light HENT: Atraumatic; oropharynx clear with moist mucous membranes and no mucosal ul cerations; normal hard and soft palate Neck: Trachea midline; supple, no thyromegaly or lymphadenopathy Cardiac: RRR, no murmur, +S1/S2 Pulmonary: CTA bilaterally, no wheezes, rales or rhonchi, equal chest expansion Abdomen: mild distension which is chronic, mild tenderness to palpation in the right upper quadrant. Bandages in place from surgery. No masses or hepatosplenomegaly MSK: ROM intact, no joint swelling noted Extremities: no BLE edema, nontender calf, no cyanosis or clubbing Skin: Normal temperature, turgor and texture; no rash, ulcers or subcutaneous nodules Neuro: moves all extremities, no focal deficits. Psych: Appropriate mood and behavior. A&Ox3 - Patient Status Disposition: Home, Self-Care Condition: Fair Functional capacity at discharge: independent ambulation - Discharge Instructions Follow Up With: Adi Tarango MD [Partnered Physician] - 02/15/19 9:25 am Becky Davis MD [Primary Care Provider] - Forms: Inpatient Work/School Release Additional Instructions: No heavy lifting or straining >25 lbs for 2 weeks. Follow-up with Acute Care Surgery in 2 weeks. May return to work in 3 days with compliance of physical restrictions. Regular diet. May shower. Remove Band-aids prior to shower. Leave steri-strips in place. Resume Xarelto 02/03/19. - Diet and Activity Activity: increase activity as tolerated, return to work once cleared by your PCP/specialist Diet: advance to your usual diet <Tu Chavez - Last Filed: 02/02/19 12:22> Date of Encounter: 02/02/19 Date of admission: 01/31/19 14:07 Primary care physician: Beckygali Davis MD Consults: 01/31/19 13:06 Consult to Surgery [CONS] Stat Consulting Provider: Acute Care Surgery Reason for Consult: Acute cholecystitis Call Completed: Yes 01/31/19 16:04 Consult to Respiratory Therapy [CONS] Routine Reason for Consult: Patient wears CPAP at night Call Completed: Yes - Patient Status Overall status at discharge: patient is progressing back to baseline - Attending Attestation Patient seen and examined. I agree with the discharge plan as documented above by the resident. In summary, Masood Smtih is a pleasant 58 M w hx CLL, A-Fib on Xarelto, who p/w abd pain, found on RUQ US to have signs suggestive of acute cholecystitis, taken to OR 02/02/2019 by Windy Cox for lap yimi. Tolerated well with improvement in symptoms, no complications. Follow up PCP and GenSurg.
[2019-02-02] MEDS ORDERED: Diltiazem CD (24hr) 120 MG CAPSULE PO SCH (09:00)
[2019-02-02 09:30] LABS: Eosinophils % 0.1 %; Immature Granulocytes % 0.3 % (0-4); Mean Platelet Volume 10.3 fL (9.4-12.4)
[2019-02-02 09:31] LABS: Basophils # 0.1 K/mcL (0.0-0.2); Basophils % 0.2 %; Eosinophils # 0.1 K/mcL (0.0-0.6); Hematocrit 33.7 % (37.5-50.1); Hemoglobin 10.9 g/dL (12.9-16.9); Lymphocytes % 77.5 %; Mean Corpuscular HGB Conc 32.3 g/dL (31.6-35.5); Mean Corpuscular Hemoglobin 28.2 pg (28.0-33.3); Mean Corpuscular Volume 87.1 fL (83.0-100.0); Monocytes % 2.2 %; Neutrophils # 9.2 K/mcL (1.6-8.9); Platelet Count 182 K/mcL (140-400); Red Blood Count 3.87 M/mcL (4.19-5.50); Red Cell Distribution Width 14.4 % (11.5-14.5); Segmented Neutrophils % 19.7 %
[2019-02-02 09:49] LABS: BUN/Creatinine Ratio 16 (6-26); Blood Urea Nitrogen 14 mg/dL (6-20); Calcium 7.9 mg/dL (8.6-10.3); Carbon Dioxide 24 mEq/L (23-29); Chloride 109 mEq/L (98-107); Glucose 115 mg/dL (70-105); Osmolality,Calculated 289 (280-300); Potassium 3.7 mEq/L (3.5-5.1); Sodium 139 mEq/L (136-145); eGFR For Non-African Americans > 60 (> 60)
[2019-02-02 09:53] LABS: Platelet Estimate Normal (Normal); Smudge Cells Present (Not Present)
[2019-02-02 09:54] LABS: Reactive Lymphocytes Present (Not Present)
[2019-02-02 11:08] VITALS: BP 129/69
== END 2019-02-02 12:22 | disposition home or self-care (01) | DRG 418 ==
LOC: 3ANU 08:43 → EMEROOARM 08:43 → SUATTDRO 14:07 → 3ANU 14:14
PROVIDERS: ADMIT Internal Medicine; ATTEND Internal Medicine

== ENCOUNTER 2019-02-11 12:47 | Inpatient (IN) ==
[2019-02-11 14:46] LABS: Hematocrit 43.6 % (37.5-50.1); Hemoglobin 13.7 g/dL (12.9-16.9); Mean Corpuscular HGB Conc 31.4 g/dL (31.6-35.5); Mean Corpuscular Hemoglobin 27.9 pg (28.0-33.3); Mean Corpuscular Volume 88.8 fL (83.0-100.0); Mean Platelet Volume 9.4 fL (9.4-12.4); Platelet Count 365 K/mcL (140-400); Red Blood Count 4.91 M/mcL (4.19-5.50); Red Cell Distribution Width 13.9 % (11.5-14.5)
[2019-02-11 14:54] LABS: White Blood Count 55.2 K/mcL (4.3-11.1)
[2019-02-11 14:55] LABS: Alanine Aminotransferase 87 Units/L (7-52); Albumin 4.3 g/dL (3.5-5.7); Albumin/Globulin Ratio 1.3 (1.1-2.2); Alkaline Phosphatase 122 Units/L (34-104); Amylase 29 Units/L (29-103); Aspartate Amino Transferase 26 Units/L (13-39); BUN/Creatinine Ratio 13 (6-26); Bilirubin,Direct 0.1 mg/dL (0.0-0.2); Bilirubin,Indirect 0.6 mg/dL (0.0-1.2); Bilirubin,Total 0.7 mg/dL (0.3-1.0); Blood Urea Nitrogen 14 mg/dL (6-20); Calcium 9.5 mg/dL (8.6-10.3); Carbon Dioxide 29 mEq/L (23-29); Chloride 101 mEq/L (98-107); Globulin 3.3 g/dL (2.4-3.5); Glucose 113 mg/dL (70-105); Lipase 9 Units/L (11-82); Osmolality,Calculated 285 (280-300); Potassium 4.3 mEq/L (3.5-5.1); Sodium 137 mEq/L (136-145); Total Protein 7.6 g/dL (6.4-8.9); eGFR For African Americans > 60 (> 60); eGFR For Non-African Americans > 60 (> 60)
--- NOTE | 2019-02-11 15:12 | Emergency Department Note ---
Disposition Clinical Impression: Small bowel obstruction, Chronic lymphocytic leukemia Disposition: Admitted As Inpatient Condition: Fair Referrals: Becky Davis MD [Primary Care Provider] - Forms: ED Satisfaction Letter, Work/School Release Time of Disposition: 18:55 General Adult HPI - General Chief complaint: ED Abdominal Pain Stated complaint: poss infection post op Time Seen by Provider: 02/11/19 14:26 Source: patient Nursing Notes Reviewed: Yes Vital Signs Reviewed: Yes - History of Present Illness HPI Narrative: Does have a history of CLL and was admitted on January 24 with laparoscopic cholecystectomy and was then discharged and was improving however over the last 2 or 3 days has had intermittent epigastric abdominal pain and that is the reas on he presented today. He does have a history of atrial fibrillation and does use or alto. His pain had significantly improved and is now intermittent. Has nausea but no vomiting. No fever. No blood in the urine or stool, dysuria or urinary frequency, testicular pain or penile discharge. Social history: Is here with his Pain Scale: 7 - Related Data Home Medications Medication Instructions Recorded Confirmed Dofetilide [Tikosyn] 500 mcg PO Q12H 06/24/18 02/11/19 Diltiazem CD (24hr) [Cardizem CD] 120 mg PO QAM 02/02/19 02/11/19 DiphenhydraMINE [Benadryl] 25 - 50 mg PO HS PRN 02/02/19 02/11/19 Rivaroxaban [Xarelto] 20 mg PO QAM 02/02/19 02/11/19 Tamsulosin [Flomax] 0.4 mg PO HS 02/02/19 02/11/19 Previous Rx's Medication Instructions Recorded Docusate [Colace] 100 mg PO BID #30 capsule 02/02/19 Allergies Allergy/AdvReac Type Severity Reaction Status Date / Time No Known Allergies Allergy Verified 02/11/19 12:48 All systems ED: reviewed and negative except as stated. Past Medical History - Past Medical History Medical history: Reports: arthritis, atrial fibrillation, cancer, cardiomyopathy, COPD, coronary artery disease, hyperlipidemia, other Surgical history: Reports: herniorrhaphy, orthopedic, other, other Psychiatric history: Reports: no psych history - Social History Smoking Status: Former smoker Smokeless Tobacco Status: No Alcohol use: Reports: none Drug use: Reports: none Physical Exam CONSTITUTIONAL: Alert and oriented X3, well-nourished, well appearing, in no apparent distress HEAD: Normocephalic; atraumatic. EYES: PERRL, no scleral icterus. NOSE: The nose is normal in appearance without rhinorrhea RESP: Normal chest excursion with respiration; breath sounds clear and equal bilaterally; no wheezes, rhonchi, or rales CARD: Regular rhythm, without murmurs, rub or gallop ABD: Non-distended; non-tender, soft,without rigidity, rebound or guarding. Well-healed surgical scars without drainage or purulence. Minimal discomfort with palpation right upper quadrant and just slightly more discomfort with palpation epigastric but both are soft without rigidity, rebound, guarding. SKIN: Normal for age and race; warm and dry; no apparent lesions - General General appearance: alert Course Vital Signs Temperature 98.4 F 02/11/19 12:48 Pulse Rate 86 02/11/19 12:48 Respiratory Rate 18 02/11/19 12:48 Blood Pressure 151/90 02/11/19 12:48 O2 Sat by Pulse Oximetry 99 02/11/19 12:48 Temperature 98.4 F 02/11/19 14:12 Pulse Rate 55 02/11/19 17:08 Respiratory Rate 18 02/11/19 17:08 Blood Pressure 113/60 02/11/19 17:08 O2 Sat by Pulse Oximetry 100 02/11/19 17:08 Oxygen Delivery Oxygen Delivery Room Air Medical Decision Making - MDM Narrative Medical decision making narrative: I did review the patient's labs and the patient does have elevated white blood cell count which is minimally higher than past white blood cell count, I did speak with Dr. Delaney we did review the test results and the operative note and decision is to do a CT scan initially there is no bleeding as the patient is on Zaroxolyn so and if this is negative will treat his nausea and have him follow- up in the office with Dr. Yang Cox on Thursday. The patient will receive IV fluids and IV Zofran here. 1527 I did check up on the patient. He is bright and alert and in no distress. CT scan is pending. 1632 I did review the CT results showing a small bowel structure likely from a hernia and I did speak with Dr. Delaney who did come to the emergency department and is seeing the patient at this time the patient will be admitted to his service. 1853 - Medical Records Medical records reviewed: Yes I reviewed the patient's medical records. - Lab Data Lab results reviewed: Yes I reviewed the patient's lab results. Result diagrams: 02/11/19 14:21 02/11/19 14:21 Lab Results 02/11/19 02/11/19 Range/Units 14:21 14:21 WBC 55.2 H* (4.3-11.1) K/mcL RBC 4.91 (4.19-5.50) M/mcL Hgb 13.7 (12.9-16.9) g/dL Hct 43.6 (37.5-50.1) % MCV 88.8 (83.0-100.0) fL MCH 27.9 L (28.0-33.3) pg MCHC 31.4 L (31.6-35.5) g/dL RDW 13.9 (11.5-14.5) % Plt Count 365 (140-400) K/mcL MPV 9.4 (9.4-12.4) fL Seg Neutrophils % 4.0 % Band Neutrophils % 2.0 (0-4) % Lymphocytes % 92.0 % Eosinophils % 2.0 % Neutrophils # 3.3 (1.6-8.9) K/mcL Lymphocytes # 50.8 H (0.6-4.6) K/mcL Eosinophils # 1.1 H (0.0-0.6) K/mcL Reactive Lymphocytes Present A (Not Present) Smudge Cells Present A (Not Present) Platelet Estimate Normal (Normal) Sodium 137 (136-145) mEq/L Potassium 4.3 (3.5-5.1) mEq/L Chloride 101 (98-107) mEq/L Carbon Dioxide 29 (23-29) mEq/L BUN 14 (6-20) mg/dL Creatinine 1.05 (0.70-1.30) mg/dL Est GFR ( Amer) > 60 (> 60) Est GFR (Non-Af Amer) > 60 (> 60) BUN/Creatinine Ratio 13 (6-26) Glucose 113 H (70-105) mg/dL Calculated Osmolality 285 (280-300) Calcium 9.5 (8.6-10.3) mg/dL Total Bilirubin 0.7 (0.3-1.0) mg/dL Direct Bilirubin 0.1 (0.0-0.2) mg/dL Indirect Bilirubin 0.6 (0.0-1.2) mg/dL AST 26 (13-39) Units/L ALT 87 H (7-52) Units/L Alkaline Phosphatase 122 H (34-104) Units/L Serum Total Protein 7.6 (6.4-8.9) g/dL Albumin 4.3 (3.5-5.7) g/dL Globulin 3.3 (2.4-3.5) g/dL Albumin/Globulin Ratio 1.3 (1.1-2.2) Amylase 29 (29-103) Units/L Lipase 9 L (11-82) Units/L - Radiology Data Radiology results reviewed: Yes I reviewed the patient's radiology results. Critical Care Time Critical Care Time: No
[2019-02-11] MEDS ORDERED: Isovue-370 500 ML BOTTLE IVP ONE (15:17)
[2019-02-11 15:18] LABS: Eosinophils # 1.1 K/mcL (0.0-0.6); Lymphocytes # 50.8 K/mcL (0.6-4.6); Neutrophils # 3.3 K/mcL (1.6-8.9); Platelet Estimate Normal (Normal); Reactive Lymphocytes Present (Not Present); Smudge Cells Present (Not Present)
[2019-02-11] MEDS ORDERED: 0.9 % Sodium Chloride 1,000 ML IVC ONE (15:27)
[2019-02-11] MEDS ORDERED: Ondansetron 4 MG/2 ML VIAL IVP ONE (15:27)
--- NOTE | 2019-02-11 20:03 | AcuteCare Surgery Consult Note ---
Date of Encounter: 02/11/19 Time of Encounter: 19:58 Assessment and Plan (1) Small bowel obstruction Current Visit: Yes Status: Acute 58M PMH significant for CLL, atrial fibrillation, cancer, cardiomyopathy, COPD, coronary artery disease with a small bowel obstruction 2/2 umbilical hernia; non peritonea; non septic; NPO IVF IV abx OR for UHR History of Present Illness Consult date: 02/11/19 Reason for consult: abdominal pain History of present illness: 58M PMH significant for atrial fibrillation, cancer, cardiomyopathy, COPD, coronary artery disease, hyperlipidemia s/p prior umbilical hernia, cholecystectomy who presents with 4-5 days of worsening PO intake and nausea and vomiting. No worsening pain, no fevers, chills. IT was reported that during his cholecystectomy that there was difficulty with the entry. A CT scan was obtained, which was reviewed and interpreted by me, which demonstrated a small bowel obstruction with a loop of small bowel which appears to where the point of entry was for the cholecystectomy. Surgery was called for management recommendations. Past Med Surg Social Fam HX - Past Medical History Medical history: arthritis, atrial fibrillation, cancer, cardiomyopathy, COPD, coronary artery disease, hyperlipidemia, other Additional medical history: Leukemia, CLL Psychiatric history: no psych history - Past Surgical History Surgical History: herniorrhaphy, orthopedic, other, other Additional surgical history: Ablation - Social History Smoking Status: Former smoker Smokeless Tobacco Status: No Alcohol use: none Drug use: none - Family History Brother Living Status: Still Living Hx Family Cardiac Disorders: No Hx Family Respiratory Disorders: No Hx Family Cancer: Yes (CLL) Hx Family GI Disorders: No Hx Family Endocrine Disorder: No Hx Family Neuromuscular Disorders: No Hx Family Neurologic Disorders: No Hx Family HEENT Disorders: No Hx Family Autoimmune Disorders: No Mother Family Member Ethnicity: Non- Living Status: Hx Family Cardiac Disorders: Yes (CABG, AFIB) Hx Family Respiratory Disorders: Yes (COPD) Hx Family Cancer: No Hx Family GI Disorders: No Hx Family Endocrine Disorder: Yes (renal diease) Hx Family Neuromuscular Disorders: No Hx Family Neurologic Disorders: No Hx Family HEENT Disorders: No Hx Family Autoimmune Disorders: No Father Family Member Ethnicity: Non- Living Status: Still Living Hx Family Cardiac Disorders: Yes (bad valve, aneysum heart stents, [place]) Hx Family Respiratory Disorders: No Hx Family Cancer: No Hx Family GI Disorders: No Hx Family Endocrine Disorder: No Hx Family Neuromuscular Disorders: No Hx Family Neurologic Disorders: No Hx Family HEENT Disorders: No Hx Family Autoimmune Disorders: No Medications and Allergies Dofetilide [Tikosyn] 500 mcg PO Q12H 06/24/18 [History] Diltiazem CD (24hr) [Cardizem CD] 120 mg PO QAM 02/02/19 [History] DiphenhydraMINE [Benadryl] 25 - 50 mg PO HS PRN 02/02/19 [History] Docusate [Colace] 100 mg PO BID #30 capsule 02/02/19 [Rx] Rivaroxaban [Xarelto] 20 mg PO QAM 02/02/19 [History] Tamsulosin [Flomax] 0.4 mg PO HS 02/02/19 [History] Allergy/AdvReac Type Severity Reaction Status Date / Time No Known Allergies Allergy Verified 02/11/19 12:48 Review of Systems All systems PM: 12 point ROS negative besides HPI findings General Surgery Exam Initial Vital Signs Temp Pulse Resp BP Pulse Ox 98.4 F 86 18 151/90 99 02/11/19 12:48 02/11/19 12:48 02/11/19 12:48 02/11/19 12:48 02/11/19 12:48 - General physical appearance no distress - Eyes PERRL, normal ocular movement - ENT normocephalic - Neck trachea midline, no lymphadectomy - Respiratory normal expansion, normal respiratory effort - Cardiovascular Cardiovascular exam: Present: RRR - Abdomen Abdomen general surgery: Present: soft, non tender Hernia: Present: incarcerated, umbilical - Incision Incision: Present: clean and dry, intact - Integumentary Integumentary general surgery: Present: warm and dry, no abnormal pigmentation - Neurologic Present: CN 2-12 grossly intact - Musculoskeletal Present: normal posture - Psychiatric Psychiatric general surgery: Present: A&Ox3 Exam Initial Vital Signs Temp Pulse Resp BP Pulse Ox 98.4 F 86 18 151/90 99 02/11/19 12:48 02/11/19 12:48 02/11/19 12:48 02/11/19 12:48 02/11/19 12:48 Results - Labs 02/11/19 14:21 02/11/19 14:21 Abnormal lab results WBC 55.2 K/mcL (4.3-11.1) H* 02/11/19 14:21 MCH 27.9 pg (28.0-33.3) L 02/11/19 14:21 MCHC 31.4 g/dL (31.6-35.5) L 02/11/19 14:21 50.8 K/mcL (0.6-4.6) H 02/11/19 14:21 1.1 K/mcL (0.0-0.6) H 02/11/19 14:21 Present (Not Present) A 02/11/19 14:21 Present (Not Present) A 02/11/19 14:21 Glucose 113 mg/dL (70-105) H 02/11/19 14:21 ALT 87 Units/L (7-52) H 02/11/19 14:21 122 Units/L (34-104) H 02/11/19 14:21 9 Units/L (11-82) L 02/11/19 14:21 Diabetes panel 02/11/19 Range/Units 14:21 Sodium 137 (136-145) mEq/L Potassium 4.3 (3.5-5.1) mEq/L Chloride 101 (98-107) mEq/L Carbon Dioxide 29 (23-29) mEq/L BUN 14 (6-20) mg/dL Creatinine 1.05 (0.70-1.30) mg/dL Glucose 113 H (70-105) mg/dL Calcium 9.5 (8.6-10.3) mg/dL AST 26 (13-39) Units/L ALT 87 H (7-52) Units/L Alkaline Phosphatase 122 H (34-104) Units/L Albumin 4.3 (3.5-5.7) g/dL Calcium panel 02/11/19 Range/Units 14:21 Calcium 9.5 (8.6-10.3) mg/dL Albumin 4.3 (3.5-5.7) g/dL Pituitary panel 02/11/19 Range/Units 14:21 Sodium 137 (136-145) mEq/L Potassium 4.3 (3.5-5.1) mEq/L Chloride 101 (98-107) mEq/L Carbon Dioxide 29 (23-29) mEq/L BUN 14 (6-20) mg/dL Creatinine 1.05 (0.70-1.30) mg/dL Glucose 113 H (70-105) mg/dL Calcium 9.5 (8.6-10.3) mg/dL Adrenal panel 02/11/19 Range/Units 14:21 Sodium 137 (136-145) mEq/L Potassium 4.3 (3.5-5.1) mEq/L Chloride 101 (98-107) mEq/L Carbon Dioxide 29 (23-29) mEq/L BUN 14 (6-20) mg/dL Creatinine 1.05 (0.70-1.30) mg/dL Glucose 113 H (70-105) mg/dL Calcium 9.5 (8.6-10.3) mg/dL Total Bilirubin 0.7 (0.3-1.0) mg/dL AST 26 (13-39) Units/L ALT 87 H (7-52) Units/L Alkaline Phosphatase 122 H (34-104) Units/L Albumin 4.3 (3.5-5.7) g/dL All other labs normal. - Imaging CT scan - abdomen: report reviewed, image reviewed CT scan - pelvis: report reviewed, image reviewed Consult Discharge Plan - Plan Referrals: Becky Davis MD [Primary Care Provider] -
[2019-02-11] MEDS ORDERED: Ibuprofen 400 MG TABLET PO PRN (20:11)
[2019-02-11] MEDS ORDERED: Ondansetron ODT 4 MG TAB.RAPDIS SL PRN (20:11)
[2019-02-11] MEDS ORDERED: traMADol 50 MG TABLET PO PRN (20:11)
[2019-02-11] MEDS ORDERED: Naloxone 0.4 MG/ML INJ IVP PRN (20:11)
[2019-02-11] MEDS ORDERED: 0.9 % Sodium Chloride 1,000 ML IVC SCH (20:15)
[2019-02-12] MEDS ORDERED: DESMOPRESSIN IVPB SCH (01:00)
[2019-02-12] MEDS ORDERED: SODIUM CHLORIDE 0.9% IVPB SCH (01:00)
[2019-02-12] MEDS ORDERED: *HR* FentaNYL (PF) 100 MCG/2 ML VIAL ONE ×2 (01:15→03:10)
[2019-02-12] MEDS ORDERED: *HR* Propofol 200 MG/20 ML VIAL IVP ONE ×2 (01:15→03:46)
[2019-02-12] MEDS ORDERED: *HR* Midazolam HCl 2 MG/2 ML VIAL ONE (01:15)
[2019-02-12] MEDS ORDERED: Lidocaine -MPF 2% 2 ML VIAL ONE (01:17)
[2019-02-12] MEDS ORDERED: *HR* Succinylcholine 200 MG/10 ML VIAL IVP ONE (01:17)
[2019-02-12] MEDS ORDERED: *HR* Rocuronium Bromide 50 MG/5 ML VIAL ONE (01:18)
[2019-02-12] MEDS ORDERED: Ondansetron 4 MG/2 ML VIAL ONE (01:19)
[2019-02-12] MEDS ORDERED: Dexamethasone 4 MG/ML VIAL ONE ×2 (01:19→03:00)
[2019-02-12] MEDS ORDERED: Tranexamic Acid 1,000 MG/10 ML VIAL ONE (01:47)
--- NOTE | 2019-02-12 01:55 | Anesthesia Evaluation PreOp ---
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: Denies Any Significant HX Other Medical History: Other (CLL) Anesthesia History: No Prior Anesthetic Complications, Past Anesthesia (lap cholecystectomy 02-01-19) Alcohol Use: none Drug use: none Medications and Allergies Dofetilide [Tikosyn] 500 mcg PO Q12H 06/24/18 [History] Diltiazem CD (24hr) [Cardizem CD] 120 mg PO QAM 02/02/19 [History] DiphenhydraMINE [Benadryl] 25 - 50 mg PO HS PRN 02/02/19 [History] Docusate [Colace] 100 mg PO BID #30 capsule 02/02/19 [Rx] Rivaroxaban [Xarelto] 20 mg PO QAM 02/02/19 [History] Tamsulosin [Flomax] 0.4 mg PO HS 02/02/19 [History] Allergy/AdvReac Type Severity Reaction Status Date / Time No Known Allergies Allergy Verified 02/11/19 12:48 - Meds/Allergy Pre-op Review Medications Reviewed: Yes Allergies Reviewed: Yes Beta Blockers on Current Med List: No Anesthesia Results - Labs 02/11/19 14:21 02/11/19 14:21 - Imaging EKG: report reviewed, image reviewed (SB) Additional studies: TTE: Indications: Arrhythmia Impressions: Normal LV systolic function, LVEF 60%. Normal left ventricular diastolic function. Normal right ventricular size and function. Moderately dilated left atrium. Mild aortic regurgitation. Mild mitral regurgitation. Mild pulmonic regurgitation. No evidence of pulmonary hypertension. Anesthesia Exam Last Vital Signs Temp 98.8 F 02/12/19 00:00 Pulse 59 02/12/19 00:00 Resp 18 02/12/19 00:00 BP 117/70 02/12/19 00:00 Pulse Ox 97 02/12/19 00:00 Weight: 106 kg - HEENT Pupil (Motor): Pupils equal, EOMI Mallampati: III Teeth: Normal Oral Opening: Greater than 3 - ARCHIVAL STUDIES PROFESSOR LOC: Oriented - Cardiac Rhythm: Regular Murmur: None - Pulmonary Breath Sounds: bilateral Clear Respiratory Effort: Symmetrical Anesthesia Assess/Plan ASA Score: 3, E Level of consciousness: Cooperative Anesthetic Plan: General, Precautions (Took Xarelto yesterday; will administer DDAVP and TXA intra-op to minimize bleeding risk; incarcerated hernia, so will proceed with surgery in spite of added bleeding risk) Monitoring Plan: Standard Monitors Recovery Plan: PACU
[2019-02-12] MEDS ORDERED: *HR* OxyCODONE Immed Rel 5 MG TABLET PO PRN (02:18)
[2019-02-12] MEDS ORDERED: *HR* Promethazine 25 MG/ML VIAL IVP PRN (02:18)
[2019-02-12] MEDS ORDERED: Ketorolac 30 MG/ML VIAL ONE (02:50)
[2019-02-12] MEDS ORDERED: *HR* HYDROMORPHONE 2 MG/ML VIAL ONE (02:52)
[2019-02-12] MEDS ORDERED: Piperacillin/Tazobactam 3.375 GM in Water for inj. (sterile) 20 ML 20 ML IVP ONE (02:55)
[2019-02-12] MEDS ORDERED: CefOXitin 1,000 MG VIAL ONE (03:18)
[2019-02-12] MEDS ORDERED: Acetaminophen IV 1,000 MG/100 ML INFUS..BTL IVPB ONE (03:24)
[2019-02-12] MEDS ORDERED: *HR* FentaNYL (PF) 100 MCG/2 ML VIAL IVP PRN (03:24)
--- NOTE | 2019-02-12 04:14 | Operative Note ---
Date of procedure: 02/12/19 Pre-op diagnosis: incarcerated umbilical hernia Post-op diagnosis: other (small bowel injury incorporating into prior incisional closure) Procedure: robotic umbilical hernia converted to exploratory laparotomy small bowel resection closure of incisional hernia Implants: none Complications: none Anesthesia: GETA Local Anesthetics: 0.5% Sensorcaine HCL SubQ (cc) Surgeon: Taiwo Schreiber Was there an outpatient physical therapist assistant present: Yes [employer]: Tresa Tobias Estimated blood loss (cc): 50 Specimen: small bowel that was resected Condition: stable Disposition: PACU Procedure in Detail: patient seen and examined. placed in the supine position. mechanical dvt prophylaxis was placed. patient underwent smooth induction of anesthesia. prepped and draped in the usual fashion. preoperative antibiotics were given. A time out was held identifying correct patient, pathology, procedure, and physician. I started by using the visiport to enter into the abdominal cavity. two other working ports were placed along the left abdomen. It was clear that the small bowel was incarcerated. The mesh from his prior umbilical hernia was intact. As I began my dissection to reduce the hernia, the bowel fragoso were especially tenuous and easily violated and I was looking at the lumen of the bowel. The decision was made to convert to open. I created a lower abdominal wall incision, dissected through the subcutaneous tissue and entered into the abdomen. I was able to find the loop of bowel that was violated. I noted there was sutures through the abdominal wall. This was likely from his last surgery. I removed the sutures and resected the small bowel using a blue loaded stapler both proximally and distally, ligated through the mesentery, then removed the segment. Again this was a segment of bowel that was incorporated into the abdominal wall closure. I then created a side to side anastamosis using the stapler and the TA stapler to close the enterotomy. There was a segment of bowel that was adhered to his mesh, but the decision was made to leave the mesh and loop of bowel in place. I then closed the fascia with PDS suture in an interrupted figure of eight fashion. I used vicryl suture to closet he dermal layer and staplers for the skin. The remaining incisions along the abdominal wall were also closed with monocryl suture. Of note the 12mm incision fascia was closed with vicryl on a UR-6 needle. Dermabond was used to seal the incsions The patient was escorted to PACu in stable condition
[2019-02-12] MEDS: *HR* HYDROmorphone (PF) 1 MG/ML SYRINGE IVP PRN ×2 (04:18→04:28)
--- NOTE | 2019-02-12 04:53 | Anesthesia Evaluation Post Op ---
Date of Encounter: 02/12/19 Time of Encounter: 04:53 - Vital Signs Vital Signs: Last Vital Signs Temp 98.5 F 02/12/19 04:40 Pulse 74 02/12/19 04:40 Resp 16 02/12/19 04:40 BP 145/76 02/12/19 04:40 Pulse Ox 94 02/12/19 04:40 - Lungs Lungs: Clear Ascult./Percussion - Airway Airway: Non-obstructed - Cardiovascular Regular Rate - Mental Status Mental Status: Alert & Oriented, Answers Appropriately - Pain Pain Scale: 6 - Nausea Vomiting Nausea Vomiting: Not Present - Hydration Hydration: NPO - Discharge PostOp Status: Transfer Patient to floor
[2019-02-12] MEDS ORDERED: Naloxone 0.4 MG/ML INJ IVP PRN ×2 (05:06)
[2019-02-12] MEDS ORDERED: Ondansetron ODT 4 MG TAB.RAPDIS SL PRN (05:06)
[2019-02-12] MEDS: *HR* Morphine 30 MG/ 30 ML PCA IVC PRN ×2 (05:31→14:42)
[2019-02-12] MEDS ORDERED: *HR* Enoxaparin 40 MG/0.4 ML SYRINGE SQ SCH (06:00)
[2019-02-12] MEDS: SODIUM CHLORIDE 0.9% IVPB SCH (06:07)
[2019-02-12] MEDS: DESMOPRESSIN IVPB SCH (06:07)
[2019-02-12] MEDS: 0.9 % Sodium Chloride 1,000 ML IVC SCH ×2 (06:08→15:07)
[2019-02-12] MEDS: Ringers Solution, Lactated 1,000 ML IVC SCH ×2 (06:13→15:07)
[2019-02-12] MEDS: *HR* Enoxaparin 40 MG/0.4 ML SYRINGE SQ SCH (06:13)
[2019-02-12] MEDS: Diltiazem CD (24hr) 120 MG CAPSULE PO SCH (08:18)
[2019-02-12 12:18] LABS: Hemoglobin 12.2 g/dL (12.9-16.9); Mean Corpuscular Hemoglobin 27.9 pg (28.0-33.3)
[2019-02-12 12:20] LABS: Hematocrit 38.4 % (37.5-50.1); Mean Corpuscular HGB Conc 31.8 g/dL (31.6-35.5); Mean Corpuscular Volume 87.7 fL (83.0-100.0); Mean Platelet Volume 9.4 fL (9.4-12.4); Platelet Count 315 K/mcL (140-400); Red Blood Count 4.38 M/mcL (4.19-5.50)
[2019-02-12 12:26] LABS: White Blood Count 55.4 K/mcL (4.3-11.1)
[2019-02-12 12:41] LABS: BUN/Creatinine Ratio 13 (6-26); Blood Urea Nitrogen 11 mg/dL (6-20); Calcium 8.8 mg/dL (8.6-10.3); Carbon Dioxide 26 mEq/L (23-29); Chloride 99 mEq/L (98-107); Glucose 149 mg/dL (70-105); Magnesium 1.9 mg/dL (1.6-2.6); Osmolality,Calculated 280 (280-300); Phosphorous 3.8 mg/dL (2.7-4.5); Potassium 4.6 mEq/L (3.5-5.1); Sodium 134 mEq/L (136-145); eGFR For African Americans > 60 (> 60); eGFR For Non-African Americans > 60 (> 60)
[2019-02-12 12:42] LABS: Lymphocytes # 34.4 K/mcL (0.6-4.6); Monocytes # 2.2 K/mcL (0.0-1.3); Neutrophils # 18.8 K/mcL (1.6-8.9)
[2019-02-12 12:43] LABS: Platelet Estimate Normal (Normal); Reactive Lymphocytes Present (Not Present); Smudge Cells Present (Not Present)
--- NOTE | 2019-02-12 16:32 | AcuteCareSurgery Progress Note ---
<Johny Sky P - Last Filed: 02/12/19 16:39> Date of Encounter: 02/12/19 Time of Encounter: 02:30 - Assessment and Plan (1) Abdominal pain Current Visit: No Status: Acute * 58 years old male with history significant for atrial fibrillation, cancer, cardiomyopathy, COPD, coronary artery disease, hyperlipidemia s/p prior umbilical hernia, cholecystectomy who presents with 4-5 days of worsening PO intake and nausea and vomiting * CT findings most compatible with a small-bowel obstruction with point of transition identified as a small-bowel containing hernia just inferolateral to the umbilicus, * robotic umbilical hernia converted to exploratory laparotomy small bowel resection closure of incisional hernia done on 02/12/2019 * Today is 1st post surgery * Patient is improving gradually, abdomen pain is less, his vitals are stable. Postoperative hemoglobin is 12.2 Plan : Gradually advance diet as he tolerates, start from ice chips to clear liquid : Increasing activity as tolerated ; Trend labs ; Monitor intake and output ; GI and DVT prophylaxis Qualifiers: Abdominal location: left lower quadrant Qualified Code(s): R10.32 - Left lower quadrant pain (2) Small bowel obstruction Current Visit: Yes Status: Acute : Today is first post op day after surgery :robotic umbilical hernia converted to exploratory laparotomy small bowel resection closure of incisional hernia : Patient has been symptomatically improved Subjective Patient reports: no new complaints, feels better, pain is less, flatus, no bowel movement, afebrile Narrative: He is 58 years old male with significant for atrial fibrillation, cancer/ CLL , cardiomyopathy, COPD, coronary artery disease, hyperlipidemia s/p prior umbilical hernia, cholecystectomy who presents with 4-5 days of worsening PO intake and nausea and vomiting. Abdominal CT findings most compatible with a small-bowel obstruction with point of transition identified as a small-bowel containing hernia just inferolateral to the umbilicus. On 02/12 :robotic umbilical hernia converted to exploratory laparotomy small bowel resection closure of incisional hernia. Patient is gradually progressing better. His vitals are stable; blood pressure 126/74, pulse 67 over temperature 98.4 F, his postoperative hemoglobin 12.2 sodium 134, potassium 4.6, renal function normal limit. We are planning to advance diet gradually, he will start from ice chips to clear liquid today Objective Vital Signs - Last 8 Hours Temp Pulse Resp BP Pulse Ox 02/12/19 15:23 98.4 F 67 17 126/74 93 02/12/19 11:32 97.0 F L 71 18 136/79 94 02/12/19 09:15 97.7 F 69 16 137/80 92 Intake and Output 02/12/19 02/12/19 02/12/19 07:59 15:59 23:59 Intake Total 57.975 / 957.975 900 / 957.975 Output Total 25 / 1050 1025 / 1050 Balance 32.975 / -92.025 -125 / -92.025 Intake: IV Fluids 57.975 / 957.975 900 / 957.975 Lactated Ringers 1,000 ML @ 100 900 / 900 mls/hr IVC .Q10H [facility] Rx#: [id number] Ddavp 31.9 Mcg In 0.9 % Sodium 57.975 / 57.975 Chloride 50 ML @ 100 mls/hr IVPB ONCE SHIREEN Rx#:[id number] Output: Urine 0 / 1025 1025 / 1025 Estimated Blood Loss 25 Other: Meal npo - General physical appearance well nourished, no distress, moderate pain - Eyes PERRL, normal ocular movement - ENT normal mucosa - Neck Neck exam: no bruits, trachea midline, no lymphadectomy - Respiratory normal expansion, normal respiratory effort, clear to percussion - Cardiovascular Cardiovascular exam: Present: RRR, regular rhythm, no murmurs/rubs/gallops - Abdomen Abdomen: Present: bowel sounds present, distended, tender. Absent: guarding, rebound, rigid Abdominal Tenderness: diffusely Hernia: none - Incision Incision: Present: clean and dry, intact - Integumentary no rash - Neurologic CN 2-12 grossly intact, normal coordination - Musculoskeletal normal gait - Psychiatric oriented to time, oriented to person, oriented to place - Labs 02/12/19 11:54 02/12/19 11:54 Diabetes panel 02/12/19 Range/Units 11:54 Sodium 134 L (136-145) mEq/L Potassium 4.6 (3.5-5.1) mEq/L Chloride 99 (98-107) mEq/L Carbon Dioxide 26 (23-29) mEq/L BUN 11 (6-20) mg/dL Creatinine 0.83 (0.70-1.30) mg/dL Glucose 149 H (70-105) mg/dL Calcium 8.8 (8.6-10.3) mg/dL Calcium panel 02/12/19 Range/Units 11:54 Calcium 8.8 (8.6-10.3) mg/dL Phosphorus 3.8 (2.7-4.5) mg/dL Pituitary panel 02/12/19 Range/Units 11:54 Sodium 134 L (136-145) mEq/L Potassium 4.6 (3.5-5.1) mEq/L Chloride 99 (98-107) mEq/L Carbon Dioxide 26 (23-29) mEq/L BUN 11 (6-20) mg/dL Creatinine 0.83 (0.70-1.30) mg/dL Glucose 149 H (70-105) mg/dL Calcium 8.8 (8.6-10.3) mg/dL Adrenal panel 02/12/19 Range/Units 11:54 Sodium 134 L (136-145) mEq/L Potassium 4.6 (3.5-5.1) mEq/L Chloride 99 (98-107) mEq/L Carbon Dioxide 26 (23-29) mEq/L BUN 11 (6-20) mg/dL Creatinine 0.83 (0.70-1.30) mg/dL Glucose 149 H (70-105) mg/dL Calcium 8.8 (8.6-10.3) mg/dL Consult Discharge Plan - Plan Referrals: Becky Davis MD [Primary Care Provider] - <Taiwo Schreiber - Last Filed: 02/12/19 18:00> Date of Encounter: 02/12/19 - Assessment and Plan (1) Small bowel obstruction Current Visit: Yes Status: Acute Objective Vital Signs - Last 8 Hours Temp Pulse Resp BP Pulse Ox 02/12/19 15:23 98.4 F 67 17 126/74 93 02/12/19 11:32 97.0 F L 71 18 136/79 94 Intake and Output 02/12/19 02/12/19 02/12/19 07:59 15:59 23:59 Intake Total 57.975 / 957.975 900 / 957.975 Output Total 25 / 1050 1025 / 1050 Balance 32.975 / -92.025 -125 / -92.025 Intake: IV Fluids 57.975 / 957.975 900 / 957.975 Lactated Ringers 1,000 ML @ 100 900 / 900 mls/hr IVC .Q10H [facility] Rx#: [id number] Ddavp 31.9 Mcg In 0.9 % Sodium 57.975 / 57.975 Chloride 50 ML @ 100 mls/hr IVPB ONCE [facility] Rx#:[id number] Output: Urine 0 1025 1025 / 1025 Estimated Blood Loss Other: Meal npo - Labs 02/12/19 11:54 02/12/19 11:54 Diabetes panel 02/12/19 Range/Units 11:54 Sodium 134 L (136-145) mEq/L Potassium 4.6 (3.5-5.1) mEq/L Chloride 99 (98-107) mEq/L Carbon Dioxide 26 (23-29) mEq/L BUN 11 (6-20) mg/dL Creatinine 0.83 (0.70-1.30) mg/dL Glucose 149 H (70-105) mg/dL Calcium 8.8 (8.6-10.3) mg/dL Calcium panel 02/12/19 Range/Units 11:54 Calcium 8.8 (8.6-10.3) mg/dL Phosphorus 3.8 (2.7-4.5) mg/dL Pituitary panel 02/12/19 Range/Units 11:54 Sodium 134 L (136-145) mEq/L Potassium 4.6 (3.5-5.1) mEq/L Chloride 99 (98-107) mEq/L Carbon Dioxide 26 (23-29) mEq/L BUN 11 (6-20) mg/dL Creatinine 0.83 (0.70-1.30) mg/dL Glucose 149 H (70-105) mg/dL Calcium 8.8 (8.6-10.3) mg/dL Adrenal panel 02/12/19 Range/Units 11:54 Sodium 134 L (136-145) mEq/L Potassium 4.6 (3.5-5.1) mEq/L Chloride 99 (98-107) mEq/L Carbon Dioxide 26 (23-29) mEq/L BUN 11 (6-20) mg/dL Creatinine 0.83 (0.70-1.30) mg/dL Glucose 149 H (70-105) mg/dL Calcium 8.8 (8.6-10.3) mg/dL - Attending Attestation patient seen and examined. i have reviewed all labs, imaging, and notes. i ahve discussed the case with the resident in detail; I agree with the assessment and plan and wish to add the following... OOBTC IV abx IVF, await return of bowel function ice chips home meds are okay
[2019-02-12] MEDS: traMADol 50 MG TABLET PO PRN (23:50)
[2019-02-13] MEDS: *HR* Morphine 30 MG/ 30 ML PCA IVC PRN ×3 (00:16→22:10)
[2019-02-13] MEDS: Ringers Solution, Lactated 1,000 ML IVC SCH ×2 (01:41→11:21)
[2019-02-13 05:32] LABS: Basophils % 0.2 %; Eosinophils % 1.2 %; Hematocrit 36.9 % (37.5-50.1); Immature Granulocytes % 0.4 % (0-4); Platelet Count 304 K/mcL (140-400); Red Cell Distribution Width 14.3 % (11.5-14.5)
[2019-02-13 05:34] LABS: Basophils # 0.1 K/mcL (0.0-0.2); Eosinophils # 0.6 K/mcL (0.0-0.6); Hemoglobin 11.8 g/dL (12.9-16.9); Lymphocytes # 37.6 K/mcL (0.6-4.6); Lymphocytes % 73.3 %; Mean Corpuscular Hemoglobin 27.9 pg (28.0-33.3); Mean Corpuscular Volume 87.2 fL (83.0-100.0); Mean Platelet Volume 9.2 fL (9.4-12.4); Monocytes # 0.5 K/mcL (0.0-1.3); Neutrophils # 12.3 K/mcL (1.6-8.9); Red Blood Count 4.23 M/mcL (4.19-5.50); Segmented Neutrophils % 23.9 %
[2019-02-13] MEDS: DESMOPRESSIN IVPB SCH (05:37)
[2019-02-13] MEDS: *HR* Enoxaparin 40 MG/0.4 ML SYRINGE SQ SCH (05:37)
[2019-02-13] MEDS: SODIUM CHLORIDE 0.9% IVPB SCH (05:37)
[2019-02-13 05:38] LABS: White Blood Count 51.3 K/mcL (4.3-11.1)
[2019-02-13 05:53] LABS: Platelet Estimate Normal (Normal); Reactive Lymphocytes Present (Not Present); Smudge Cells Present (Not Present)
[2019-02-13 06:19] LABS: BUN/Creatinine Ratio 15 (6-26); Blood Urea Nitrogen 12 mg/dL (6-20); Calcium 8.6 mg/dL (8.6-10.3); Carbon Dioxide 25 mEq/L (23-29); Chloride 98 mEq/L (98-107); Glucose 123 mg/dL (70-105); Magnesium 1.8 mg/dL (1.6-2.6); Osmolality,Calculated 275 (280-300); Phosphorous 3.3 mg/dL (2.7-4.5); Potassium 4.3 mEq/L (3.5-5.1); Sodium 132 mEq/L (136-145); eGFR For African Americans > 60 (> 60); eGFR For Non-African Americans > 60 (> 60)
[2019-02-13] MEDS: Diltiazem CD (24hr) 120 MG CAPSULE PO SCH (09:23)
[2019-02-13] MEDS ORDERED: Acetaminophen 325 MG TABLET PO ONE (11:06)
--- NOTE | 2019-02-13 12:22 | AcuteCareSurgery Progress Note ---
<Johny kSy P - Last Filed: 02/13/19 22:25> Date of Encounter: 02/13/19 Time of Encounter: 10:45 - Assessment and Plan (1) Abdominal pain Current Visit: No Status: Acute * 58 years old male with history significant for atrial fibrillation, cancer, cardiomyopathy, COPD, coronary artery disease, hyperlipidemia s/p prior umbilical hernia, cholecystectomy who presents with 4-5 days of worsening PO intake and nausea and vomiting * CT findings most compatible with a small-bowel obstruction with point of transition identified as a small-bowel containing hernia just inferolateral to the umbilicus, * robotic umbilical hernia converted to exploratory laparotomy small bowel resection closure of incisional hernia done on 02/12/2019 * Today is 2nd post surgery * Patient is improving gradually, abdomen pain is less, his vitals are stable. Postoperative hemoglobin is 11.8 Plan : Gradually advance diet as he tolerates, advance to clear liquid : Increasing activity as tolerated ; Trend labs ; Monitor intake and output ; GI and DVT prophylaxis Qualifiers: Abdominal location: left lower quadrant Qualified Code(s): R10.32 - Left lower quadrant pain (2) Small bowel obstruction Current Visit: Yes Status: Acute : Today is 2nd post op day after surgery :robotic umbilical hernia converted to exploratory laparotomy small bowel resection closure of incisional hernia : Patient has been symptomatically improved Subjective Patient reports: no new complaints, feels better, pain is less, no flatus, no bowel movement, afebrile Narrative: He is 58 years old male who presented with 4-5 days of worsening PO intake and nausea and vomiting. Abdominal CT findings most compatible with a small-bowel obstruction with point of transition identified as a small-bowel containing hernia just inferolateral to the umbilicus. On 02/12 :robotic umbilical hernia converted to exploratory laparotomy small bowel resection closure of incisional hernia. Today is second postoperative day. Patient is presented to be getting better. His vital signs stable, except 1 he spiked fever 100.5 F, blood pressure 145/63, saturation 93%, pulse 82 . We have advised to advance diet to clear liquid and increase activity as he tolerates." Objective Vital Signs - Last 8 Hours Temp Pulse Resp BP Pulse Ox 02/13/19 10:59 100.5 F H 82 16 145/83 93 02/13/19 06:45 98.4 F 84 17 137/80 92 02/13/19 04:51 98.4 F 74 14 140/75 93 Intake and Output 02/12/19 02/13/19 02/13/19 23:59 07:59 15:59 Intake Total 0 / 516.068 [id number] Output Total 150 / 1200 200 / 200 Balance -150 / -242.025 858 / 1758 900 / 1758 Intake: IV Fluids 1057 Lactated Ringers 1,000 ML @ 100 1000 / 1900 900 / 1900 mls/hr IVC .Q10H [facility] Rx#: [id number] Ddavp 31.9 Mcg In 0.9 % Sodium 58 / 58 Chloride 50 ML @ 100 mls/hr IVPB ONCE [facility] Rx#:[id number] Oral 0 / 0 0 / 0 0 / 0 Output: Urine 150 / 1175 200 / 200 Other: Meal NPO # Voids 1 # Bowel Movements 0 Blood Glucose* 120 115 - General physical appearance well nourished, no distress, moderate pain - Eyes PERRL, normal ocular movement - ENT normal mucosa - Neck Neck exam: no bruits, trachea midline, no lymphadectomy - Respiratory normal respiratory effort, clear to percussion, clear to auscultation - Cardiovascular Cardiovascular exam: Present: RRR, regular rhythm, no murmurs/rubs/gallops - Abdomen Abdomen: Present: bowel sounds present, soft, distended, tender. Absent: guarding, rebound, rigid, peritoneal Abdominal Tenderness: diffusely - Incision Incision: Present: clean and dry, intact - Integumentary no rash - Neurologic CN 2-12 grossly intact, normal coordination, normal sensation - Musculoskeletal normal gait, normal posture - Psychiatric oriented to time, oriented to person, oriented to place, speech is normal, memory intact - Labs 02/13/19 05:08 02/13/19 05:08 Diabetes panel 02/12/19 02/13/19 Range/Units 11:54 05:08 Sodium 134 L 132 L (136-145) mEq/L Potassium 4.6 4.3 (3.5-5.1) mEq/L Chloride 99 98 (98-107) mEq/L Carbon Dioxide 26 25 (23-29) mEq/L BUN 11 12 (6-20) mg/dL Creatinine 0.83 0.80 (0.70-1.30) mg/dL Glucose 149 H 123 H (70-105) mg/dL Calcium 8.8 8.6 (8.6-10.3) mg/dL Calcium panel 02/12/19 02/13/19 Range/Units 11:54 05:08 Calcium 8.8 8.6 (8.6-10.3) mg/dL Phosphorus 3.8 3.3 (2.7-4.5) mg/dL Pituitary panel 02/12/19 02/13/19 Range/Units 11:54 05:08 Sodium 134 L 132 L (136-145) mEq/L Potassium 4.6 4.3 (3.5-5.1) mEq/L Chloride 99 98 (98-107) mEq/L Carbon Dioxide 26 25 (23-29) mEq/L BUN 11 12 (6-20) mg/dL Creatinine 0.83 0.80 (0.70-1.30) mg/dL Glucose 149 H 123 H (70-105) mg/dL Calcium 8.8 8.6 (8.6-10.3) mg/dL Adrenal panel 02/12/19 02/13/19 Range/Units 11:54 05:08 Sodium 134 L 132 L (136-145) mEq/L Potassium 4.6 4.3 (3.5-5.1) mEq/L Chloride 99 98 (98-107) mEq/L Carbon Dioxide 26 25 (23-29) mEq/L BUN 11 12 (6-20) mg/dL Creatinine 0.83 0.80 (0.70-1.30) mg/dL Glucose 149 H 123 H (70-105) mg/dL Calcium 8.8 8.6 (8.6-10.3) mg/dL - Imaging CT scan - abdomen: report reviewed Consult Discharge Plan - Plan Referrals: Becky Davis MD [Primary Care Provider] - <Taiwo Schreiber - Last Filed: 02/14/19 16:11> Date of Encounter: 02/14/19 - Assessment and Plan (1) Small bowel obstruction Current Visit: Yes Status: Acute Objective Vital Signs - Last 8 Hours Temp Pulse Resp BP Pulse Ox 02/14/19 14:36 99.7 F H 85 18 143/81 93 02/14/19 14:13 99.7 F H 88 18 148/82 02/14/19 11:15 99.2 F 91 16 118/64 97 Intake and Output 02/14/19 02/14/19 02/14/19 07:59 15:59 23:59 Intake Total 1157.975 / 1257.975 100 / 1257.975 Output Total 700 / 700 Balance 457.975 / 557.975 100 / 557.975 Intake: IV Fluids 1157.975 / 1257.975 100 / 1257.975 Lactated Ringers 1,000 ML @ 100 1000 / 1000 mls/hr IVC .Q10H [facility] Rx#: [id number] Ddavp 31.9 Mcg In 0.9 % Sodium 57.975 / 57.975 Chloride 50 ML @ 100 mls/hr IVPB ONCE [facility] Rx#:[id number] Zosyn 3.375 GM In 0.9 % Sodium 100 / 200 100 / 200 Chloride (Mini-Bag +) 100 ML @ 25 mls/hr IVPB Q6HR [facility]IRE[facility] Rx#: [id number] Oral 0 / 0 Output: Urine 700 / 700 Other: Meal NPO # Voids 0 3 # Bowel Movements 0 0 Blood Glucose* 104 120 - Labs 02/14/19 01:20 02/14/19 01:20 Diabetes panel 02/14/19 Range/Units 01:20 Sodium 130 L (136-145) mEq/L Potassium 4.3 (3.5-5.1) mEq/L Chloride 97 L (98-107) mEq/L Carbon Dioxide 23 (23-29) mEq/L BUN 10 (6-20) mg/dL Creatinine 0.70 (0.70-1.30) mg/dL Glucose 122 H (70-105) mg/dL Calcium 8.1 L (8.6-10.3) mg/dL Calcium panel 02/14/19 Range/Units 01:20 Calcium 8.1 L (8.6-10.3) mg/dL Pituitary panel 02/14/19 Range/Units 01:20 Sodium 130 L (136-145) mEq/L Potassium 4.3 (3.5-5.1) mEq/L Chloride 97 L (98-107) mEq/L Carbon Dioxide 23 (23-29) mEq/L BUN 10 (6-20) mg/dL Creatinine 0.70 (0.70-1.30) mg/dL Glucose 122 H (70-105) mg/dL Calcium 8.1 L (8.6-10.3) mg/dL Adrenal panel 02/14/19 Range/Units 01:20 Sodium 130 L (136-145) mEq/L Potassium 4.3 (3.5-5.1) mEq/L Chloride 97 L (98-107) mEq/L Carbon Dioxide 23 (23-29) mEq/L BUN 10 (6-20) mg/dL Creatinine 0.70 (0.70-1.30) mg/dL Glucose 122 H (70-105) mg/dL Calcium 8.1 L (8.6-10.3) mg/dL - Attending Attestation please see ACS note placed by Dr. Schreiber on the same day for the A/P
--- NOTE | 2019-02-13 18:22 | AcuteCareSurgery Progress Note ---
Date of Encounter: 02/13/19 Time of Encounter: 18:19 - Assessment and Plan (1) Small bowel obstruction Current Visit: Yes Status: Acute 58M pMH significant for CLL POD #1 s/p ex lap, small bowel resection with primary anastamosis; febrile; pain controlled; incision: clean, dry, intact ice chips IS usage activity as tolerated: ambulate often cont pain regimen await return of bowel function Subjective Patient reports: no new complaints, feels better, still having pain, no flatus, no bowel movement, other (febrile; ) Objective Vital Signs - Last 8 Hours Temp Pulse Resp BP Pulse Ox 02/13/19 15:56 99.6 F 84 16 136/84 93 02/13/19 13:16 99.6 F 02/13/19 10:59 100.5 F H 82 16 145/83 93 Intake and Output 02/13/19 02/13/19 02/13/19 07:59 15:59 23:59 Intake Total 1058 / 1958 900 / 1958 Output Total 200 / 200 Balance 858 / 1758 900 / 1758 Intake: IV Fluids 1058 / 1958 900 / 1958 Lactated Ringers 1,000 ML @ 100 1000 / 1900 900 / 1900 mls/hr IVC .Q10H [facility] Rx#: [id number] Ddavp 31.9 Mcg In 0.9 % Sodium 58 / 58 Chloride 50 ML @ 100 mls/hr IVPB ONCE [facility] Rx#:[id number] Oral 0 / 0 0 / 0 Output: Urine 200 / 200 Other: Meal Lunch # Voids 1 # Bowel Movements 0 Blood Glucose* 120 115 125 - General physical appearance no distress - Respiratory normal expansion, normal respiratory effort - Cardiovascular Cardiovascular exam: Present: RRR - Abdomen Abdomen: Present: soft, tender (appropriately tender) - Incision Incision: Present: clean and dry, intact - Neurologic CN 2-12 grossly intact - Psychiatric oriented to time, oriented to person, oriented to place - Labs 02/13/19 05:08 02/13/19 05:08 Diabetes panel 02/13/19 Range/Units 05:08 Sodium 132 L (136-145) mEq/L Potassium 4.3 (3.5-5.1) mEq/L Chloride 98 (98-107) mEq/L Carbon Dioxide 25 (23-29) mEq/L BUN 12 (6-20) mg/dL Creatinine 0.80 (0.70-1.30) mg/dL Glucose 123 H (70-105) mg/dL Calcium 8.6 (8.6-10.3) mg/dL Calcium panel 02/13/19 Range/Units 05:08 Calcium 8.6 (8.6-10.3) mg/dL Phosphorus 3.3 (2.7-4.5) mg/dL Pituitary panel 02/13/19 Range/Units 05:08 Sodium 132 L (136-145) mEq/L Potassium 4.3 (3.5-5.1) mEq/L Chloride 98 (98-107) mEq/L Carbon Dioxide 25 (23-29) mEq/L BUN 12 (6-20) mg/dL Creatinine 0.80 (0.70-1.30) mg/dL Glucose 123 H (70-105) mg/dL Calcium 8.6 (8.6-10.3) mg/dL Adrenal panel 02/13/19 Range/Units 05:08 Sodium 132 L (136-145) mEq/L Potassium 4.3 (3.5-5.1) mEq/L Chloride 98 (98-107) mEq/L Carbon Dioxide 25 (23-29) mEq/L BUN 12 (6-20) mg/dL Creatinine 0.80 (0.70-1.30) mg/dL Glucose 123 H (70-105) mg/dL Calcium 8.6 (8.6-10.3) mg/dL Consult Discharge Plan - Plan Referrals: Becky Davis MD [Primary Care Provider] -
[2019-02-14] MEDS: Piperacillin/Tazobactam 3.375 GM in 0.9 % Sodium Chloride Mini Bag 100 ML IVPB SCH ×4 (00:05→16:46)
[2019-02-14 01:40] LABS: Basophils % 0.3 %; Eosinophils % 1.1 %; Mean Platelet Volume 9.3 fL (9.4-12.4); Monocytes % 1.3 %; Red Cell Distribution Width 14.2 % (11.5-14.5)
[2019-02-14 01:41] LABS: Basophils # 0.2 K/mcL (0.0-0.2); Eosinophils # 0.6 K/mcL (0.0-0.6); Hematocrit 33.7 % (37.5-50.1); Hemoglobin 10.7 g/dL (12.9-16.9); Immature Granulocytes % 0.6 % (0-4); Lymphocytes % 72.2 %; Mean Corpuscular HGB Conc 31.8 g/dL (31.6-35.5); Mean Corpuscular Hemoglobin 27.9 pg (28.0-33.3); Mean Corpuscular Volume 87.8 fL (83.0-100.0); Neutrophils # 12.2 K/mcL (1.6-8.9); Platelet Count 278 K/mcL (140-400); Red Blood Count 3.84 M/mcL (4.19-5.50); Segmented Neutrophils % 24.5 %
[2019-02-14 01:44] LABS: Lymphocytes # 35.9 K/mcL (0.6-4.6); Monocytes # 0.7 K/mcL (0.0-1.3)
[2019-02-14 01:46] LABS: White Blood Count 49.7 K/mcL (4.3-11.1)
[2019-02-14 01:47] LABS: INR 1.4; Prothrombin Time 16.3 Seconds (9.4-12.1)
[2019-02-14 01:50] LABS: Activated Partial Thrombo Time 30.1 Seconds (26.0-36.0)
[2019-02-14 01:59] LABS: BUN/Creatinine Ratio 14 (6-26); Blood Urea Nitrogen 10 mg/dL (6-20); Calcium 8.1 mg/dL (8.6-10.3); Carbon Dioxide 23 mEq/L (23-29); Chloride 97 mEq/L (98-107); Glucose 122 mg/dL (70-105); Osmolality,Calculated 270 (280-300); Potassium 4.3 mEq/L (3.5-5.1); Sodium 130 mEq/L (136-145); eGFR For African Americans > 60 (> 60); eGFR For Non-African Americans > 60 (> 60)
[2019-02-14 02:03] LABS: Platelet Estimate Normal (Normal)
[2019-02-14] MEDS: DESMOPRESSIN IVPB SCH (06:14)
[2019-02-14] MEDS: SODIUM CHLORIDE 0.9% IVPB SCH (06:14)
[2019-02-14] MEDS: *HR* Enoxaparin 40 MG/0.4 ML SYRINGE SQ SCH (06:15)
[2019-02-14] MEDS: Ringers Solution, Lactated 1,000 ML IVC SCH ×2 (06:46→16:47)
--- NOTE | 2019-02-14 09:04 | AcuteCareSurgery Progress Note ---
<Johny Sky P - Last Filed: 02/14/19 11:52> Date of Encounter: 02/14/19 Time of Encounter: 09:00 - Assessment and Plan (1) Abdominal pain Current Visit: No Status: Acute * Today is 3rd Post op day after robotic umbilical hernia converted to exploratory laparotomy small bowel resection closure of incisional hernia ( on 02/12/2019) . the patient was presented with 4-5 days of worsening PO intake and nausea and vomiting and CT abdomen and pelvis findings most compatible with a small-bowel obstruction with point of transition identified as a small- bowel containing hernia just inferolateral * Patient is improving gradually, abdomen pain is less, but he has not passed stool and gas yet. * his vitals are stable. Postoperative hemoglobin is 10.7, HCt 33.7 * He has history of CLL, so his count is elevated 49.7. Plan : * Continue IV antibiotic * Gradually advance diet as he tolerates, advance to clear liquid * Increasing activity as tolerated * Trend labs * Wound care. * Monitor intake and output * Intensive spirometry * GI and DVT prophylaxis Qualifiers: Abdominal location: left lower quadrant Qualified Code(s): R10.32 - Left lower quadrant pain (2) Small bowel obstruction Current Visit: Yes Status: Acute : Today is 3rd post op day after surgery :robotic umbilical hernia converted to exploratory laparotomy small bowel resection closure of incisional hernia : Patient has been symptomatically improved Subjective Patient reports: feels better, still having pain, no flatus, no bowel movement Narrative: He is 58 years old male who presented with 4-5 days of worsening nausea and vomiting. Abdominal & pelvis CT findings showed compatible with a small-bowel obstruction with point of transition identified as a small-bowel containing hernia just inferolateral to the umbilicus. On 02/12 :robotic umbilical hernia converted to exploratory laparotomy small bowel resection closure of incisional hernia. Today is 2nd postoperative day. Patient is gradually getting better. His abdominal pain is progressively less. His vital signs stable, except 1 spiked fever 100.7 F last night. His blood pressure 136/78, saturation 94%, pulse 89 . He stated that he has not passed gas and does not have bowel movement yet. We have advised for clear liquid diet . We will continue antibiotics, advised for increase activity gradually as he tolerates. Objective Vital Signs - Last 8 Hours Temp Pulse Resp BP Pulse Ox 02/14/19 07:22 99.3 F 89 16 136/78 94 02/14/19 04:28 100.0 F H 82 18 132/78 96 Intake and Output 02/13/19 02/14/19 02/14/19 23:59 07:59 15:59 Intake Total 0 1957 1157.975 / 1157.975 Output Total 0 / 200 700 / 700 Balance 0 1758 457.975 / 457.975 Intake: IV Fluids 1157.975 / 1157.975 Lactated Ringers 1,000 ML @ 100 1000 / 1000 mls/hr IVC .Q10H [facility] Rx#: [id number] Ddavp 31.9 Mcg In 0.9 % Sodium 57.975 / 57.975 Chloride 50 ML @ 100 mls/hr IVPB ONCE [facility] Rx#:[id number] Zosyn 3.375 GM In 0.9 % Sodium 100 / 100 Chloride (Mini-Bag +) 100 ML @ 25 mls/hr IVPB Q6HR [facility] Rx#: [id number] Oral 0 / 0 0 / 0 Output: Urine 0 / 200 700 / 700 Other: Meal npo # Voids 1 0 # Bowel Movements 0 0 Blood Glucose* 125 104 - General physical appearance well developed, no distress, moderate pain - Eyes PERRL, normal ocular movement - ENT normal mucosa, no congestion - Neck Neck exam: no bruits, trachea midline, no lymphadectomy, no venous distension - Respiratory normal expansion, normal respiratory effort, clear to percussion, clear to auscultation - Abdomen Abdomen: Present: distended, tender. Absent: organomegaly, masses, guarding, rebound, rigid, peritoneal Abdominal Tenderness: diffusely - Incision Incision: Present: clean and dry, intact - Integumentary no rash - Neurologic CN 2-12 grossly intact, normal coordination, normal sensation - Musculoskeletal normal gait, normal posture - Psychiatric oriented to time, oriented to person, oriented to place, speech is normal - Labs 02/14/19 01:20 02/14/19 01:20 Diabetes panel 02/14/19 Range/Units 01:20 Sodium 130 L (136-145) mEq/L Potassium 4.3 (3.5-5.1) mEq/L Chloride 97 L (98-107) mEq/L Carbon Dioxide 23 (23-29) mEq/L BUN 10 (6-20) mg/dL Creatinine 0.70 (0.70-1.30) mg/dL Glucose 122 H (70-105) mg/dL Calcium 8.1 L (8.6-10.3) mg/dL Calcium panel 02/14/19 Range/Units 01:20 Calcium 8.1 L (8.6-10.3) mg/dL Pituitary panel 02/14/19 Range/Units 01:20 Sodium 130 L (136-145) mEq/L Potassium 4.3 (3.5-5.1) mEq/L Chloride 97 L (98-107) mEq/L Carbon Dioxide 23 (23-29) mEq/L BUN 10 (6-20) mg/dL Creatinine 0.70 (0.70-1.30) mg/dL Glucose 122 H (70-105) mg/dL Calcium 8.1 L (8.6-10.3) mg/dL Adrenal panel 02/14/19 Range/Units 01:20 Sodium 130 L (136-145) mEq/L Potassium 4.3 (3.5-5.1) mEq/L Chloride 97 L (98-107) mEq/L Carbon Dioxide 23 (23-29) mEq/L BUN 10 (6-20) mg/dL Creatinine 0.70 (0.70-1.30) mg/dL Glucose 122 H (70-105) mg/dL Calcium 8.1 L (8.6-10.3) mg/dL - Imaging CT scan - abdomen: report reviewed Consult Discharge Plan - Plan Referrals: Becky Davis MD [Primary Care Provider] - <Adi Tarango - Last Filed: 02/14/19 13:22> Date of Encounter: 02/14/19 Objective Vital Signs - Last 8 Hours Temp Pulse Resp BP Pulse Ox 02/14/19 11:15 99.2 F 91 16 118/64 97 02/14/19 07:22 99.3 F 89 16 136/78 94 Intake and Output 02/13/19 02/14/19 02/14/19 23:59 07:59 15:59 Intake Total 1957 1157.975 / 1257.975 100 / 1257.975 Output Total 0 200 700 / 700 Balance 1757 457.975 / 557.975 100 / 557.975 Intake: IV Fluids 1157.975 / 1257.975 100 / 1257.975 Lactated Ringers 1,000 ML @ 100 1000 / 1000 mls/hr IVC .Q10H [facility] Rx#: [id number] Ddavp 31.9 Mcg In 0.9 % Sodium 57.975 / 57.975 Chloride 50 ML @ 100 mls/hr IVPB ONCE [facility] Rx#:[id number] Zosyn 3.375 GM In 0.9 % Sodium 100 / 200 100 / 200 Chloride (Mini-Bag +) 100 ML @ 25 mls/hr IVPB Q6HR [facility] Rx#: [id number] Oral 0 / 0 0 / 0 Output: Urine 0 / 200 700 / 700 Other: Meal npo NPO # Voids 1 0 3 # Bowel Movements 0 0 0 Blood Glucose* 125 104 120 - Labs 02/14/19 01:20 02/14/19 01:20 Diabetes panel 02/14/19 Range/Units 01:20 Sodium 130 L (136-145) mEq/L Potassium 4.3 (3.5-5.1) mEq/L Chloride 97 L (98-107) mEq/L Carbon Dioxide 23 (23-29) mEq/L BUN 10 (6-20) mg/dL Creatinine 0.70 (0.70-1.30) mg/dL Glucose 122 H (70-105) mg/dL Calcium 8.1 L (8.6-10.3) mg/dL Calcium panel 02/14/19 Range/Units 01:20 Calcium 8.1 L (8.6-10.3) mg/dL Pituitary panel 02/14/19 Range/Units 01:20 Sodium 130 L (136-145) mEq/L Potassium 4.3 (3.5-5.1) mEq/L Chloride 97 L (98-107) mEq/L Carbon Dioxide 23 (23-29) mEq/L BUN 10 (6-20) mg/dL Creatinine 0.70 (0.70-1.30) mg/dL Glucose 122 H (70-105) mg/dL Calcium 8.1 L (8.6-10.3) mg/dL Adrenal panel 02/14/19 Range/Units 01:20 Sodium 130 L (136-145) mEq/L Potassium 4.3 (3.5-5.1) mEq/L Chloride 97 L (98-107) mEq/L Carbon Dioxide 23 (23-29) mEq/L BUN 10 (6-20) mg/dL Creatinine 0.70 (0.70-1.30) mg/dL Glucose 122 H (70-105) mg/dL Calcium 8.1 L (8.6-10.3) mg/dL - Attending Attestation I examined this patient and my medical decision-making was reviewed with the Resident Physician. I agree with the documented findings, disposition and treatment plan as described except to the extent set forth below. The patient is seen and evaluated on morning rounds with the acute care surgery team. The patient had exploratory laparotomy and small bowel resection. He is doing well after surgery and has quiet bowel sounds at this point. We will continue supportive care and hydration. He is postoperative day 2 Adi Tarango MD FACS
[2019-02-14] MEDS: Diltiazem CD (24hr) 120 MG CAPSULE PO SCH (10:02)
[2019-02-14] MEDS: traMADol 50 MG TABLET PO PRN (11:12)
[2019-02-14] MEDS ORDERED: Acetaminophen 325 MG TABLET PO PRN (14:18)
[2019-02-14 16:13] LABS: Eosinophils % 1.1 %; Hemoglobin 10.5 g/dL (12.9-16.9)
[2019-02-14 16:15] LABS: Basophils # 0.1 K/mcL (0.0-0.2); Basophils % 0.1 %; Eosinophils # 0.5 K/mcL (0.0-0.6); Hematocrit 32.5 % (37.5-50.1); Immature Granulocytes % 0.5 % (0-4); Lymphocytes % 73.8 %; Mean Corpuscular HGB Conc 32.3 g/dL (31.6-35.5); Mean Corpuscular Hemoglobin 28.2 pg (28.0-33.3); Mean Corpuscular Volume 87.4 fL (83.0-100.0); Mean Platelet Volume 9.3 fL (9.4-12.4); Monocytes # 0.6 K/mcL (0.0-1.3); Monocytes % 1.2 %; Neutrophils # 11.2 K/mcL (1.6-8.9); Platelet Count 279 K/mcL (140-400); Red Blood Count 3.72 M/mcL (4.19-5.50); Segmented Neutrophils % 23.3 %
[2019-02-14 16:22] LABS: Lymphocytes # 35.6 K/mcL (0.6-4.6); White Blood Count 48.2 K/mcL (4.3-11.1)
[2019-02-14] MEDS ORDERED: NON-FORMULARY MEDICATION 1 EACH EACH (Rivaroxaban [Xarelto] 20 MG) PO SCH (16:45)
[2019-02-14] MEDS ORDERED: PCA IVC PRN (16:45)
[2019-02-14] MEDS ORDERED: MORPHINE IVC PRN (16:45)
[2019-02-14 16:52] LABS: Smudge Cells Present (Not Present)
[2019-02-14 17:21] LABS: Bilirubin,Urine Small (Negative); Blood,Urine Negative (Negative); Clarity,Urine Clear (Clear); Color,Urine Yellow (Yellow); Glucose,Urine (UA) Normal (Normal); Ketones,Urine 80 mg/dL (Negative); Leukocyte Esterase,Urine Negative (Negative); Nitrite,Urine Negative (Negative); PH,Urine 6.5 pH Units (5.0-8.0); Protein,Urine 100 mg/dL (Neg-Trace); Specific Gravity,Urine 1.025 (1.010-1.025); Urobilinogen,Urine Normal (Normal)
[2019-02-14 17:24] LABS: Bacteria,Urine None Seen per hpf (None-Few); Hyaline Casts,Urine None Seen per lpf (None-Few); RBC,Urine 0-3 per hpf (0-3); Squamous Epithelial Cell,Urine Many per lpf (None-Few); WBC,Urine 0-3 per hpf (0-3)
[2019-02-14] MEDS: *HR* Rivaroxaban 10 MG TABLET PO SCH (18:42)
[2019-02-15] MEDS: Piperacillin/Tazobactam 3.375 GM in 0.9 % Sodium Chloride Mini Bag 100 ML IVPB SCH ×3 (00:27→16:40)
[2019-02-15] MEDS: Ringers Solution, Lactated 1,000 ML IVC SCH ×2 (02:05→02:33)
[2019-02-15] MEDS: SODIUM CHLORIDE 0.9% IVPB SCH (04:30)
[2019-02-15] MEDS: DESMOPRESSIN IVPB SCH (04:30)
[2019-02-15 05:59] LABS: BUN/Creatinine Ratio 16 (6-26); Blood Urea Nitrogen 10 mg/dL (6-20); Calcium 8.1 mg/dL (8.6-10.3); Carbon Dioxide 23 mEq/L (23-29); Chloride 98 mEq/L (98-107); Glucose 122 mg/dL (70-105); Magnesium 1.8 mg/dL (1.6-2.6); Osmolality,Calculated 270 (280-300); Phosphorous 2.1 mg/dL (2.7-4.5); Potassium 3.8 mEq/L (3.5-5.1); Sodium 130 mEq/L (136-145); eGFR For African Americans > 60 (> 60); eGFR For Non-African Americans > 60 (> 60)
[2019-02-15] MEDS: Diltiazem CD (24hr) 120 MG CAPSULE PO SCH (08:50)
[2019-02-15] MEDS: 0.9 % Sodium Chloride 1,000 ML IVC SCH ×2 (08:50→16:40)
--- NOTE | 2019-02-15 10:11 | AcuteCareSurgery Progress Note ---
<Johny Sky P - Last Filed: 02/15/19 10:25> Date of Encounter: 02/15/19 Time of Encounter: 09:45 - Assessment and Plan (1) Abdominal pain Current Visit: No Status: Acute * Today is 3rd Post op day after robotic umbilical hernia converted to exploratory laparotomy small bowel resection closure of incisional hernia ( on 02/12/2019) . the patient was presented with 4-5 days of worsening PO intake and nausea and vomiting and CT abdomen and pelvis findings most compatible with a small-bowel obstruction with point of transition identified as a small- bowel containing hernia just inferolateral * Patient is improving gradually, abdomen pain is less, but he has not passed stool , but passed gas * his vitals are stable. Postoperative hemoglobin is 10.5 and HCT 32.5 * He has history of CLL, so his count is elevated 48.2 Plan : * Continue IV antibiotic * Gradually advance diet as he tolerates, advance to Full liquid today , he started passing gas and started mobilization * Increasing activity as tolerated * Trend labs * Wound care. * Monitor intake and output * Intensive spirometry * GI and DVT prophylaxis Qualifiers: Abdominal location: left lower quadrant Qualified Code(s): R10.32 - Left lower quadrant pain (2) Small bowel obstruction Current Visit: Yes Status: Acute : Today is 3rd post op day after surgery :robotic umbilical hernia converted to exploratory laparotomy small bowel resection closure of incisional hernia : Patient has been gradually improving . (3) Atrial fibrillation with RVR Current Visit: No Status: Chronic * Patient has history of atrial fibrillation under-treatment * Is taking Tikosyn , rate controlled (4) Cardiomyopathy Current Visit: No Status: Acute * The patient has history of cardiomegaly cardiomyopathy on medical management * No acute symptom in this visit Qualifiers: Cardiomyopathy type: unspecified Qualified Code(s): I42.9 - Cardiomyopathy, unspecified (5) Chronic lymphocytic leukemia Current Visit: Yes Status: Chronic * Is chronic patient of CLL ,on regular hemo-oncology follow-up * He has persistently elevated white cell count: 48.2 Subjective Patient reports: no new complaints, pain is less, flatus, no bowel movement, afebrile Narrative: He is 58 years old male with significant for atrial fibrillation, cancer/ CLL , cardiomyopathy, COPD, coronary artery disease, hyperlipidemia s/p prior umbilical hernia, cholecystectomy who presents with 4-5 days of worsening PO intake and nausea and vomiting. Abdominal CT findings most compatible with a small-bowel obstruction with point of transition identified as a small-bowel containing hernia just inferolateral to the umbilicus. On 02/12 :robotic umbilical hernia converted to exploratory laparotomy small bowel resection closure of incisional hernia. Today is POD # 3rd, during our bedside visit, patient was lying comfortably on the bed, he stated that his abdominal pain is significantly less, he for last gas but has not passed stool yet. His vitals are stable , afebrile for more than 24 hours , blood pressure maintained . He has slightly elevated white cell count because of chronic patient of CLL. Hemoglobin is 10.5 . His serum sodium level is 1:30 and potassium 3.8 . We have advised him for some added salt in his diet .He started ambulating and taking clear liquid. We are gradually advancing diet to full liquid and activity increase as tolerated. Objective Vital Signs - Last 8 Hours Temp Pulse Resp BP Pulse Ox 02/15/19 07:45 98.9 F 76 18 123/74 97 02/15/19 03:14 99.4 F 75 16 128/79 96 Intake and Output 02/14/19 02/15/19 02/15/19 23:59 07:59 15:59 Intake Total 1100 / 2357.975 1157.975 / 1257.975 100 / 1257.975 Output Total 380 / 1080 Balance 720 / 4635.778 9924.975 / 1257.975 100 / 1257.975 Intake: IV Fluids 1100 / 2357.975 1157.975 / 1157.975 Lactated Ringers 1,000 ML @ 100 1000 / 2000 1000 / 1000 mls/hr IVC .Q10H [facility] Rx#: [id number] Ddavp 31.9 Mcg In 0.9 % Sodium 57.975 / 57.975 Chloride 50 ML @ 100 mls/hr IVPB ONCE [facility] Rx#:[id number] Zosyn 3.375 GM In 0.9 % Sodium 100 / 100 100 / 100 Chloride (Mini-Bag +) 100 ML @ 25 mls/hr IVPB Q8HR [facility] Rx#: [id number] Oral 0 / 0 100 / 100 Output: Urine 380 / 1080 Other: # Voids 1 Blood Glucose* 87 104 - General physical appearance well nourished, no distress - Eyes PERRL, normal ocular movement - ENT normal mucosa - Neck Neck exam: no masses, no bruits, trachea midline, no lymphadectomy, no venous distension - Respiratory normal expansion, normal respiratory effort, clear to percussion - Cardiovascular Cardiovascular exam: Present: RRR, regular rhythm, no murmurs/rubs/gallops - Abdomen Abdomen: Present: bowel sounds present, soft, distended, tender. Absent: organomegaly, guarding, rebound, surgical scars Hernia: none - Incision Incision: Present: clean and dry, intact - Integumentary no rash - Neurologic CN 2-12 grossly intact, normal coordination, normal sensation - Musculoskeletal normal gait - Psychiatric oriented to time, oriented to person, oriented to place, speech is normal - Labs 02/14/19 15:49 02/15/19 05:10 Diabetes panel 02/15/19 Range/Units 05:10 Sodium 130 L (136-145) mEq/L Potassium 3.8 (3.5-5.1) mEq/L Chloride 98 (98-107) mEq/L Carbon Dioxide 23 (23-29) mEq/L BUN 10 (6-20) mg/dL Creatinine 0.61 L (0.70-1.30) mg/dL Glucose 122 H (70-105) mg/dL Calcium 8.1 L (8.6-10.3) mg/dL Calcium panel 02/15/19 Range/Units 05:10 Calcium 8.1 L (8.6-10.3) mg/dL Phosphorus 2.1 L (2.7-4.5) mg/dL Pituitary panel 02/15/19 Range/Units 05:10 Sodium 130 L (136-145) mEq/L Potassium 3.8 (3.5-5.1) mEq/L Chloride 98 (98-107) mEq/L Carbon Dioxide 23 (23-29) mEq/L BUN 10 (6-20) mg/dL Creatinine 0.61 L (0.70-1.30) mg/dL Glucose 122 H (70-105) mg/dL Calcium 8.1 L (8.6-10.3) mg/dL Adrenal panel 02/15/19 Range/Units 05:10 Sodium 130 L (136-145) mEq/L Potassium 3.8 (3.5-5.1) mEq/L Chloride 98 (98-107) mEq/L Carbon Dioxide 23 (23-29) mEq/L BUN 10 (6-20) mg/dL Creatinine 0.61 L (0.70-1.30) mg/dL Glucose 122 H (70-105) mg/dL Calcium 8.1 L (8.6-10.3) mg/dL Consult Discharge Plan - Plan Referrals: Taiwo Schreiber MD [Non-Partnered Physician] - Becky Davis MD [Primary Care Provider] - 02/25/19 11:45 am <EmelinaAdi - Last Filed: 02/15/19 10:53> Date of Encounter: 02/15/19 Objective Vital Signs - Last 8 Hours Temp Pulse Resp BP Pulse Ox 02/15/19 07:45 98.9 F 76 18 123/74 97 02/15/19 03:14 99.4 F 75 16 128/79 96 Intake and Output 02/14/19 02/15/19 02/15/19 23:59 07:59 15:59 Intake Total 1100 / 2357.975 1157.975 / 1257.975 100 / 1257.975 Output Total 380 / 1080 Balance 720 / 9443.636 7753.975 / 1257.975 100 / 1257.975 Intake: IV Fluids 1100 / 2357.975 1157.975 / 1157.975 Lactated Ringers 1,000 ML @ 100 1000 / 2000 1000 / 1000 mls/hr IVC .Q10H [facility] Rx#: [id number] Ddavp 31.9 Mcg In 0.9 % Sodium 57.975 / 57.975 Chloride 50 ML @ 100 mls/hr IVPB ONCE [facility] Rx#:[id number] Zosyn 3.375 GM In 0.9 % Sodium 100 / 100 100 / 100 Chloride (Mini-Bag +) 100 ML @ 25 mls/hr IVPB Q8HR [facility] Rx#: [id number] Oral 0 / 0 100 / 100 Output: Urine 380 / 1080 Other: # Voids 1 Blood Glucose* 87 104 - Labs 02/14/19 15:49 02/15/19 05:10 Diabetes panel 02/15/19 Range/Units 05:10 Sodium 130 L (136-145) mEq/L Potassium 3.8 (3.5-5.1) mEq/L Chloride 98 (98-107) mEq/L Carbon Dioxide 23 (23-29) mEq/L BUN 10 (6-20) mg/dL Creatinine 0.61 L (0.70-1.30) mg/dL Glucose 122 H (70-105) mg/dL Calcium 8.1 L (8.6-10.3) mg/dL Calcium panel 02/15/19 Range/Units 05:10 Calcium 8.1 L (8.6-10.3) mg/dL Phosphorus 2.1 L (2.7-4.5) mg/dL Pituitary panel 02/15/19 Range/Units 05:10 Sodium 130 L (136-145) mEq/L Potassium 3.8 (3.5-5.1) mEq/L Chloride 98 (98-107) mEq/L Carbon Dioxide 23 (23-29) mEq/L BUN 10 (6-20) mg/dL Creatinine 0.61 L (0.70-1.30) mg/dL Glucose 122 H (70-105) mg/dL Calcium 8.1 L (8.6-10.3) mg/dL Adrenal panel 02/15/19 Range/Units 05:10 Sodium 130 L (136-145) mEq/L Potassium 3.8 (3.5-5.1) mEq/L Chloride 98 (98-107) mEq/L Carbon Dioxide 23 (23-29) mEq/L BUN 10 (6-20) mg/dL Creatinine 0.61 L (0.70-1.30) mg/dL Glucose 122 H (70-105) mg/dL Calcium 8.1 L (8.6-10.3) mg/dL - Attending Attestation I examined this patient and my medical decision-making was reviewed with the Resident Physician. I agree with the documented findings, disposition and treatment plan as described except to the extent set forth below. The patient is seen and evaluated on morning rounds with the acute care surgery team in the resident. The patient has had small bowel resection and is now developing bowel activity. We will advance his diet. Incision is clean and dry. Adi Tarango MD FACS
[2019-02-15] MEDS: *HR* Rivaroxaban 10 MG TABLET PO SCH (16:41)
[2019-02-16] MEDS: Piperacillin/Tazobactam 3.375 GM in 0.9 % Sodium Chloride Mini Bag 100 ML IVPB SCH ×3 (01:17→17:37)
[2019-02-16] MEDS: 0.9 % Sodium Chloride 1,000 ML IVC SCH (02:40)
[2019-02-16] MEDS: Diltiazem CD (24hr) 120 MG CAPSULE PO SCH (08:43)
[2019-02-16 08:56] LABS: Basophils % 0.3 %; Hemoglobin 10.3 g/dL (12.9-16.9); Mean Platelet Volume 9.2 fL (9.4-12.4)
[2019-02-16 08:57] LABS: Basophils # 0.1 K/mcL (0.0-0.2); Eosinophils # 1.4 K/mcL (0.0-0.6); Eosinophils % 3.2 %; Hematocrit 32.5 % (37.5-50.1); Immature Granulocytes % 0.4 % (0-4); Lymphocytes % 79.7 %; Mean Corpuscular HGB Conc 31.7 g/dL (31.6-35.5); Mean Corpuscular Hemoglobin 27.7 pg (28.0-33.3); Mean Corpuscular Volume 87.4 fL (83.0-100.0); Monocytes # 0.7 K/mcL (0.0-1.3); Monocytes % 1.5 %; Platelet Count 323 K/mcL (140-400); Red Blood Count 3.72 M/mcL (4.19-5.50); Red Cell Distribution Width 14.1 % (11.5-14.5); Segmented Neutrophils % 14.9 %
[2019-02-16 09:03] LABS: Lymphocytes # 35.6 K/mcL (0.6-4.6); Neutrophils # 6.7 K/mcL (1.6-8.9)
[2019-02-16 09:06] LABS: White Blood Count 44.7 K/mcL (4.3-11.1)
[2019-02-16 09:16] LABS: BUN/Creatinine Ratio 13 (6-26); Blood Urea Nitrogen 8 mg/dL (6-20); Calcium 8.2 mg/dL (8.6-10.3); Carbon Dioxide 24 mEq/L (23-29); Chloride 103 mEq/L (98-107); Glucose 118 mg/dL (70-105); Magnesium 2.1 mg/dL (1.6-2.6); Osmolality,Calculated 279 (280-300); Phosphorous 2.2 mg/dL (2.7-4.5); Potassium 3.9 mEq/L (3.5-5.1); Sodium 135 mEq/L (136-145); eGFR For African Americans > 60 (> 60); eGFR For Non-African Americans > 60 (> 60)
[2019-02-16 09:29] LABS: Platelet Estimate Normal (Normal); Smudge Cells Present (Not Present)
--- NOTE | 2019-02-16 10:42 | AcuteCareSurgery Progress Note ---
<Johny Sky P - Last Filed: 02/16/19 11:56> Date of Encounter: 02/16/19 Time of Encounter: 08:30 - Assessment and Plan (1) Abdominal pain Current Visit: No Status: Acute * Today is 4thPost op day after robotic umbilical hernia converted to exploratory laparotomy small bowel resection closure of incisional hernia ( on 02/12/2019) . the patient was presented with 4-5 days of worsening PO intake and nausea and vomiting and CT abdomen and pelvis findings most compatible with a small-bowel obstruction with point of transition identified as a small- bowel containing hernia just inferolateral * Patient is improving gradually, abdomen pain is less, but he has not passed stool , but passed gas * his vitals are stable. Postoperative hemoglobin is 10.3 and HCT 32.5 * He has history of CLL, so his count is elevated 44.7 Plan : * Continue IV antibiotic * Gradually advance diet as he tolerates, advance to Full liquid- soft diet later today if he tolerates , he started having bowel movement and started mobilization * Supplementation of phosphate * Taking about a few serina and wound toileting. * Increasing activity as tolerated * Trend labs * Wound care. * Monitor intake and output * Intensive spirometry * GI and DVT prophylaxis Qualifiers: Abdominal location: left lower quadrant Qualified Code(s): R10.32 - Left lower quadrant pain (2) Small bowel obstruction Current Visit: Yes Status: Acute : Today is 3rd post op day after surgery :robotic umbilical hernia converted to exploratory laparotomy small bowel resection closure of incisional hernia : Patient has been gradually improving . (3) Atrial fibrillation with RVR Current Visit: No Status: Chronic * Patient has history of atrial fibrillation under-treatment * Is taking Tikosyn , rate controlled (4) Cardiomyopathy Current Visit: No Status: Acute * The patient has history of cardiomegaly cardiomyopathy on medical management * No acute symptom in this visit Qualifiers: Cardiomyopathy type: unspecified Qualified Code(s): I42.9 - Cardiomyopathy, unspecified (5) Chronic lymphocytic leukemia Current Visit: Yes Status: Chronic * Is chronic patient of CLL ,on regular hemo-oncology follow-up * He has persistently elevated white cell count: 48.2 Subjective Patient reports: no new complaints, feels better, pain is less, flatus, bowel movement, afebrile Narrative: He is 58 years old male with significant for atrial fibrillation, cancer/ CLL , cardiomyopathy, COPD, coronary artery disease, hyperlipidemia s/p prior umbilical hernia, cholecystectomy who presents with 4-5 days of worsening oral intake and nausea and vomiting. Abdominal CT findings most compatible with a small-bowel obstruction with point of transition identified as a small-bowel containing hernia just inferolateral to the umbilicus. On 02/12 :robotic umbilical hernia converted to exploratory laparotomy small bowel resection closure of incisional hernia. Today is POD # 4th, during our bedside visit, patient was lying comfortably on the bed, he stated that his abdominal pain is significantly less, passed gas but has bowel movement His vitals are stable , afebrile for more than 48 hours , blood pressure maintained . He has slightly elevated white cell count because of chronic patient of CLL. Hemoglobin is 10.3 . His serum sodium level is 135 and potassium 3.9, Phosphorus 2.1 .He started ambulating and taking clear liquid. We are gradually advancing diet to full liquid and activity increase as tolerated. He will continue getting IV antibiotics and he would advance diet to full liquid and soft diet if he tolerates, continue IV antibiotics. Objective Vital Signs - Last 8 Hours Temp Pulse Resp BP Pulse Ox 02/16/19 08:20 65 17 96 02/16/19 07:43 98.7 F 65 18 126/78 95 02/16/19 04:17 98.0 F 65 16 134/74 97 Intake and Output 02/15/19 02/16/19 02/16/19 23:59 07:59 15:59 Intake Total 1100 / 2457.975 1100 / 1220 120 / 1220 Output Total 275 / 275 1750 / 1750 Balance 825 / 2182.975 -650 / -530 120 / -530 Intake: IV Fluids 1100 / 2357.975 1100 / 1100 0.9 % Sodium Chloride 1,000 ML 1000 / 1000 1000 / 1000 @ 100 mls/hr IVC .Q10H SHIREEN Rx#: [id number] Zosyn 3.375 GM In 0.9 % Sodium 100 / 300 100 / 100 Chloride (Mini-Bag +) 100 ML @ 25 mls/hr IVPB Q8HR SHIREEN Rx#: [id number] Oral 120 / 120 Output: Urine 275 / 275 1750 / 1750 Other: Meal Breakfast Percent of Meal Consumed 50% - General physical appearance well developed, well nourished, no distress, moderate pain - Eyes PERRL, normal ocular movement - ENT normal mucosa - Neck Neck exam: trachea midline, no lymphadectomy, no venous distension - Respiratory normal expansion, normal respiratory effort, clear to percussion - Cardiovascular Cardiovascular exam: Present: RRR - Abdomen Abdomen: Present: bowel sounds present, soft, distended, tender. Absent: guarding, rebound, rigid, surgical scars Hernia: none - Incision Incision: Present: clean and dry, intact - Integumentary no rash - Neurologic CN 2-12 grossly intact, normal coordination, normal sensation - Musculoskeletal normal gait - Psychiatric oriented to time, oriented to person, oriented to place, speech is normal - Labs 02/16/19 08:37 02/16/19 08:37 Diabetes panel 02/16/19 Range/Units 08:37 Sodium 135 L (136-145) mEq/L Potassium 3.9 (3.5-5.1) mEq/L Chloride 103 (98-107) mEq/L Carbon Dioxide 24 (23-29) mEq/L BUN 8 (6-20) mg/dL Creatinine 0.61 L (0.70-1.30) mg/dL Glucose 118 H (70-105) mg/dL Calcium 8.2 L (8.6-10.3) mg/dL Calcium panel 02/16/19 Range/Units 08:37 Calcium 8.2 L (8.6-10.3) mg/dL Phosphorus 2.2 L (2.7-4.5) mg/dL Pituitary panel 02/16/19 Range/Units 08:37 Sodium 135 L (136-145) mEq/L Potassium 3.9 (3.5-5.1) mEq/L Chloride 103 (98-107) mEq/L Carbon Dioxide 24 (23-29) mEq/L BUN 8 (6-20) mg/dL Creatinine 0.61 L (0.70-1.30) mg/dL Glucose 118 H (70-105) mg/dL Calcium 8.2 L (8.6-10.3) mg/dL Adrenal panel 02/16/19 Range/Units 08:37 Sodium 135 L (136-145) mEq/L Potassium 3.9 (3.5-5.1) mEq/L Chloride 103 (98-107) mEq/L Carbon Dioxide 24 (23-29) mEq/L BUN 8 (6-20) mg/dL Creatinine 0.61 L (0.70-1.30) mg/dL Glucose 118 H (70-105) mg/dL Calcium 8.2 L (8.6-10.3) mg/dL Consult Discharge Plan - Plan Referrals: Taiwo Schreiber MD [Non-Partnered Physician] - Becky Davis MD [Primary Care Provider] - 02/25/19 11:45 am <Taiwo Schreiber - Last Filed: 02/16/19 15:30> Date of Encounter: 02/16/19 - Assessment and Plan (1) Small bowel obstruction Current Visit: Yes Status: Acute Objective Vital Signs - Last 8 Hours Temp Pulse Resp BP Pulse Ox 02/16/19 10:55 99.0 F 66 16 129/75 100 02/16/19 08:20 65 17 96 02/16/19 07:43 98.7 F 65 18 126/78 95 Intake and Output 02/15/19 02/16/19 02/16/19 23:59 07:59 15:59 Intake Total 1100 / 2457.975 1100 / 1820 720 / 1820 Output Total 275 / 275 1750 / 2500 750 / 2500 Balance 825 / 2182.975 -650 / -680 -30 / -680 Intake: IV Fluids 1100 / 2357.975 1100 / 1100 0.9 % Sodium Chloride 1,000 ML 1000 / 1000 1000 / 1000 @ 100 mls/hr IVC .Q10H [facility]IRE[facility] Rx#: [id number] Zosyn 3.375 GM In 0.9 % Sodium 100 / 300 100 / 100 Chloride (Mini-Bag +) 100 ML @ 25 mls/hr IVPB Q8HR SHIRE[facility] Rx#: [id number] Oral 720 / 720 Output: Urine 275 / 275 1750 / 2500 750 / 2500 Other: Meal Lunch Percent of Meal Consumed 50% - Labs 02/16/19 08:37 02/16/19 08:37 Diabetes panel 02/16/19 Range/Units 08:37 Sodium 135 L (136-145) mEq/L Potassium 3.9 (3.5-5.1) mEq/L Chloride 103 (98-107) mEq/L Carbon Dioxide 24 (23-29) mEq/L BUN 8 (6-20) mg/dL Creatinine 0.61 L (0.70-1.30) mg/dL Glucose 118 H (70-105) mg/dL Calcium 8.2 L (8.6-10.3) mg/dL Calcium panel 02/16/19 Range/Units 08:37 Calcium 8.2 L (8.6-10.3) mg/dL Phosphorus 2.2 L (2.7-4.5) mg/dL Pituitary panel 02/16/19 Range/Units 08:37 Sodium 135 L (136-145) mEq/L Potassium 3.9 (3.5-5.1) mEq/L Chloride 103 (98-107) mEq/L Carbon Dioxide 24 (23-29) mEq/L BUN 8 (6-20) mg/dL Creatinine 0.61 L (0.70-1.30) mg/dL Glucose 118 H (70-105) mg/dL Calcium 8.2 L (8.6-10.3) mg/dL Adrenal panel 02/16/19 Range/Units 08:37 Sodium 135 L (136-145) mEq/L Potassium 3.9 (3.5-5.1) mEq/L Chloride 103 (98-107) mEq/L Carbon Dioxide 24 (23-29) mEq/L BUN 8 (6-20) mg/dL Creatinine 0.61 L (0.70-1.30) mg/dL Glucose 118 H (70-105) mg/dL Calcium 8.2 L (8.6-10.3) mg/dL - Attending Attestation patient seen and examined. i have reviewed all labs, imaging, and notes. i have discussed the case in detail with the resident. i agree with the above assessment and plan and wish to add the following... POD #4 s/p robotic conv to open repair of itragenic bowel injury (sutured to the abdominal wall), small bowel resection; patient having bowel function; afebrile; appropriate amount of pain; discharge from midline incision; tolerating CLD adv to FLD cont IV abx OOBTC, ambulate transition to PO pain meds, will transition to PO abx in AM will remove serina in middle of incision and pack lightly;
[2019-02-16] MEDS ORDERED: 0.9 % Sodium Chloride 1,000 ML IVC SCH (15:25)
[2019-02-16] MEDS: *HR* Rivaroxaban 10 MG TABLET PO SCH (17:38)
[2019-02-16] MEDS: *HR* OxyCODONE Immed Rel 5 MG TABLET PO PRN (17:42)
[2019-02-17] MEDS: Piperacillin/Tazobactam 3.375 GM in 0.9 % Sodium Chloride Mini Bag 100 ML IVPB SCH ×2 (00:32→09:27)
[2019-02-17 06:19] VITALS: BP 120/64
--- NOTE | 2019-02-17 08:43 | Discharge Summary ---
- NOTES TO OUTPATIENT PROVIDER Notes to Outpatient Provider: The patient had exploratory laparotomy and small bowel resection. There is a small area of the midline wound that is being packed. He will be followed in acute care surgery clinic Orders not resulted at time of discharge: Pending orders 02/12/19 03:39 Surgical Pathology [PTH] Routine Date of Encounter: 02/17/19 Time of Encounter: 07:50 - Discharge Diagnosis (1) Small bowel obstruction Priority: Primary Status: Acute Comments: The patient had small bowel obstruction at the point of incision closure. This necessitated small bowel resection. He is made a complete recovery. General Surgery Exam Initial Vital Signs Temp Pulse Resp BP Pulse Ox 98.4 F 86 18 151/90 99 02/11/19 12:48 02/11/19 12:48 02/11/19 12:48 02/11/19 12:48 02/11/19 12:48 - General physical appearance well developed, well nourished, no distress - Respiratory normal expansion, normal respiratory effort, clear to percussion, clear to auscultation - Cardiovascular Cardiovascular exam: Present: RRR, no murmurs/rubs/gallops - Abdomen Abdomen general surgery: Present: bowel sounds present, soft, non tender - Incision Incision: Present: approximated (Small area of packing noted) - Neurologic Present: CN 2-12 grossly intact, normal coordination, normal sensation - Psychiatric Psychiatric general surgery: Present: appropriate, oriented to person, oriented to place, oriented to time, speech is normal, memory intact - Hospital Course Hospital course: Mr. Smith is a 58 year old male Who was admitted with small bowel obstruction. Surgical exploration demonstrated small bowel obstruction at the point of surgical closure. This required small bowel resection and reanastomosis. The patient made a full recovery. - Time Spent with Patient Total time spent providing and/or coordinating discharge services: 30 minutes spent counseling the patient on discharge instructions. Less than 30 minutes Specific discharge activities: Packed the midline wound once per day. Follow-up acute care surgery clinic - Discharge Medications Prescriptions: New Ciprofloxacin [Cipro] 500 mg PO BID #10 tablet Continued HYDROcodone/Acet 5/325 mg [Glen 5-325 mg] 1 tab PO Q6H PRN 6 Days #20 PRN Reason: Pain No Action Dofetilide [Tikosyn] 500 mcg PO Q12H Docusate [Colace] 100 mg PO BID #30 capsule Diltiazem CD (24hr) [Cardizem CD] 120 mg PO QAM DiphenhydraMINE [Benadryl] 50 mg PO HS PRN PRN Reason: Sleep Rivaroxaban [Xarelto] 20 mg PO QAM Tamsulosin [Flomax] 0.4 mg PO HS Home Medications: Dofetilide [Tikosyn] 500 mcg PO Q12H 06/24/18 [History] Diltiazem CD (24hr) [Cardizem CD] 120 mg PO QAM 02/02/19 [History] DiphenhydraMINE [Benadryl] 50 mg PO HS PRN 02/02/19 [History] Docusate [Colace] 100 mg PO BID #30 capsule 02/02/19 [Rx] Rivaroxaban [Xarelto] 20 mg PO QAM 02/02/19 [History] Tamsulosin [Flomax] 0.4 mg PO HS 02/02/19 [History] Ciprofloxacin [Cipro] 500 mg PO BID #10 tablet 02/17/19 [Rx] HYDROcodone/Acet 5/325 mg [Glen 5-325 mg] 1 tab PO Q6H PRN 6 Days #20 02/17/19 [Rx] Allergies/Adverse Reactions: Allergy/AdvReac Type Severity Reaction Status Date / Time No Known Allergies Allergy Verified 02/13/19 12:16 Date of admission: 02/13/19 16:15 Primary care physician: Becky Davis MD Discharging clinician: Adi Tarango Anticipated date of discharge: 02/17/19 Labs on day of discharge: Labs from last 24 hours 02/16/19 02/16/19 02/15/19 08:37 08:37 11:30 WBC 44.7 H* RBC 3.72 L Hgb 10.3 L Hct 32.5 L MCV 87.4 MCH 27.7 L MCHC 31.7 RDW 14.1 Plt Count 323 MPV 9.2 L Immature Gran % 0.4 Seg Neutrophils % 14.9 Lymphocytes % 79.7 Monocytes % 1.5 Eosinophils % 3.2 Basophils % 0.3 Neutrophils # 6.7 Lymphocytes # 35.6 H Monocytes # 0.7 Eosinophils # 1.4 H Basophils # 0.1 Smudge Cells Present A Platelet Estimate Normal Sodium 135 L Potassium 3.9 Chloride 103 Carbon Dioxide 24 BUN 8 Creatinine 0.61 L Est GFR ( Amer) > 60 Est GFR (Non-Af Amer) > 60 BUN/Creatinine Ratio 13 Glucose 118 H POC Glucose 111 H Calculated Osmolality 279 L Calcium 8.2 L Phosphorus 2.2 L Magnesium 2.1 - Impressions ITS Impressions Abdomen/Pelvis CT 02/11/19 15:18 IMPRESSION: 1. CT findings most compatible with a small-bowel obstruction with point of transition identified as a small-bowel containing hernia just inferolateral to the umbilicus, as described above. Surgical consultation is recommended. 2. Postsurgical changes of a cholecystectomy with ill-defined fluid density within the gallbladder fossa which is likely expected in the recent postoperative state. No evidence of an organized drainable fluid collection at this time. D/ / 02/11/2019 17:59:24 Edil Palmer / aleida Interpreting Provider: Edil Palmer - Patient Status Disposition: Home, Self-Care Condition: Fair - Discharge Instructions Follow Up With: Taiwo Schreiber MD [Non-Partnered Physician] - Becky Davis MD [Primary Care Provider] - 02/25/19 11:45 am Additional Instructions: Packed the wound once a day with iodoform. Secondary dressing of gauze and tape - Diet and Activity Activity: increase activity as tolerated Diet: advance to your usual diet
[2019-02-17] MEDS: Diltiazem CD (24hr) 120 MG CAPSULE PO SCH (09:28)
[2019-02-17] MEDS: *HR* OxyCODONE Immed Rel 5 MG TABLET PO PRN ×2 (09:29→11:50)
--- NOTE | 2019-02-17 12:21 | Acute Care Surgery H&P ---
Date of Encounter: 02/11/19 Time of Encounter: 19:57 Assessment and Plan (1) Small bowel obstruction Current Visit: Yes Status: Acute 58M PMH significant for CLL, atrial fibrillation, cancer, cardiomyopathy, COPD, coronary artery disease with a small bowel obstruction 2/2 umbilical hernia; non peritonea; non septic; NPO IVF IV abx OR for UHR History of Present Illness Chief complaint: small bowel obstruction, abdominal discomfort HPI: 58M PMH significant for atrial fibrillation, cancer, cardiomyopathy, COPD, coronary artery disease, hyperlipidemia s/p prior umbilical hernia, cho lecystectomy who presents with 4-5 days of worsening PO intake and nausea and vomiting. No worsening pain, no fevers, chills. IT was reported that during his cholecystectomy that there was difficulty with the entry. A CT scan was obtained, which was reviewed and interpreted by me, which demonstrated a small bowel obstruction with a loop of small bowel which appears to where the point of entry was for the cholecystectomy. Surgery was called by the ED for management recommendations. Past Med Surg Social Fam HX - Past Medical History Medical history: arthritis, atrial fibrillation, cancer, cardiomyopathy, COPD, coronary artery disease, hyperlipidemia, other Additional medical history: Leukemia, Chronic lymphoma leukemia Psychiatric history: no psych history - Past Surgical History Surgical History: cholecystectomy Additional surgical history: Ablation - Social History Smoking Status: Former smoker Smokeless Tobacco Status: No Alcohol use: none Drug use: none - Family History Brother Living Status: Still Living Hx Family Cardiac Disorders: No Hx Family Respiratory Disorders: No Hx Family Cancer: Yes (CLL) Hx Family GI Disorders: No Hx Family Endocrine Disorder: No Hx Family Neuromuscular Disorders: No Hx Family Neurologic Disorders: No Hx Family HEENT Disorders: No Hx Family Autoimmune Disorders: No Mother Family Member Ethnicity: Non- Living Status: Hx Family Cardiac Disorders: Yes (CABG, AFIB) Hx Family Respiratory Disorders: Yes (COPD) Hx Family Cancer: No Hx Family GI Disorders: No Hx Family Endocrine Disorder: Yes (renal diease) Hx Family Neuromuscular Disorders: No Hx Family Neurologic Disorders: No Hx Family HEENT Disorders: No Hx Family Autoimmune Disorders: No Father Family Member Ethnicity: Non- Living Status: Still Living Hx Family Cardiac Disorders: Yes (bad valve, aneysum heart stents, CO) Hx Family Respiratory Disorders: No Hx Family Cancer: No Hx Family GI Disorders: No Hx Family Endocrine Disorder: No Hx Family Neuromuscular Disorders: No Hx Family Neurologic Disorders: No Hx Family HEENT Disorders: No Hx Family Autoimmune Disorders: No Medications and Allergies Dofetilide [Tikosyn] 500 mcg PO Q12H 06/24/18 [History] Diltiazem CD (24hr) [Cardizem CD] 120 mg PO QAM 02/02/19 [History] DiphenhydraMINE [Benadryl] 50 mg PO HS PRN 02/02/19 [History] Docusate [Colace] 100 mg PO BID #30 capsule 02/02/19 [Rx] Rivaroxaban [Xarelto] 20 mg PO QAM 02/02/19 [History] Tamsulosin [Flomax] 0.4 mg PO HS 02/02/19 [History] Ciprofloxacin [Cipro] 500 mg PO BID #10 tablet 02/17/19 [Rx] HYDROcodone/Acet 5/325 mg [Rochelle 5-325 mg] 1 tab PO Q6H PRN 6 Days #20 02/17/19 [Rx] Allergy/AdvReac Type Severity Reaction Status Date / Time No Known Allergies Allergy Verified 02/13/19 12:16 Review of Systems All systems PM: 12 point ROS negative besides HPI findings General Surgery Exam Initial Vital Signs Temp Pulse Resp BP Pulse Ox 98.4 F 86 18 151/90 99 02/11/19 12:48 02/11/19 12:48 02/11/19 12:48 02/11/19 12:48 02/11/19 12:48 - General physical appearance no distress - Eyes PERRL, normal ocular movement - ENT normocephalic - Neck trachea midline, no lymphadectomy - Respiratory normal expansion, normal respiratory effort - Cardiovascular Cardiovascular exam: Present: RRR - Abdomen Abdomen general surgery: Present: soft, distended, tender (non peritoneal) - Incision Incision: Present: clean and dry, intact - Integumentary Integumentary general surgery: Present: warm and dry - Neurologic Present: CN 2-12 grossly intact - Musculoskeletal Present: normal posture - Psychiatric Psychiatric general surgery: Present: A&Ox3 Results - Labs 02/16/19 08:37 02/16/19 08:37 Abnormal lab results WBC 44.7 K/mcL (4.3-11.1) H* 02/16/19 08:37 RBC 3.72 M/mcL (4.19-5.50) L 02/16/19 08:37 Hgb 10.3 g/dL (12.9-16.9) L 02/16/19 08:37 Hct 32.5 % (37.5-50.1) L 02/16/19 08:37 MCH 27.7 pg (28.0-33.3) L 02/16/19 08:37 MCHC 31.4 g/dL (31.6-35.5) L 02/11/19 14:21 MPV 9.2 fL (9.4-12.4) L 02/16/19 08:37 11.2 K/mcL (1.6-8.9) H 02/14/19 15:49 35.6 K/mcL (0.6-4.6) H 02/16/19 08:37 2.2 K/mcL (0.0-1.3) H 02/12/19 11:54 1.4 K/mcL (0.0-0.6) H 02/16/19 08:37 Present (Not Present) A 02/13/19 05:08 Present (Not Present) A 02/16/19 08:37 PT 16.3 Seconds (9.4-12.1) H 02/14/19 01:20 Sodium 135 mEq/L (136-145) L 02/16/19 08:37 Chloride 97 mEq/L (98-107) L 02/14/19 01:20 0.61 mg/dL (0.70-1.30) L 02/16/19 08:37 Glucose 118 mg/dL (70-105) H 02/16/19 08:37 POC Glucose 111 mg/dL (70-99) H 02/15/19 11:30 279 (280-300) L 02/16/19 08:37 Calcium 8.2 mg/dL (8.6-10.3) L 02/16/19 08:37 Phosphorus 2.2 mg/dL (2.7-4.5) L 02/16/19 08:37 ALT 87 Units/L (7-52) H 02/11/19 14:21 122 Units/L (34-104) H 02/11/19 14:21 9 Units/L (11-82) L 02/11/19 14:21 100 mg/dL (Neg-Trace) H 02/14/19 16:40 80 mg/dL (Negative) H 02/14/19 16:40 Small (Negative) H 02/14/19 16:40 Ur Squamous Epith Cells Many per lpf (None-Few) H 02/14/19 16:40 All other labs normal. - Imaging CT scan - abdomen: report reviewed, image reviewed CT scan - pelvis: report reviewed, image reviewed
== END 2019-02-17 13:10 | disposition home or self-care (01) | DRG 330 ==
LOC: 3ANU 12:47 → EMEROOARM 12:47 → 3ANU 20:52 → 2NNU 02-14 18:58
PROVIDERS: ADMIT Surgery; ATTEND Surgery

== ENCOUNTER 2019-02-22 14:34 | Inpatient (IN) ==
[2019-02-22] MEDS ORDERED: Ondansetron 4 MG/2 ML VIAL IVP ONE (14:59)
[2019-02-22] MEDS ORDERED: 0.9 % Sodium Chloride 1,000 ML IVC ONE (14:59)
[2019-02-22] MEDS ORDERED: *HR* HYDROmorphone (PF) 1 MG/ML SYRINGE IVP ONE ×2 (15:09→16:47)
[2019-02-22 15:42] LABS: Bilirubin,Urine Small (Negative); Blood,Urine Negative (Negative); Clarity,Urine Clear (Clear); Color,Urine Yellow (Yellow); Glucose,Urine (UA) Normal (Normal); Ketones,Urine Negative (Negative); Leukocyte Esterase,Urine Negative (Negative); Nitrite,Urine Negative (Negative); PH,Urine 7.5 pH Units (5.0-8.0); Protein,Urine Trace mg/dL (Neg-Trace); Specific Gravity,Urine > 1.030 (1.010-1.025)
[2019-02-22 16:06] LABS: Red Cell Distribution Width 14.2 % (11.5-14.5)
[2019-02-22 16:07] LABS: Hemoglobin 11.9 g/dL (12.9-16.9); Mean Corpuscular HGB Conc 31.3 g/dL (31.6-35.5); Mean Corpuscular Hemoglobin 27.4 pg (28.0-33.3); Mean Corpuscular Volume 87.6 fL (83.0-100.0); Platelet Count 337 K/mcL (140-400); Red Blood Count 4.34 M/mcL (4.19-5.50)
[2019-02-22 16:15] LABS: INR 1.8; Prothrombin Time 20.9 Seconds (9.4-12.1)
[2019-02-22 16:17] LABS: Activated Partial Thrombo Time 46.6 Seconds (26.0-36.0)
[2019-02-22] MEDS ORDERED: Isovue-370 500 ML BOTTLE PO ONE (16:24)
[2019-02-22 16:27] LABS: Alanine Aminotransferase 54 Units/L (7-52); Albumin 3.7 g/dL (3.5-5.7); Albumin/Globulin Ratio 1.3 (1.1-2.2); Alkaline Phosphatase 91 Units/L (34-104); Aspartate Amino Transferase 33 Units/L (13-39); BUN/Creatinine Ratio 20 (6-26); Bilirubin,Direct 0.1 mg/dL (0.0-0.2); Bilirubin,Indirect 0.5 mg/dL (0.0-1.2); Bilirubin,Total 0.6 mg/dL (0.3-1.0); Blood Urea Nitrogen 14 mg/dL (6-20); Carbon Dioxide 26 mEq/L (23-29); Chloride 105 mEq/L (98-107); Globulin 2.8 g/dL (2.4-3.5); Glucose 129 mg/dL (70-105); Lipase 6 Units/L (11-82); Osmolality,Calculated 288 (280-300); Potassium 4.5 mEq/L (3.5-5.1); Sodium 138 mEq/L (136-145); Total Protein 6.5 g/dL (6.4-8.9); White Blood Count 43.6 K/mcL (4.3-11.1); eGFR For African Americans > 60 (> 60); eGFR For Non-African Americans > 60 (> 60)
[2019-02-22 16:48] LABS: Lymphocytes # 36.6 K/mcL (0.6-4.6); Monocytes # 0.9 K/mcL (0.0-1.3); Neutrophils # 6.1 K/mcL (1.6-8.9)
[2019-02-22 16:50] LABS: Platelet Estimate Normal (Normal); Smudge Cells Present (Not Present)
[2019-02-22] MEDS ORDERED: Naloxone 0.4 MG/ML INJ IVP PRN (18:02)
[2019-02-22] MEDS: 0.9 % Sodium Chloride 1,000 ML IVC SCH (20:09)
[2019-02-23 05:46] LABS: Hemoglobin 11.3 g/dL (12.9-16.9)
[2019-02-23 05:48] LABS: Hematocrit 35.4 % (37.5-50.1); Mean Corpuscular HGB Conc 31.9 g/dL (31.6-35.5); Mean Corpuscular Hemoglobin 28.1 pg (28.0-33.3); Mean Corpuscular Volume 88.1 fL (83.0-100.0); Mean Platelet Volume 9.2 fL (9.4-12.4); Platelet Count 315 K/mcL (140-400); Red Blood Count 4.02 M/mcL (4.19-5.50); Red Cell Distribution Width 14.1 % (11.5-14.5)
[2019-02-23] MEDS: 0.9 % Sodium Chloride 1,000 ML IVC SCH (05:48)
[2019-02-23 05:58] LABS: White Blood Count 38.6 K/mcL (4.3-11.1)
[2019-02-23] MEDS ORDERED: *HR* Heparin 5,000 UNIT/ML VIAL SQ SCH (06:00)
[2019-02-23 06:09] LABS: BUN/Creatinine Ratio 19 (6-26); Blood Urea Nitrogen 14 mg/dL (6-20); Calcium 8.6 mg/dL (8.6-10.3); Carbon Dioxide 27 mEq/L (23-29); Chloride 103 mEq/L (98-107); Glucose 126 mg/dL (70-105); Magnesium 2.2 mg/dL (1.6-2.6); Osmolality,Calculated 286 (280-300); Phosphorous 3.2 mg/dL (2.7-4.5); Potassium 4.3 mEq/L (3.5-5.1); Sodium 137 mEq/L (136-145); eGFR For African Americans > 60 (> 60); eGFR For Non-African Americans > 60 (> 60)
[2019-02-23 06:39] LABS: Lymphocytes # 22.4 K/mcL (0.6-4.6); Monocytes # 0.8 K/mcL (0.0-1.3); Neutrophils # 15.4 K/mcL (1.6-8.9); Platelet Estimate Normal (Normal); Smudge Cells Present (Not Present)
[2019-02-23] MEDS: DilTIAZem CD (24hr) 120 MG CAP.ER.24H PO SCH (08:51)
[2019-02-23] MEDS ORDERED: NON-FORMULARY MEDICATION 1 EACH EACH (Rivaroxaban [Xarelto] 20 MG) PO SCH (09:00)
[2019-02-23] MEDS ORDERED: Chloraseptic Spray 177 ML BOTTLE MM PRN (11:05)
[2019-02-23] MEDS ORDERED: *HR* Rivaroxaban 10 MG TABLET PO SCH (17:00)
[2019-02-23] MEDS: Ondansetron ODT 4 MG TAB.RAPDIS SL PRN (18:48)
[2019-02-24 05:20] LABS: BUN/Creatinine Ratio 23 (6-26); Blood Urea Nitrogen 19 mg/dL (6-20); Calcium 9.3 mg/dL (8.6-10.3); Carbon Dioxide 26 mEq/L (23-29); Chloride 99 mEq/L (98-107); Glucose 119 mg/dL (70-105); Osmolality,Calculated 291 (280-300); Potassium 4.2 mEq/L (3.5-5.1); Sodium 139 mEq/L (136-145); eGFR For African Americans > 60 (> 60); eGFR For Non-African Americans > 60 (> 60)
[2019-02-24] MEDS: Ondansetron ODT 4 MG TAB.RAPDIS SL PRN (05:44)
[2019-02-24] MEDS ORDERED: Ondansetron 4 MG/2 ML VIAL IVP STA (09:19)
[2019-02-24] MEDS: *HR* Promethazine 25 MG/ML VIAL IVP PRN ×2 (09:29→23:25)
[2019-02-24] MEDS: DilTIAZem CD (24hr) 120 MG CAP.ER.24H PO SCH (12:11)
[2019-02-24] MEDS ORDERED: Ondansetron 4 MG/2 ML VIAL IVP ONE (13:13)
[2019-02-24] MEDS ORDERED: *HR* Promethazine 25 MG/ML VIAL IVP ONE (13:13)
[2019-02-24] MEDS ORDERED: Scopolamine Patch 1.5 MG PATCH.TD72 TD ONE (13:19)
[2019-02-24] MEDS ORDERED: ceFAZolin 2,000 MG in Water for inj. (sterile) 20 ML IVP ONE (14:36)
[2019-02-24 15:06] LABS: Red Blood Count 5.42 M/mcL (4.19-5.50)
[2019-02-24 15:08] LABS: Hematocrit 47.4 % (37.5-50.1); Hemoglobin 14.7 g/dL (12.9-16.9); Mean Corpuscular Hemoglobin 27.1 pg (28.0-33.3); Mean Corpuscular Volume 87.5 fL (83.0-100.0); Mean Platelet Volume 9.1 fL (9.4-12.4); Platelet Count 416 K/mcL (140-400)
[2019-02-24 15:37] LABS: White Blood Count 57.3 K/mcL (4.3-11.1)
[2019-02-24] MEDS ORDERED: Water for inj. (sterile) 20 ML ONE (15:37)
[2019-02-24 15:47] LABS: Lymphocytes # 43.6 K/mcL (0.6-4.6); Monocytes # 1.2 K/mcL (0.0-1.3); Neutrophils # 12.6 K/mcL (1.6-8.9)
[2019-02-24 15:48] LABS: Platelet Estimate Normal (Normal); Smudge Cells Present (Not Present)
[2019-02-24] MEDS: 0.9 % Sodium Chloride 1,000 ML IVC SCH (15:48)
[2019-02-24 17:17] LABS: Bilirubin,Urine Moderate (Negative); Blood,Urine Moderate (Negative); Clarity,Urine Clear (Clear); Color,Urine Dark Yellow (Yellow); Glucose,Urine (UA) Normal (Normal); Ketones,Urine 15 mg/dL (Negative); Leukocyte Esterase,Urine Negative (Negative); Nitrite,Urine Negative (Negative); PH,Urine 5.5 pH Units (5.0-8.0); Protein,Urine 30 mg/dL (Neg-Trace); Specific Gravity,Urine > 1.030 (1.010-1.025); Urobilinogen,Urine Normal (Normal)
[2019-02-24 17:19] LABS: Bacteria,Urine None Seen per hpf (None-Few); Hyaline Casts,Urine Few per lpf (None-Few); RBC,Urine 30-50 per hpf (0-3); Squamous Epithelial Cell,Urine Many per lpf (None-Few)
[2019-02-24] MEDS ORDERED: Orphenadrine 60 MG/2 ML VIAL IVP PRN (19:06)
[2019-02-25] MEDS: 0.9 % Sodium Chloride 1,000 ML IVC SCH ×4 (01:30→23:46)
[2019-02-25] MEDS: Ondansetron 4 MG/2 ML VIAL IVP PRN ×2 (04:46→15:25)
[2019-02-25 06:54] LABS: Red Cell Distribution Width 14.1 % (11.5-14.5)
[2019-02-25 06:56] LABS: Mean Corpuscular HGB Conc 31.8 g/dL (31.6-35.5); Mean Corpuscular Hemoglobin 27.2 pg (28.0-33.3); Mean Corpuscular Volume 85.4 fL (83.0-100.0); Mean Platelet Volume 9.5 fL (9.4-12.4); Platelet Count 422 K/mcL (140-400); Red Blood Count 5.15 M/mcL (4.19-5.50)
[2019-02-25 06:58] LABS: BUN/Creatinine Ratio 36 (6-26); Blood Urea Nitrogen 36 mg/dL (6-20); Calcium 10.1 mg/dL (8.6-10.3); Carbon Dioxide 26 mEq/L (23-29); Chloride 101 mEq/L (98-107); Glucose 148 mg/dL (70-105); Magnesium 2.4 mg/dL (1.6-2.6); Osmolality,Calculated 305 (280-300); Potassium 4.1 mEq/L (3.5-5.1); Sodium 142 mEq/L (136-145); eGFR For African Americans > 60 (> 60); eGFR For Non-African Americans > 60 (> 60)
[2019-02-25 07:03] LABS: White Blood Count 65.9 K/mcL (4.3-11.1)
[2019-02-25 07:51] LABS: Smudge Cells Present (Not Present)
[2019-02-25 07:53] LABS: Lymphocytes # 44.8 K/mcL (0.6-4.6); Monocytes # 1.3 K/mcL (0.0-1.3); Neutrophils # 19.8 K/mcL (1.6-8.9); Platelet Estimate Normal (Normal)
[2019-02-25] MEDS ORDERED: Lidocaine -MPF 1% 5 ML AMPUL INFILT ONE (13:47)
[2019-02-25] MEDS ORDERED: D10% in Water 500 ML IVC PRN (14:17)
[2019-02-25] MEDS ORDERED: *HR* Midazolam HCl 2 MG/2 ML VIAL ONE (16:48)
[2019-02-25] MEDS ORDERED: *HR* FentaNYL (PF) 100 MCG/2 ML VIAL ONE ×3 (16:48→20:46)
[2019-02-25] MEDS ORDERED: *HR* Propofol 200 MG/20 ML VIAL IVP ONE (16:49)
[2019-02-25] MEDS ORDERED: Lidocaine -MPF 2% 2 ML VIAL ONE (16:56)
[2019-02-25] MEDS ORDERED: Lidocaine -MPF 4% 5 ML AMPUL ONE (16:56)
[2019-02-25] MEDS ORDERED: *HR* Succinylcholine 200 MG/10 ML VIAL IVP ONE (16:56)
[2019-02-25] MEDS ORDERED: Ondansetron 4 MG/2 ML VIAL ONE (16:56)
[2019-02-25] MEDS ORDERED: Clinimix E 5%-15% SOLUTION 2,000 ML with MVI, adult with vitamin K 10 ML IVC SCH ×2 (17:00→22:25)
[2019-02-25] MEDS ORDERED: *HR* Rocuronium Bromide 50 MG/5 ML VIAL ONE (17:37)
[2019-02-25] MEDS ORDERED: Acetaminophen IV 1,000 MG/100 ML INFUS..BTL ONE (17:40)
[2019-02-25] MEDS ORDERED: *HR* PHENYLEPHRINE 1,000 MCG/10 ML SYRINGE IVP ONE (18:32)
[2019-02-25] MEDS ORDERED: CefOXitin 2,000 MG VIAL ONE ×3 (18:41→19:35)
[2019-02-25] MEDS ORDERED: *HR* Labetalol 20 MG/4 ML SYRINGE IVP ONE (19:15)
[2019-02-25] MEDS ORDERED: Ropivacaine/PF 0.5% 30 ML VIAL ONE (20:28)
[2019-02-25] MEDS ORDERED: *HR* HYDROMORPHONE 2 MG/ML VIAL ONE (20:46)
[2019-02-25] MEDS ORDERED: *HR* HYDROmorphone 2 MG/ML SYRINGE ONE (21:42)
[2019-02-25] MEDS ORDERED: *HR* OxyCODONE Immed Rel 5 MG TABLET PO PRN (21:44)
[2019-02-25] MEDS ORDERED: Albuterol 2.5 MG/3 ML NEBULIZER IH ONE (21:44)
[2019-02-25] MEDS: *HR* HYDROmorphone (PF) 1 MG/ML SYRINGE IVP PRN ×2 (21:44→21:55)
[2019-02-25] MEDS ORDERED: *HR* Nalbuphine 10 MG/ML AMPUL IV PRN (21:45)
[2019-02-25] MEDS ORDERED: Ondansetron ODT 4 MG TAB.RAPDIS SL PRN (22:25)
[2019-02-25] MEDS ORDERED: Ketorolac 30 MG/ML VIAL IVP ONE (22:25)
[2019-02-25] MEDS ORDERED: Chloraseptic Spray 177 ML BOTTLE MM PRN (22:25)
[2019-02-25] MEDS ORDERED: Naloxone 0.4 MG/ML INJ IVP PRN (22:25)
[2019-02-25] MEDS ORDERED: *HR* Metoprolol 5 MG/5 ML VIAL IVP PRN (22:25)
[2019-02-25 23:07] LABS: Basophils # 0.1 K/mcL (0.0-0.2); Basophils % 0.1 %; Eosinophils # 0.1 K/mcL (0.0-0.6); Eosinophils % 0.1 %; Hematocrit 42.4 % (37.5-50.1); Hemoglobin 13.1 g/dL (12.9-16.9); Immature Granulocytes % 0.3 % (0-4); Lymphocytes # 57.8 K/mcL (0.6-4.6); Lymphocytes % 82.6 %; Mean Corpuscular HGB Conc 30.9 g/dL (31.6-35.5); Mean Corpuscular Hemoglobin 27.5 pg (28.0-33.3); Mean Corpuscular Volume 88.9 fL (83.0-100.0); Mean Platelet Volume 9.1 fL (9.4-12.4); Monocytes # 0.5 K/mcL (0.0-1.3); Monocytes % 0.7 %; Neutrophils # 11.3 K/mcL (1.6-8.9); Platelet Count 417 K/mcL (140-400); Red Blood Count 4.77 M/mcL (4.19-5.50); Red Cell Distribution Width 14.2 % (11.5-14.5); Segmented Neutrophils % 16.2 %
[2019-02-25] MEDS: Morphine PCA 30 MG/ 30 ML 30 ML PCA.VIAL IVC PRN (23:08)
[2019-02-25 23:34] LABS: Smudge Cells Present (Not Present)
[2019-02-25 23:35] LABS: Platelet Estimate Normal (Normal)
[2019-02-26 01:42] LABS: VBG Ionized Calcium 1.16 mmol/L (1.15-1.35)
[2019-02-26 01:54] LABS: BUN/Creatinine Ratio 39 (6-26); Blood Urea Nitrogen 36 mg/dL (6-20); Calcium 8.4 mg/dL (8.6-10.3); Carbon Dioxide 27 mEq/L (23-29); Chloride 107 mEq/L (98-107); Glucose 194 mg/dL (70-105); Magnesium 2.1 mg/dL (1.6-2.6); Osmolality,Calculated 304 (280-300); Sodium 140 mEq/L (136-145); Triglycerides 135 mg/dL (< 150); eGFR For African Americans > 60 (> 60); eGFR For Non-African Americans > 60 (> 60)
[2019-02-26] MEDS: *HR* Heparin 5,000 UNIT/ML VIAL SQ SCH ×2 (06:52→17:49)
[2019-02-26] MEDS: Morphine PCA 30 MG/ 30 ML 30 ML PCA.VIAL IVC PRN ×2 (06:53→16:23)
[2019-02-26] MEDS: 0.9 % Sodium Chloride 1,000 ML IVC SCH ×2 (06:59→16:52)
[2019-02-26] MEDS: Pantoprazole 40 MG VIAL IVP SCH (08:38)
[2019-02-26] MEDS ORDERED: DilTIAZem CD (24hr) 120 MG CAP.ER.24H PO SCH (09:00)
[2019-02-26] MEDS: *HR* Promethazine 25 MG/ML VIAL IVP PRN (09:36)
[2019-02-26] MEDS ORDERED: Clinimix E 5%-15% SOLUTION 2,000 ML with MVI, adult with vitamin K 10 ML IVC SCH ×2 (17:00)
[2019-02-26] MEDS: Piperacillin/Tazobactam 3.375 GM in 0.9 % Sodium Chloride Mini Bag 100 ML IVPB SCH (20:33)
[2019-02-27] MEDS: Morphine PCA 30 MG/ 30 ML 30 ML PCA.VIAL IVC PRN ×3 (01:30→18:11)
[2019-02-27] MEDS: Piperacillin/Tazobactam 3.375 GM in 0.9 % Sodium Chloride Mini Bag 100 ML IVPB SCH ×3 (05:00→22:06)
[2019-02-27] MEDS: *HR* Heparin 5,000 UNIT/ML VIAL SQ SCH (05:15)
[2019-02-27 07:02] LABS: BUN/Creatinine Ratio 32 (6-26); Blood Urea Nitrogen 22 mg/dL (6-20); Calcium 7.9 mg/dL (8.6-10.3); Carbon Dioxide 28 mEq/L (23-29); Chloride 108 mEq/L (98-107); Glucose 165 mg/dL (70-105); Magnesium 1.9 mg/dL (1.6-2.6); Osmolality,Calculated 295 (280-300); Phosphorous 2.5 mg/dL (2.7-4.5); Potassium 5.2 mEq/L (3.5-5.1); Sodium 139 mEq/L (136-145); eGFR For African Americans > 60 (> 60); eGFR For Non-African Americans > 60 (> 60)
[2019-02-27] MEDS ORDERED: *HR* Heparin 5,000 UNIT/ML VIAL IVP PRN (07:23)
[2019-02-27] MEDS ORDERED: *HR* Heparin 5,000 UNIT/ML VIAL IVP ONE (07:23)
[2019-02-27] MEDS: Pantoprazole 40 MG VIAL IVP SCH (07:40)
[2019-02-27] MEDS: DilTIAZem 50 MG in 0.9 % Sodium Chloride 40 ML IVC SCH ×2 (09:36→16:50)
[2019-02-27] MEDS ORDERED: Calcium Gluconate 2,000 MG in 0.9 % Sodium Chloride 100 ML IVPB ONE (09:56)
[2019-02-27] MEDS: 0.9 % Sodium Chloride 1,000 ML IVC SCH ×2 (10:03→16:06)
[2019-02-27] MEDS: Heparin 25,000 UNIT/250 ML D5W 25,000 UNIT/250 ML IV.SOLN IVC SCH (10:23)
[2019-02-27] MEDS: Calcium Gluconate 1gm/50mL 1 GM/50 ML BAG IVPB SCH ×2 (11:36→13:29)
[2019-02-27] MEDS ORDERED: Clinimix E 5%-15% SOLUTION 2,000 ML with MVI, adult with vitamin K 10 ML IVC SCH ×2 (17:00)
[2019-02-27] MEDS: *HR* Promethazine 25 MG/ML VIAL IVP PRN (19:46)
[2019-02-28] MEDS: Heparin 25,000 UNIT/250 ML D5W 25,000 UNIT/250 ML IV.SOLN IVC SCH ×2 (00:42→18:49)
[2019-02-28] MEDS: DilTIAZem 50 MG in 0.9 % Sodium Chloride 40 ML IVC SCH ×3 (02:25→23:32)
[2019-02-28 04:23] LABS: VBG Ionized Calcium 1.15 mmol/L (1.15-1.35)
[2019-02-28 04:50] LABS: BUN/Creatinine Ratio 32 (6-26); Blood Urea Nitrogen 19 mg/dL (6-20); Carbon Dioxide 30 mEq/L (23-29); Chloride 102 mEq/L (98-107); Glucose 170 mg/dL (70-105); Magnesium 1.9 mg/dL (1.6-2.6); Osmolality,Calculated 290 (280-300); Phosphorous 2.6 mg/dL (2.7-4.5); Potassium 3.6 mEq/L (3.5-5.1); Sodium 137 mEq/L (136-145); eGFR For African Americans > 60 (> 60); eGFR For Non-African Americans > 60 (> 60)
[2019-02-28] MEDS: Piperacillin/Tazobactam 3.375 GM in 0.9 % Sodium Chloride Mini Bag 100 ML IVPB SCH ×3 (05:28→20:58)
[2019-02-28] MEDS: Morphine PCA 30 MG/ 30 ML 30 ML PCA.VIAL IVC PRN ×2 (06:42→13:30)
[2019-02-28] MEDS: 0.9 % Sodium Chloride 1,000 ML IVC SCH ×2 (08:04→18:07)
[2019-02-28] MEDS: Pantoprazole 40 MG VIAL IVP SCH (08:04)
[2019-02-28] MEDS ORDERED: D10% in Water 500 ML IVC PRN (09:50)
[2019-02-28] MEDS ORDERED: Orphenadrine 60 MG/2 ML VIAL IVP ONE (16:06)
[2019-02-28] MEDS ORDERED: Clinimix E 5%-15% SOLUTION 2,000 ML with MVI, adult with vitamin K 10 ML IVC SCH (17:00)
[2019-02-28] MEDS: Ketorolac 15 MG/ML VIAL IVP SCH ×3 (17:31→23:39)
[2019-02-28] MEDS: Acetaminophen IV 1,000 MG/100 ML INFUS..BTL IVPB SCH ×2 (18:02→23:38)
[2019-02-28] MEDS: Ondansetron 4 MG/2 ML VIAL IVP PRN (20:54)
[2019-03-01 00:50] LABS: VBG Ionized Calcium 0.95 mmol/L (1.15-1.35)
[2019-03-01 01:07] LABS: BUN/Creatinine Ratio 31 (6-26); Blood Urea Nitrogen 15 mg/dL (6-20); Carbon Dioxide 25 mEq/L (23-29); Chloride 101 mEq/L (98-107); Glucose 229 mg/dL (70-105); Magnesium 1.8 mg/dL (1.6-2.6); Osmolality,Calculated 286 (280-300); Phosphorous 2.7 mg/dL (2.7-4.5); Potassium 3.1 mEq/L (3.5-5.1); Sodium 134 mEq/L (136-145); eGFR For African Americans > 60 (> 60); eGFR For Non-African Americans > 60 (> 60)
[2019-03-01 01:15] LABS: Hematocrit 27.8 % (37.5-50.1)
[2019-03-01 01:21] LABS: Hemoglobin 8.7 g/dL (12.9-16.9)
[2019-03-01] MEDS: Morphine PCA 30 MG/ 30 ML 30 ML PCA.VIAL IVC PRN ×3 (02:41→19:52)
[2019-03-01] MEDS: Piperacillin/Tazobactam 3.375 GM in 0.9 % Sodium Chloride Mini Bag 100 ML IVPB SCH ×3 (05:08→20:10)
[2019-03-01] MEDS: Ketorolac 15 MG/ML VIAL IVP SCH ×4 (05:20→23:47)
[2019-03-01] MEDS: Acetaminophen IV 1,000 MG/100 ML INFUS..BTL IVPB SCH ×4 (05:22→23:10)
[2019-03-01] MEDS ORDERED: Potassium Chloride 40 MEQ, Lidocaine 1% 2 ML in D5% in Water 500 ML IVPB ONE ×2 (08:08→13:00)
[2019-03-01] MEDS ORDERED: *HR* Dextrose 50 % in Water (Syg) 50 ML SYRINGE IVP PRN (08:35)
[2019-03-01] MEDS ORDERED: Dextrose Gel 15 GM/37.5 ML TUBE PO PRN ×2 (08:35)
[2019-03-01] MEDS ORDERED: D5% in Water 1,000 ML IVC PRN (08:35)
[2019-03-01] MEDS ORDERED: Furosemide 40 MG/4 ML VIAL IVP ONE (08:46)
[2019-03-01 09:23] LABS: Basophils # 0.1 K/mcL (0.0-0.2); Basophils % 0.2 %; Eosinophils % 5.5 %; Hematocrit 29.8 % (37.5-50.1); Hemoglobin 9.2 g/dL (12.9-16.9); Immature Granulocytes % 0.4 % (0-4); Lymphocytes # 28.1 K/mcL (0.6-4.6); Lymphocytes % 75.6 %; Mean Corpuscular HGB Conc 30.9 g/dL (31.6-35.5); Mean Corpuscular Hemoglobin 27.4 pg (28.0-33.3); Mean Corpuscular Volume 88.7 fL (83.0-100.0); Mean Platelet Volume 9.5 fL (9.4-12.4); Monocytes # 0.7 K/mcL (0.0-1.3); Monocytes % 1.9 %; Neutrophils # 6.1 K/mcL (1.6-8.9); Platelet Count 242 K/mcL (140-400); Red Blood Count 3.36 M/mcL (4.19-5.50); Red Cell Distribution Width 14.5 % (11.5-14.5); Segmented Neutrophils % 16.4 %
[2019-03-01] MEDS: Metoclopramide 10 MG/2 ML VIAL IVP SCH ×3 (09:34→23:47)
[2019-03-01] MEDS: Pantoprazole 40 MG VIAL IVP SCH (09:34)
[2019-03-01] MEDS: Bisacodyl 10 MG RECTAL SUPPOSITORY RC SCH (09:35)
[2019-03-01 09:39] LABS: % Iron Saturation 10 % (20-55); BUN/Creatinine Ratio 26 (6-26); Blood Urea Nitrogen 15 mg/dL (6-20); Calcium 7.9 mg/dL (8.6-10.3); Carbon Dioxide 28 mEq/L (23-29); Chloride 104 mEq/L (98-107); Glucose 142 mg/dL (70-105); Iron 19 mcg/dL (65-175); Osmolality,Calculated 287 (280-300); Potassium 3.4 mEq/L (3.5-5.1); Sodium 137 mEq/L (136-145); Transferrin 133 mg/dL (203-362); eGFR For African Americans > 60 (> 60); eGFR For Non-African Americans > 60 (> 60)
[2019-03-01 09:41] LABS: Eosinophils # 2.1 K/mcL (0.0-0.6)
[2019-03-01 09:43] LABS: White Blood Count 37.2 K/mcL (4.3-11.1)
[2019-03-01 10:10] LABS: Platelet Estimate Normal (Normal); Smudge Cells Present (Not Present)
[2019-03-01] MEDS: Insulin LISPRO 300 UNITS/3 ML VIAL SQ SCH ×2 (12:02→16:37)
[2019-03-01] MEDS: Iron Sucrose Complex 250 MG in 0.9 % Sodium Chloride 250 ML IVPB SCH (12:03)
[2019-03-01] MEDS: DilTIAZem 50 MG in 0.9 % Sodium Chloride 40 ML IVC SCH ×2 (12:04→23:10)
[2019-03-01] MEDS: Heparin 25,000 UNIT/250 ML D5W 25,000 UNIT/250 ML IV.SOLN IVC SCH (12:05)
[2019-03-01] MEDS ORDERED: HydrOXYzine 100 MG/2 ML VIAL IM ONE (13:04)
[2019-03-01] MEDS ORDERED: Clinimix E 5%-15% SOLUTION 2,000 ML, Parenteral Amino Acid 10% 250 ML with MVI, adult ... IVC SCH (17:00)
[2019-03-01] MEDS: *HR* Heparin 5,000 UNIT/ML VIAL IVP PRN (17:46)
[2019-03-02] MEDS: Insulin LISPRO 300 UNITS/3 ML VIAL SQ SCH ×6 (00:13→23:24)
[2019-03-02 01:49] LABS: VBG Ionized Calcium 0.99 mmol/L (1.15-1.35)
[2019-03-02 03:36] LABS: BUN/Creatinine Ratio 28 (6-26); Blood Urea Nitrogen 13 mg/dL (6-20); Calcium 7.9 mg/dL (8.6-10.3); Carbon Dioxide 23 mEq/L (23-29); Chloride 100 mEq/L (98-107); Glucose 239 mg/dL (70-105); Magnesium 2.4 mg/dL (1.6-2.6); Osmolality,Calculated 282 (280-300); Phosphorous 3.1 mg/dL (2.7-4.5); Potassium 4.1 mEq/L (3.5-5.1); Sodium 132 mEq/L (136-145); eGFR For African Americans > 60 (> 60); eGFR For Non-African Americans > 60 (> 60)
[2019-03-02] MEDS: Piperacillin/Tazobactam 3.375 GM in 0.9 % Sodium Chloride Mini Bag 100 ML IVPB SCH ×3 (04:18→20:22)
[2019-03-02] MEDS: Acetaminophen IV 1,000 MG/100 ML INFUS..BTL IVPB SCH ×4 (04:19→23:26)
[2019-03-02] MEDS: Ketorolac 15 MG/ML VIAL IVP SCH ×4 (04:19→23:26)
[2019-03-02] MEDS: Calcium Gluconate 1gm/50mL 1 GM/50 ML BAG IVPB PRN (05:41)
[2019-03-02] MEDS ORDERED: *HR* FentaNYL (PF) 100 MCG/2 ML VIAL IVP ONE (07:38)
[2019-03-02] MEDS ORDERED: Insulin LISPRO 300 UNITS/3 ML VIAL SQ SCH (07:43)
[2019-03-02] MEDS: Metoclopramide 10 MG/2 ML VIAL IVP SCH (07:44)
[2019-03-02] MEDS: Pantoprazole 40 MG VIAL IVP SCH (07:44)
[2019-03-02] MEDS: Morphine PCA 30 MG/ 30 ML 30 ML PCA.VIAL IVC PRN ×2 (07:51→22:07)
[2019-03-02] MEDS: Iron Sucrose Complex 250 MG in 0.9 % Sodium Chloride 250 ML IVPB SCH (09:42)
[2019-03-02] MEDS: Heparin 25,000 UNIT/250 ML D5W 25,000 UNIT/250 ML IV.SOLN IVC SCH ×2 (09:43→13:14)
[2019-03-02] MEDS: DilTIAZem 50 MG in 0.9 % Sodium Chloride 40 ML IVC SCH ×2 (09:43→17:25)
[2019-03-02] MEDS: Bisacodyl 10 MG RECTAL SUPPOSITORY RC SCH (10:42)
[2019-03-02 12:09] LABS: VBG Ionized Calcium 1.14 mmol/L (1.15-1.35)
[2019-03-02] MEDS ORDERED: Clinimix E 5%-15% SOLUTION 2,000 ML, Parenteral Amino Acid 10% 250 ML with MVI, adult ... IVC SCH (17:00)
[2019-03-02] MEDS: *HR* Promethazine 25 MG/ML VIAL IVP PRN (20:22)
[2019-03-02] MEDS: Ondansetron 4 MG/2 ML VIAL IVP PRN (23:33)
[2019-03-03] MEDS: DilTIAZem 50 MG in 0.9 % Sodium Chloride 40 ML IVC SCH ×3 (00:24→20:22)
[2019-03-03] MEDS: Heparin 25,000 UNIT/250 ML D5W 25,000 UNIT/250 ML IV.SOLN IVC SCH ×2 (01:21→14:53)
[2019-03-03 05:06] LABS: VBG Ionized Calcium 1.09 mmol/L (1.15-1.35)
[2019-03-03 05:09] LABS: Eosinophils % 5.7 %; Red Cell Distribution Width 14.4 % (11.5-14.5)
[2019-03-03 05:11] LABS: Basophils % 0.1 %; Hematocrit 28.2 % (37.5-50.1); Hemoglobin 8.7 g/dL (12.9-16.9); Immature Granulocytes % 0.7 % (0-4); Lymphocytes # 24.4 K/mcL (0.6-4.6); Lymphocytes % 75.6 %; Mean Corpuscular HGB Conc 30.9 g/dL (31.6-35.5); Mean Corpuscular Hemoglobin 27.9 pg (28.0-33.3); Mean Corpuscular Volume 90.4 fL (83.0-100.0); Mean Platelet Volume 9.3 fL (9.4-12.4); Monocytes % 2.3 %; Platelet Count 252 K/mcL (140-400); Red Blood Count 3.12 M/mcL (4.19-5.50); Segmented Neutrophils % 15.6 %
[2019-03-03 05:20] LABS: Eosinophils # 1.8 K/mcL (0.0-0.6); Monocytes # 0.7 K/mcL (0.0-1.3)
[2019-03-03 05:22] LABS: BUN/Creatinine Ratio 31 (6-26); Blood Urea Nitrogen 15 mg/dL (6-20); Carbon Dioxide 28 mEq/L (23-29); Chloride 104 mEq/L (98-107); Glucose 115 mg/dL (70-105); Osmolality,Calculated 288 (280-300); Phosphorous 3.2 mg/dL (2.7-4.5); Potassium 3.7 mEq/L (3.5-5.1); Sodium 138 mEq/L (136-145); eGFR For African Americans > 60 (> 60); eGFR For Non-African Americans > 60 (> 60)
[2019-03-03 05:23] LABS: White Blood Count 32.3 K/mcL (4.3-11.1)
[2019-03-03] MEDS: Insulin LISPRO 300 UNITS/3 ML VIAL SQ SCH ×6 (05:29→23:59)
[2019-03-03] MEDS: *HR* Promethazine 25 MG/ML VIAL IVP PRN ×2 (05:34→17:26)
[2019-03-03] MEDS: Acetaminophen IV 1,000 MG/100 ML INFUS..BTL IVPB SCH ×3 (05:34→17:25)
[2019-03-03] MEDS: Ketorolac 15 MG/ML VIAL IVP SCH ×3 (05:41→17:26)
[2019-03-03] MEDS: Piperacillin/Tazobactam 3.375 GM in 0.9 % Sodium Chloride Mini Bag 100 ML IVPB SCH ×3 (05:41→20:21)
[2019-03-03 06:19] LABS: Platelet Estimate Normal (Normal); Smudge Cells Present (Not Present)
[2019-03-03] MEDS: Potassium Chloride 40 MEQ/200 ML BAG IVPB PRN (07:36)
[2019-03-03] MEDS: Calcium Gluconate 1gm/50mL 1 GM/50 ML BAG IVPB PRN (07:36)
[2019-03-03] MEDS: Pantoprazole 40 MG VIAL IVP SCH (07:44)
[2019-03-03] MEDS ORDERED: Methylnaltrexone 12 MG/0.6 ML SYRINGE SQ ONE (09:02)
[2019-03-03] MEDS ORDERED: Scopolamine Patch 1.5 MG PATCH.TD72 TD ONE (09:05)
[2019-03-03] MEDS: Iron Sucrose Complex 250 MG in 0.9 % Sodium Chloride 250 ML IVPB SCH (09:40)
[2019-03-03] MEDS: Bisacodyl 10 MG RECTAL SUPPOSITORY RC SCH (09:53)
[2019-03-03 16:25] LABS: VBG Ionized Calcium 1.15 mmol/L (1.15-1.35)
[2019-03-03] MEDS ORDERED: Clinimix E 5%-15% SOLUTION 2,000 ML, Parenteral Amino Acid 10% 250 ML with MVI, adult ... IVC SCH (17:00)
[2019-03-03] MEDS ORDERED: 0.9 % Sodium Chloride 500 ML ONE (17:32)
[2019-03-03] MEDS: Ondansetron 4 MG/2 ML VIAL IVP PRN (21:25)
[2019-03-04] MEDS: Acetaminophen IV 1,000 MG/100 ML INFUS..BTL IVPB SCH ×4 (00:05→17:52)
[2019-03-04] MEDS: Ketorolac 15 MG/ML VIAL IVP SCH ×4 (00:05→17:51)
[2019-03-04] MEDS: *HR* Promethazine 25 MG/ML VIAL IVP PRN (00:05)
[2019-03-04] MEDS: Insulin LISPRO 300 UNITS/3 ML VIAL SQ SCH ×5 (04:20→20:41)
[2019-03-04 04:33] LABS: VBG Ionized Calcium 1.18 mmol/L (1.15-1.35)
[2019-03-04 04:48] LABS: BUN/Creatinine Ratio 33 (6-26); Blood Urea Nitrogen 19 mg/dL (6-20); Calcium 8.3 mg/dL (8.6-10.3); Carbon Dioxide 27 mEq/L (23-29); Chloride 106 mEq/L (98-107); Glucose 120 mg/dL (70-105); Magnesium 2.1 mg/dL (1.6-2.6); Osmolality,Calculated 295 (280-300); Potassium 4.2 mEq/L (3.5-5.1); Sodium 141 mEq/L (136-145); eGFR For African Americans > 60 (> 60); eGFR For Non-African Americans > 60 (> 60)
[2019-03-04] MEDS: Heparin 25,000 UNIT/250 ML D5W 25,000 UNIT/250 ML IV.SOLN IVC SCH ×2 (05:10→17:48)
[2019-03-04] MEDS: *HR* Heparin 5,000 UNIT/ML VIAL IVP PRN ×2 (05:15→20:53)
[2019-03-04] MEDS: Ondansetron 4 MG/2 ML VIAL IVP PRN (05:16)
[2019-03-04] MEDS: Piperacillin/Tazobactam 3.375 GM in 0.9 % Sodium Chloride Mini Bag 100 ML IVPB SCH ×3 (05:16→20:41)
[2019-03-04] MEDS ORDERED: Ondansetron 4 MG/2 ML VIAL IVP SCH (08:00)
[2019-03-04] MEDS ORDERED: Metoclopramide 10 MG/2 ML VIAL IVP SCH (08:00)
[2019-03-04] MEDS: Pantoprazole 40 MG VIAL IVP SCH (08:23)
[2019-03-04] MEDS: Bisacodyl 10 MG RECTAL SUPPOSITORY RC SCH (08:23)
[2019-03-04] MEDS: Iron Sucrose Complex 250 MG in 0.9 % Sodium Chloride 250 ML IVPB SCH (09:22)
[2019-03-04] MEDS ORDERED: Bisacodyl 10 MG RECTAL SUPPOSITORY RC PRN (12:01)
[2019-03-04] MEDS: hydrOXYzine pamoate 25 MG CAPSULE PO PRN ×2 (12:51→20:53)
[2019-03-04] MEDS: Metoclopramide 10 MG/2 ML VIAL IVP SCH ×2 (16:05→20:41)
[2019-03-04] MEDS: Ondansetron 4 MG/2 ML VIAL IVP SCH ×2 (16:09→20:41)
[2019-03-04] MEDS ORDERED: Clinimix E 5%-15% SOLUTION 2,000 ML, Parenteral Amino Acid 10% 250 ML with MVI, adult ... IVC SCH (17:00)
[2019-03-04] MEDS: DilTIAZem 50 MG in 0.9 % Sodium Chloride 40 ML IVC SCH ×2 (19:39→19:40)
[2019-03-05] MEDS: Ketorolac 15 MG/ML VIAL IVP SCH ×3 (00:26→11:49)
[2019-03-05] MEDS: Acetaminophen IV 1,000 MG/100 ML INFUS..BTL IVPB SCH ×5 (00:26→23:58)
[2019-03-05] MEDS: Insulin LISPRO 300 UNITS/3 ML VIAL SQ SCH ×6 (00:30→21:36)
[2019-03-05] MEDS: Ondansetron 4 MG/2 ML VIAL IVP SCH ×4 (03:53→21:47)
[2019-03-05] MEDS: Metoclopramide 10 MG/2 ML VIAL IVP SCH ×4 (03:53→21:47)
[2019-03-05 04:12] LABS: Hemoglobin 8.8 g/dL (12.9-16.9); Immature Granulocytes % 1.1 % (0-4); Mean Platelet Volume 9.3 fL (9.4-12.4); Nucleated Red Blood Cells 0.1 /100 WBC (0); Segmented Neutrophils % 15.6 %
[2019-03-05 04:14] LABS: Basophils % 0.1 %; Eosinophils % 3.7 %; Lymphocytes % 77.5 %; Mean Corpuscular HGB Conc 30.3 g/dL (31.6-35.5); Mean Corpuscular Hemoglobin 27.6 pg (28.0-33.3); Mean Corpuscular Volume 90.9 fL (83.0-100.0); Monocytes # 0.8 K/mcL (0.0-1.3); Platelet Count 311 K/mcL (140-400); Red Blood Count 3.19 M/mcL (4.19-5.50); Red Cell Distribution Width 14.8 % (11.5-14.5)
[2019-03-05 04:16] LABS: Eosinophils # 1.5 K/mcL (0.0-0.6); Lymphocytes # 32.2 K/mcL (0.6-4.6); Neutrophils # 6.5 K/mcL (1.6-8.9)
[2019-03-05 04:19] LABS: White Blood Count 41.6 K/mcL (4.3-11.1)
[2019-03-05 04:26] LABS: VBG Ionized Calcium 1.13 mmol/L (1.15-1.35)
[2019-03-05 04:34] LABS: BUN/Creatinine Ratio 25 (6-26); Blood Urea Nitrogen 14 mg/dL (6-20); Calcium 8.2 mg/dL (8.6-10.3); Carbon Dioxide 24 mEq/L (23-29); Chloride 108 mEq/L (98-107); Glucose 115 mg/dL (70-105); Magnesium 1.9 mg/dL (1.6-2.6); Osmolality,Calculated 293 (280-300); Phosphorous 3.1 mg/dL (2.7-4.5); Potassium 3.8 mEq/L (3.5-5.1); Sodium 141 mEq/L (136-145); eGFR For African Americans > 60 (> 60); eGFR For Non-African Americans > 60 (> 60)
[2019-03-05 04:41] LABS: Platelet Estimate Normal (Normal)
[2019-03-05 04:42] LABS: Reactive Lymphocytes Present (Not Present); Smudge Cells Present (Not Present)
[2019-03-05] MEDS: DilTIAZem 50 MG in 0.9 % Sodium Chloride 40 ML IVC SCH (05:23)
[2019-03-05] MEDS: Heparin 25,000 UNIT/250 ML D5W 25,000 UNIT/250 ML IV.SOLN IVC SCH ×2 (05:39→16:45)
[2019-03-05] MEDS: Piperacillin/Tazobactam 3.375 GM in 0.9 % Sodium Chloride Mini Bag 100 ML IVPB SCH ×3 (05:40→21:47)
[2019-03-05] MEDS: Potassium Chloride 40 MEQ/200 ML BAG IVPB PRN (05:46)
[2019-03-05] MEDS: Pantoprazole 40 MG VIAL IVP SCH (09:42)
[2019-03-05] MEDS ORDERED: Clinimix E 5%-15% SOLUTION 2,000 ML, Parenteral Amino Acid 10% 250 ML with MVI, adult ... IVC SCH (17:00)
[2019-03-06] MEDS: hydrOXYzine pamoate 25 MG CAPSULE PO PRN ×2 (00:01→21:22)
[2019-03-06] MEDS: *HR* Promethazine 25 MG/ML VIAL IVP PRN ×2 (00:02→21:23)
[2019-03-06] MEDS: Insulin LISPRO 300 UNITS/3 ML VIAL SQ SCH ×8 (01:39→23:42)
[2019-03-06] MEDS: Heparin 25,000 UNIT/250 ML D5W 25,000 UNIT/250 ML IV.SOLN IVC SCH (02:54)
[2019-03-06] MEDS: Metoclopramide 10 MG/2 ML VIAL IVP SCH ×4 (02:54→21:23)
[2019-03-06] MEDS: Ondansetron 4 MG/2 ML VIAL IVP SCH ×2 (02:54→08:43)
[2019-03-06 03:18] LABS: Lymphocytes % 79.1 %; Mean Platelet Volume 9.2 fL (9.4-12.4); Nucleated Red Blood Cells 0.1 /100 WBC (0)
[2019-03-06 03:20] LABS: Basophils % 0.1 %; Eosinophils # 1.5 K/mcL (0.0-0.6); Eosinophils % 4.1 %; Hematocrit 27.6 % (37.5-50.1); Hemoglobin 8.5 g/dL (12.9-16.9); Mean Corpuscular HGB Conc 30.8 g/dL (31.6-35.5); Mean Corpuscular Hemoglobin 28.1 pg (28.0-33.3); Mean Corpuscular Volume 91.4 fL (83.0-100.0); Platelet Count 299 K/mcL (140-400); Red Blood Count 3.02 M/mcL (4.19-5.50); Red Cell Distribution Width 15.2 % (11.5-14.5); Segmented Neutrophils % 13.7 %
[2019-03-06 03:26] LABS: Lymphocytes # 29.2 K/mcL (0.6-4.6); Monocytes # 0.7 K/mcL (0.0-1.3); Neutrophils # 5.1 K/mcL (1.6-8.9); White Blood Count 36.9 K/mcL (4.3-11.1)
[2019-03-06 03:43] LABS: BUN/Creatinine Ratio 19 (6-26); Blood Urea Nitrogen 11 mg/dL (6-20); Calcium 8.4 mg/dL (8.6-10.3); Carbon Dioxide 26 mEq/L (23-29); Chloride 105 mEq/L (98-107); Glucose 135 mg/dL (70-105); Magnesium 2.1 mg/dL (1.6-2.6); Osmolality,Calculated 289 (280-300); Phosphorous 3.4 mg/dL (2.7-4.5); Sodium 139 mEq/L (136-145); eGFR For African Americans > 60 (> 60); eGFR For Non-African Americans > 60 (> 60)
[2019-03-06 03:59] LABS: Platelet Estimate Normal (Normal); Smudge Cells Present (Not Present)
[2019-03-06] MEDS: Acetaminophen IV 1,000 MG/100 ML INFUS..BTL IVPB SCH ×4 (05:19→23:57)
[2019-03-06] MEDS: Piperacillin/Tazobactam 3.375 GM in 0.9 % Sodium Chloride Mini Bag 100 ML IVPB SCH ×3 (05:20→21:22)
[2019-03-06] MEDS: Pantoprazole 40 MG VIAL IVP SCH (08:49)
[2019-03-06] MEDS: *HR* Rivaroxaban 10 MG TABLET PO SCH (12:17)
[2019-03-06] MEDS ORDERED: Clinimix E 5%-15% SOLUTION 2,000 ML, Parenteral Amino Acid 10% 250 ML with MVI, adult ... IVC SCH (17:00)
[2019-03-07] MEDS: Metoclopramide 10 MG/2 ML VIAL IVP SCH ×4 (03:19→21:00)
[2019-03-07 04:06] LABS: BUN/Creatinine Ratio 16 (6-26); Blood Urea Nitrogen 11 mg/dL (6-20); Calcium 8.6 mg/dL (8.6-10.3); Carbon Dioxide 24 mEq/L (23-29); Chloride 107 mEq/L (98-107); Glucose 110 mg/dL (70-105); Osmolality,Calculated 288 (280-300); Phosphorous 4.1 mg/dL (2.7-4.5); Potassium 4.1 mEq/L (3.5-5.1); Sodium 139 mEq/L (136-145); eGFR For African Americans > 60 (> 60); eGFR For Non-African Americans > 60 (> 60)
[2019-03-07 04:08] LABS: Hemoglobin 8.9 g/dL (12.9-16.9); Nucleated Red Blood Cells 0.1 /100 WBC (0)
[2019-03-07 04:10] LABS: Hematocrit 28.8 % (37.5-50.1); Mean Corpuscular HGB Conc 30.9 g/dL (31.6-35.5); Mean Corpuscular Hemoglobin 28.3 pg (28.0-33.3); Mean Corpuscular Volume 91.4 fL (83.0-100.0); Mean Platelet Volume 9.2 fL (9.4-12.4); Platelet Count 291 K/mcL (140-400); Red Blood Count 3.15 M/mcL (4.19-5.50); Red Cell Distribution Width 15.9 % (11.5-14.5)
[2019-03-07 04:22] LABS: White Blood Count 32.3 K/mcL (4.3-11.1)
[2019-03-07 04:47] LABS: Lymphocytes # 16.8 K/mcL (0.6-4.6); Monocytes # 1.3 K/mcL (0.0-1.3); Neutrophils # 14.2 K/mcL (1.6-8.9); Smudge Cells Present (Not Present)
[2019-03-07 04:48] LABS: Platelet Estimate Normal (Normal); Reactive Lymphocytes Present (Not Present)
[2019-03-07] MEDS: Piperacillin/Tazobactam 3.375 GM in 0.9 % Sodium Chloride Mini Bag 100 ML IVPB SCH (05:18)
[2019-03-07] MEDS: Acetaminophen IV 1,000 MG/100 ML INFUS..BTL IVPB SCH (05:20)
[2019-03-07] MEDS: Pantoprazole 40 MG VIAL IVP SCH (09:00)
[2019-03-07] MEDS: Insulin LISPRO 300 UNITS/3 ML VIAL SQ SCH (09:14)
[2019-03-07] MEDS ORDERED: *HR* FentaNYL (PF) 100 MCG/2 ML VIAL IVP ONE (12:23)
[2019-03-07] MEDS ORDERED: *HR* FentaNYL (PF) 100 MCG/2 ML VIAL ONE (12:25)
[2019-03-07] MEDS: *HR* Rivaroxaban 10 MG TABLET PO SCH (17:10)
[2019-03-08] MEDS: hydrOXYzine pamoate 25 MG CAPSULE PO PRN ×2 (00:37→20:01)
[2019-03-08 02:05] LABS: VBG Ionized Calcium 1.18 mmol/L (1.15-1.35)
[2019-03-08 02:21] LABS: BUN/Creatinine Ratio 21 (6-26); Blood Urea Nitrogen 14 mg/dL (6-20); Calcium 8.6 mg/dL (8.6-10.3); Carbon Dioxide 24 mEq/L (23-29); Chloride 104 mEq/L (98-107); Glucose 102 mg/dL (70-105); Osmolality,Calculated 281 (280-300); Phosphorous 3.8 mg/dL (2.7-4.5); Sodium 135 mEq/L (136-145); eGFR For African Americans > 60 (> 60); eGFR For Non-African Americans > 60 (> 60)
[2019-03-08] MEDS: Metoclopramide 10 MG/2 ML VIAL IVP SCH ×4 (03:34→20:02)
[2019-03-08] MEDS: Pantoprazole 40 MG VIAL IVP SCH (08:01)
[2019-03-08] MEDS: DilTIAZem CD (24hr) 120 MG CAP.ER.24H PO SCH (08:01)
[2019-03-08] MEDS: *HR* Rivaroxaban 10 MG TABLET PO SCH (17:19)
[2019-03-08] MEDS: Acetaminophen 325 MG TABLET PO PRN (20:01)
[2019-03-09] MEDS: Metoclopramide 10 MG/2 ML VIAL IVP SCH ×4 (03:50→20:52)
[2019-03-09 05:26] LABS: VBG Ionized Calcium 1.17 mmol/L (1.15-1.35)
[2019-03-09 05:27] LABS: BUN/Creatinine Ratio 21 (6-26); Blood Urea Nitrogen 16 mg/dL (6-20); Calcium 8.8 mg/dL (8.6-10.3); Carbon Dioxide 24 mEq/L (23-29); Chloride 102 mEq/L (98-107); Glucose 115 mg/dL (70-105); Magnesium 2.1 mg/dL (1.6-2.6); Osmolality,Calculated 288 (280-300); Phosphorous 3.9 mg/dL (2.7-4.5); Potassium 4.1 mEq/L (3.5-5.1); Sodium 138 mEq/L (136-145); eGFR For African Americans > 60 (> 60); eGFR For Non-African Americans > 60 (> 60)
[2019-03-09] MEDS: DilTIAZem CD (24hr) 120 MG CAP.ER.24H PO SCH (08:22)
[2019-03-09] MEDS: Pantoprazole 40 MG VIAL IVP SCH (08:22)
[2019-03-09] MEDS ORDERED: *HR* FentaNYL (PF) 100 MCG/2 ML VIAL IVP ONE (12:02)
[2019-03-09] MEDS: *HR* Rivaroxaban 10 MG TABLET PO SCH (16:32)
[2019-03-09] MEDS: hydrOXYzine pamoate 25 MG CAPSULE PO PRN (21:00)
[2019-03-10] MEDS: Metoclopramide 10 MG/2 ML VIAL IVP SCH ×2 (03:59→08:54)
[2019-03-10] MEDS: Pantoprazole 40 MG VIAL IVP SCH (08:54)
[2019-03-10] MEDS: DilTIAZem CD (24hr) 120 MG CAP.ER.24H PO SCH (08:55)
[2019-03-10] MEDS: *HR* Rivaroxaban 10 MG TABLET PO SCH (17:44)
[2019-03-10] MEDS: Acetaminophen 325 MG TABLET PO PRN (21:32)
[2019-03-10] MEDS: hydrOXYzine pamoate 25 MG CAPSULE PO PRN (21:33)
[2019-03-11 07:30] VITALS: BP 129/91
[2019-03-11] MEDS: DilTIAZem CD (24hr) 120 MG CAP.ER.24H PO SCH (07:36)
== END 2019-03-11 09:57 | disposition home or self-care (01) | DRG 330 ==
LOC: EMEROOARM 14:34 → 3ANU 14:34 → 2NNU 02-25 18:42
PROVIDERS: ADMIT Surgery; ATTEND Surgery